=== PATIENT | male | born 1965 | race Caucasian/White ===

== ENCOUNTER → 2020-11-02 14:30 | Outpatient (CLI) | payer BC, SELFPAY ==
[2020-11-02 17:37] LABS: Prostate Specific Ag, Diagnost 2.38 ng/ml (0.0-4.0)
== END ==
PROVIDERS: Visit Provider Urology
DX: N40.0 Benign prostatic hyperplasia without lower urinary tract symptoms (principal)
CPT/HCPCS: 36415; 84153

== ENCOUNTER → 2021-03-30 14:09 | Outpatient (CLI) | payer OTHER, SELFPAY ==
--- NOTE | 2021-03-30 14:14 | MR_ITS ---
PROCEDURE: MR KNEE LT WO CON CLINICAL INDICATION: STRAIN OF LEFT KNEE Medial sided knee pain COMPARISON: No exams were available for comparison TECHNIQUE: Routine multiplanar multi echo sequences are performed without gadolinium enhancement. FINDINGS: Posterior cruciate ligament is intact. There is some mild sparsely of the fibers of the ACL with mild amount of edema within the ACL which may be due to sprain versus partial tear. A full-thickness tear is not felt to be present.. The collateral ligaments, patellar tendon, and quadriceps tendon appear intact. There is a longitudinal tear involving the posterior horn of the medial meniscus anteriorly. The lateral meniscus has an unremarkable appearance. There is mild lateral translation of the tibia at approximately 4 mm. Mild osteoarthritic changes are present. The patellar cartilage is preserved. There is mild lateral patellar subluxation. The patellofemoral ligaments do appear intact. There is a small knee joint effusion. There is a well-circumscribed lytic lesion of the distal femur medially at the metaphyseal epiphyseal junction. This measures 15 by 10 mm. The margins are well-circumscribed. This has a geographic appearance with some micro nodularity of the margin. Internally there are areas of heterogeneous decreased T2 signal there is a small amount of pretibial edema. IMPRESSION: 1. Longitudinal tear involves the posterior horn of the medial meniscus anteriorly. This tear extends to the medial free edge of the meniscus. 2. Suspect sprain/partial tear of the ACL. No evidence of full-thickness tear. 3. Mild osteoarthritic change with small knee joint effusion. 4. Well-circumscribed complex lytic lesion of the distal femur medially at the diaphyseal epiphyseal junction. This may represent an enchondroma. Imaging keys, 1 cannot exclude a low-grade chondral carcinoma. Consider orthopedic consultation and CT to better interrogate the margins of the lesion and to identify any possible calcified matrix. Follow-up to confirm stability is suggested.. Dictated by: Vernon Rodriguez MD 03/31/2021 11:10 Vernon Rodriguez MD in [place] 03/31/2021 11:10
== END ==
PROVIDERS: PCP Family Medicine; Visit Provider Preventive Medicine Occupational Medicine
DX: S86.912A Strain of unspecified muscle(s) and tendon(s) at lower leg level, left leg, initial encounter (principal)
CPT/HCPCS: 73721

== ENCOUNTER 2021-05-12 09:00 | Outpatient (RCR) | payer OTHER, SELFPAY | END 2021-05-12 09:05 | disposition home or self-care (01) | LOC: PT 09:00 | PROVIDERS: Visit Provider Orthopaedic Surgery | DX: M25.562 Pain in left knee (principal); S83.242A Other tear of medial meniscus, current injury, left knee, initial encounter | CPT/HCPCS: 97010; 97014; 97016; 97033; 97035; 97110; 97163; G0283 ==

== ENCOUNTER 2021-10-14 14:00 | Outpatient (RCR) | payer OTHER, SELFPAY | END 2021-10-14 14:05 | disposition home or self-care (01) | LOC: PT 14:00 | PROVIDERS: Visit Provider Orthopaedic Surgery | DX: M25.562 Pain in left knee (principal); S83.242A Other tear of medial meniscus, current injury, left knee, initial encounter | CPT/HCPCS: 97010; 97014; 97016; 97110; 97163; 97164; G0283 ==

== ENCOUNTER → 2021-11-05 17:02 | Outpatient (CLI) | payer OTHER, SELFPAY ==
--- NOTE | 2021-11-05 17:06 | MR_ITS ---
PROCEDURE INFORMATION: Exam: MR Left Lower Extremity Joint Without Contrast, Knee Exam date and time: 11/05/2021 5:06 PM Age: 56 years old Clinical indication: Pain; Knee; Left; Prior surgery; Surgery date: 1-6 months; Additional info: Left knee pain TECHNIQUE: Imaging protocol: MR of the Left lower extremity joint without contrast. Exam focused on the knee. COMPARISON: MR KNEE LT WO CON 03/30/2021 2:30 PM FINDINGS: Bones and cartilage: Unchanged 1.2 x 1.6 x 1.2 cm chondroid lesion in the medial femoral condyle, with small foci of intrinsic mineralization and a circumscribed margin, most likely an enchondroma. Bone island in the proximal tibia. No acute fracture. Mild tricompartmental osteophytosis. Thinning with a few small partial-thickness defects noted in the medial tibiofemoral compartment. Minimal surface fraying of the median patellar ridge and lateral patellar facet cartilage. Lateral tibiofemoral compartment cartilage is relatively well preserved. Joint spaces: Small joint effusion. Bursae: Small Luong's cyst measuring approximately 1.5 x 1.0 x 3.0 cm. Medial meniscus: Partial extrusion of the medial meniscus anterior horn, similar to prior. Interval truncation of the medial meniscus body and posterior horn, suggesting post-meniscectomy change for treatment of previously demonstrated tear. There is mild intrasubstance high signal within the posterior horn of the medial meniscus without extension to the articular surface. Lateral meniscus: Lateral meniscus is normal. Anterior cruciate ligament: Chronic partial injury of the anterior cruciate ligament, without evidence of an acute tear. Posterior cruciate ligament: Unremarkable. No tear. Medial capsule and supporting structures: Unremarkable. No tear. Lateral capsule and supporting structures: Unremarkable. No tear. Extensor mechanism of knee: Unremarkable. No tear. Muscles: Unremarkable. Soft tissues: Nonspecific anterior subcutaneous edema in the infrapatellar/pretibial region, without organized fluid collection. IMPRESSION: 1. Suspected post meniscectomy changes of the medial meniscus body and posterior horn. Intrasubstance high signal in posterior horn of the medial meniscus without discrete residual or recurrent tear. 2. Mild grade 2 chondromalacia in the medial tibiofemoral and patellofemoral compartments. Mild osteoarthrosis. 3. Chronic partial injury of the ACL. 4. Small joint effusion. Small Luong's cyst. 5. Nonspecific anterior subcutaneous edema. 6. 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
== END ==
PROVIDERS: PCP Family Medicine; Visit Provider Orthopaedic Surgery
DX: S83.242D Other tear of medial meniscus, current injury, left knee, subsequent encounter (principal)
CPT/HCPCS: 73721

== ENCOUNTER → 2021-12-14 15:19 | Outpatient (CLI) | payer OTHER, SELFPAY | PROVIDERS: Visit Provider Nurse Practitioner | DX: U07.1 COVID-19 (principal) | CPT/HCPCS: C9803; U0003; U0005 ==

== ENCOUNTER → 2022-02-01 12:10 | Outpatient (CLI) | payer OTHER, SELFPAY | PROVIDERS: PCP Family Medicine; Visit Provider Nurse Practitioner Family | DX: R00.2 Palpitations (principal); I10 Essential (primary) hypertension; E78.5 Hyperlipidemia, unspecified; R94.31 Abnormal electrocardiogram [ECG] [EKG] | CPT/HCPCS: 93270 ==

== ENCOUNTER → 2022-02-09 09:26 | Outpatient (CLI) | payer BC, SELFPAY ==
--- NOTE | 2022-02-09 09:28 | CA_ITS ---
APPROVED REPORT EXAM: Comprehensive 2D, Doppler, and color-flow Echocardiogram Poly Operator: DEBRA Gilman, RVS Ht: 6 ft 0 in Wt: 251lbs BSA: 2.35 BP: 140/80 mmHg Indications: MURMUR, Palpitattions. HTN, HLD, Hx-TIA, Abn EKG 2D Dimensions IVSd 1.16 cm LVEF (Visual) 84.90 % PWd 1.24 cm LA Volume 72.70 mL LVDd 4.96 cm LA Volume Index 30.90 mL/m2 (M/F) 16-34 LVDs 2.27 cm Aortic Root 2.73 cm Left Atrium 4.03 cm LVOT 1.80 cm (M/F) 1.5-2.5 M-Mode Dimensions RVDd 2.50 cm (0.9-2.6) LA Diam 4.57 cm (1.9-4.0) LVDd 5.43 cm (3.5-5.7) Ao Diam 3.20 cm (2.0-3.7) LVDs 2.92 cm (3.5-5.7) IVSd 1.06 cm (0.6-1.1) PWd 0.91 cm (0.6-1.1) EF (Teich) 77.10% EPSs 0.46 cm FS 46.20% EDV (Teich) 143.10 mL TAPSE 2.91 (<1.7) ESV (Teich) 32.80 mL LV Diastology E Decel Time 290.00 (160-240 msec) E/A Ratio 1.03 MED E' 7.40 (< 7 cm/sec) MED A' 9.50 cm/s E'/MED E' Ratio 23.08 (>14) LAT E' 9.70 (<10 cm/sec) LAT A' 7.70 cm/s E/LAT E' Ratio 17.61 (>14) Aortic Valve LVOT Max 154.00 (70-110 cm/s) LVOT VTI 36.18 cm AoV Peak Ari. 163.00 (50-130 cm/s) AO Peak GR. 10.60 mmHg AO Mean GR. 5.40 (<5 mmHg) AO VTI 35.83 (18-25 cm) CRISTOFER (VTI) 2.57 (2.5-4.5 cm2) Mitral Valve MV A Velocity 165.00 (40-130 cm/s) E/A Ratio 1.03 MV Decel. Time 290.00 (160-240 ms) MV Mean Gr. 1.40 (<2mmHg) MV PHT 67.00 ms Pulmonary Valve PV Peak Velocity 95.00 (50-150 cm/s) Tricuspid Valve TR P. Velocity 239.00 cm/s RAP Estimate 10.00 mmHg RVSP 32.80 mmHg Left Ventricle Left atrium is mildly enlarged, left ventricle is normal size, mild concentric left ventricular hypertrophy, visually estimated ejection fraction 55% with no regional wall motion abnormality, grade 1 diastolic dysfunction seen without tissue Doppler evidence of raise left atrial pressure. Right Ventricle Right atrium and right ventricle are normal size and contractility. Aortic Valve Aortic valve is minimally thickened and fibrosed, there is no aortic stenosis or aortic insufficiency. Mitral Valve Mitral valve grossly normal, there is trace mitral regurgitation. Tricuspid Valve Tricuspid grossly normal, there is trace tricuspid regurgitation, tricuspid regurgitation jet velocity is inadequate for calculation of the right ventricular systolic pressure. Pulmonic Valve Pulmonic valve is poorly visualized. Great Vessels Aortic root is normal size. Inferior vena cava is poorly visualized. Pericardium No significant pericardial effusion. Conclusion 1. Mildly enlarged left atrium, normal left ventricular size, mild concentric left ventricular hypertrophy, visually estimated ejection fraction 55% with no regional wall motion abnormality, grade 1 diastolic dysfunction seen without tissue Doppler evidence of raise left atrial pressure. 2. Trace mitral and tricuspid regurgitation. 3. No significant pericardial effusion. 4. Inferior vena cava is poorly visualized. Electronically signed by : Ulisses Scott MD 02/09/2022 19:55:54
== END ==
PROVIDERS: PCP Family Medicine; Visit Provider Nurse Practitioner Family
DX: R00.2 Palpitations (principal); I10 Essential (primary) hypertension; E78.5 Hyperlipidemia, unspecified; R94.31 Abnormal electrocardiogram [ECG] [EKG]
CPT/HCPCS: 93306

== ENCOUNTER → 2022-11-09 11:33 | Outpatient (CLI) | payer BC, SELFPAY ==
[2022-11-09 12:06] LABS: Basophils # 0.1 K/mm3 (0-0.2); Basophils % 1.8 % (0.1-2.0); Eosinophils # 0.2 K/mm3 (0.0-0.4); Eosinophils % 3.8 % (0.1-12.0); Hemoglobin 15.4 g/dL (14.1-18.0); Lymphocytes # 1.8 K/mm3 (0.7-4.5); Lymphocytes % 31.8 % (10-50); Mean Corpuscular HGB Conc 33.5 g/dL (31.8-35.4); Mean Corpuscular Hemoglobin 28.1 pg (27.0-31.2); Mean Corpuscular Volume 83.9 fl (80-94); Mean Platelet Volume 7.2 fl (7.4-10.4); Monocytes # 0.3 K/mm3 (0.1-1.0); Monocytes % 5.6 % (1.7-9.3); Neutrophils # 3.2 K/mm3 (1.8-7.8); Platelet Count 316 K/mm3 (142-424); Red Blood Count 5.48 M/mm3 (4.60-6.20); Red Cell Distribution Width 13.6 % (11.5-17.5); White Blood Count 5.7 K/mm3 (4.8-10.8)
[2022-11-09 12:59] LABS: Alanine Aminotransferase 26 U/L (12-78); Albumin Level 4.5 g/dl (3.5-5.0); Alkaline Phosphatase 54 U/L (38-126); Anion Gap 10.3 mEq/L (5-15); Aspartate Amino Transferase 32 U/L (17-59); Bilirubin,Direct 0.1 mg/dl (0.0-0.4); Bilirubin,Indirect 0.3 mg/dL (0.0-0.9); Bilirubin,Total 0.4 mg/dl (0.2-1.3); Bilirubin,Unconjugated 0.3 mg/dL (0.0-1.1); Blood Urea Nitrogen 19 mg/dl (9-20); Calcium 9.4 mg/dl (8.4-10.2); Carbon Dioxide 32 mmol/L (22.0-30.0); Chloride 104 mmol/L (98-107); Chol/HDL Ratio 6.6 (1-3.5); Cholesterol 166 mg/dl (140-200); Estimated Glomerular Filt Rate 69 ml/min (>60); GFR (African American) 83 ML/MIN (>60); Glucose 104 mg/dl (74-100); HDL Cholesterol 25 mg/dl (40-60); Magnesium 2.1 mg/dl (1.6-2.3); Potassium 4.3 mmoL/L (3.5-5.1); Sodium 142 mmol/L (136-145); Total Protein,Serum 7.1 g/dl (6.3-8.2); Triglycerides 206 mg/dl (30-150); VLDL Cholesterol 41 mg/dL (0-40)
[2022-11-09 13:10] LABS: Direct LDL Cholesterol 102.87 mg/dL (100-129)
[2022-11-09 13:17] LABS: Free T4 (Free Thyroxine) 0.58 ng/dl (0.78-2.19)
== END ==
PROVIDERS: PCP Nurse Practitioner Family; Visit Provider Physician Assistant
DX: R00.2 Palpitations (principal); I48.0 Paroxysmal atrial fibrillation; I10 Essential (primary) hypertension; E78.5 Hyperlipidemia, unspecified; R94.31 Abnormal electrocardiogram [ECG] [EKG]; Z79.899 Other long term (current) drug therapy
CPT/HCPCS: 36415; 80048; 80061; 80076; 83735; 84439; 84443; 85025

== ENCOUNTER → 2022-11-21 13:20 | Outpatient (CLI) | payer BC, SELFPAY ==
--- NOTE | 2022-11-21 13:27 | US_ITS ---
FINAL REPORT CLINICAL HISTORY: THYROID NODULE, pt stated abn labs FINDINGS: THYROID ULTRASOUND Thyroid gland is slightly enlarged. The right lobe measures 54 x 12 x 11 mm. The left lobe measures 49 x 11 x 10 mm. The parenchyma shows normal echogenicity. No dominant mass is seen. IMPRESSION: Slightly enlarged thyroid. No dominant mass identified. Reviewed, Interpreted and Dictated by Pillo Alcocer III, MD Transcribed by Steven Saldana Authenticated and [facility]
== END ==
LOC: RAD 13:21
PROVIDERS: PCP Nurse Practitioner Family; Visit Provider Nurse Practitioner Family
DX: E03.9 Hypothyroidism, unspecified (principal); E04.1 Nontoxic single thyroid nodule
CPT/HCPCS: 76536

== ENCOUNTER → 2023-11-13 16:08 | Outpatient (CLI) | payer BC, SELFPAY ==
[2023-11-13 16:16] LABS: Microscopic, Urine URINE MICROSCOPIC (MICROSCOPIC)
[2023-11-13 16:39] LABS: Appearance,Urine CLEAR (Clear); Bilirubin,Urine Negative (Negative); Blood, Urine Negative (Negative); Color,Urine YELLOW (Yellow); Glucose,Urine (UA) Negative (Negative); Ketones,Urine Negative (Negative); Leukocyte Esterase,Urine Negative (Negative); Nitrate,Urine Negative (Negative); Protein,Urine TRACE (Negative); Specific Gravity, Urine >= 1.030 (1.005-1.030); Urobilinogen,Urine 0.2 EU/dl (0.2)
[2023-11-13 16:45] LABS: Squamous Epithelial Cell,Urine Occasional #/hpf (0-5); WBC,Urine Occasional #/hpf (0-3)
[2023-11-13 16:55] LABS: Basophils % 0.4 % (0.1-2.0); Eosinophils # 0.2 K/mm3 (0.0-0.4); Eosinophils % 2.2 % (0.1-12.0); Hematocrit 43.3 % (42.0-52.0); Lymphocytes # 2.1 K/mm3 (0.7-4.5); Lymphocytes % 29.8 % (10-50); Mean Corpuscular HGB Conc 34.6 g/dL (31.8-35.4); Mean Corpuscular Hemoglobin 28.3 pg (27.0-31.2); Mean Platelet Volume 6.5 fl (7.4-10.4); Monocytes # 0.3 K/mm3 (0.1-1.0); Monocytes % 4.5 % (1.7-9.3); Neutrophils # 4.6 K/mm3 (1.8-7.8); Neutrophils % 63.2 % (37.0-80.0); Platelet Count 278 K/mm3 (142-424); Red Blood Count 5.28 M/mm3 (4.60-6.20); Red Cell Distribution Width 13.3 % (11.5-17.5); White Blood Count 7.2 K/mm3 (4.8-10.8)
[2023-11-13 17:17] LABS: Alanine Aminotransferase 20 U/L (12-78); Albumin Level 4.3 g/dl (3.5-5.0); Albumin/Globulin Ratio 1.4 (1.1-1.8); Alkaline Phosphatase 51 U/L (38-126); Anion Gap 9.4 mEq/L (5-15); Aspartate Amino Transferase 37 U/L (17-59); Bilirubin,Total 0.4 mg/dl (0.2-1.3); Blood Urea Nitrogen 18 mg/dl (9-20); Calcium 8.6 mg/dl (8.4-10.2); Carbon Dioxide 28 mmol/L (22.0-30.0); Chloride 106 mmol/L (98-107); Chol/HDL Ratio 6.3 (1-3.5); Cholesterol 133 mg/dl (140-200); Estimated Glomerular Filt Rate 77 ml/min (>60); GFR (African American) 93 ML/MIN (>60); Globulin 3.1 g/dL (1.3-3.2); Glucose 97 mg/dl (74-100); HDL Cholesterol 21 mg/dl (40-60); Potassium 4.4 mmoL/L (3.5-5.1); Sodium 139 mmol/L (136-145); Total Protein,Serum 7.4 g/dl (6.3-8.2); Triglycerides 187 mg/dl (30-150); VLDL Cholesterol 37 mg/dL (0-40)
[2023-11-13 17:28] LABS: Direct LDL Cholesterol 86.66 mg/dL (100-129)
[2023-11-13 17:33] LABS: Free T4 (Free Thyroxine) 1.62 ng/dl (0.78-2.19)
[2023-11-13 17:48] LABS: Prostate Specific Ag Screen 3.3 ng/ml (0.0-4.0)
[2023-11-15 08:17] LABS: Prolactin 6.5 ng/mL (3.6-25.2)
== END ==
LOC: LAB 16:09
PROVIDERS: PCP Nurse Practitioner Family; Visit Provider Nurse Practitioner Family
DX: R35.0 Frequency of micturition (principal); E03.9 Hypothyroidism, unspecified; I48.0 Paroxysmal atrial fibrillation; I10 Essential (primary) hypertension
CPT/HCPCS: 36415; 80053; 80061; 81001; 84146; 84439; 84443; 85025; G0103

== ENCOUNTER → 2023-11-17 13:07 | Outpatient (CLI) | payer BC, SELFPAY ==
--- NOTE | 2023-11-17 13:13 | US_ITS ---
FINAL REPORT CLINICAL HISTORY: HYPOTHYROIDISM COMPARISON: 11/21/2022 FINDINGS: THYROID ULTRASOUND: The right lobe of the thyroid measures 5 x 1.2 x 1.3 cm in size. The left lobe of the thyroid gland measures 4 x 1.3 x 1 cm in size. The isthmus of the thyroid gland measures 3.4 mm in thickness. No nodules or masses are noted in the thyroid gland. No changes noted since the prior ultrasound of 2021. IMPRESSION: Unremarkable thyroid ultrasound. No focal mass or nodule identified. Reviewed, Interpreted and Dictated by Can Whitehead MD Transcribed by Jessica Su Authenticated and [facility]
== END ==
LOC: RAD 13:07
PROVIDERS: PCP Nurse Practitioner Family; Visit Provider Nurse Practitioner Family
DX: E03.9 Hypothyroidism, unspecified (principal)
CPT/HCPCS: 76536

== ENCOUNTER 2023-12-18 14:36 | Outpatient (CLI) | payer BC, SELFPAY ==
--- NOTE | 2023-12-18 14:43 | CT_ITS ---
FINAL REPORT TECHNIQUE: Axial CT images of the chest were obtained without contrast. Low-dose protocol was utilized. This study was performed with techniques to keep radiation doses as low as reasonably achievable (ALARA). Individualized dose reduction techniques using automated exposure control or adjustment of mA and/or kV according to the patient's size were employed. CLINICAL HISTORY: Former smoker, quit 10 years ago. Patient did smoke half a pack of cigarettes a day for 20 years. He is exposed to second hand smoke. States he is not currently having problems breathing at this time. This is his first low dose lung screening exam. COMPARISON: None FINDINGS: CT CHEST WITHOUT, LOW DOSE SCREENING CT Di Vol: 2.90 mGy DLP: 111.51 mGy*cm There is no mediastinal mass or adenopathy. The heart size is normal. There are mild coronary artery calcifications. There is no pleural or pericardial effusion. The lung windows show a 3 mm noncalcified nodule in the right upper lobe best seen on image 32 of series 4. Limited images of the upper abdomen demonstrate no acute findings. IMPRESSION: LR Category 2: 12 month follow-up low-dose chest CT is recommended. Reviewed, Interpreted and Dictated by Can Whitehead MD Transcribed by Elin Edwards Authenticated and [facility]
== END 2023-12-18 23:59 ==
LOC: RAD 14:39
PROVIDERS: PCP Nurse Practitioner Family; Visit Provider Nurse Practitioner Family
DX: Z87.891 Personal history of nicotine dependence (principal)
CPT/HCPCS: 71271

== ENCOUNTER 2024-11-25 10:27 | Outpatient (CLI) | payer BC, SELFPAY ==
--- NOTE | 2024-11-25 10:30 | CT_ITS ---
FINAL REPORT CLINICAL HISTORY: TOBACCO USE current smoker 1/2ppd x46 years COMPARISON: 12/18/2023 FINDINGS: CTDI vol (mGy): 2.90 DLP: 110.[address] images of the chest were obtained using the low-dose protocol for screening. There is no evidence of mediastinal or hilar mass or adenopathy. No axillary mass or adenopathy is identified. On the lung window images, a stable 3 mm right upper lobe nodule is seen on image 31 of series 4. There is also a right lower lobe nodule measuring 3 mm on series 4, image 60 which is unchanged. Lungs are otherwise clear. Mild coronary artery calcifications are noted. Limited imaging of the upper abdomen is without acute abnormality. IMPRESSION: Stable right lung nodules. Lung RADS category 2. Recommend 12 month followup low-dose CT for further evaluation. Reviewed, Interpreted and Dictated by Maritza Portillo MD Transcribed by Melly Rojas Authenticated and [facility]
[2024-11-25 11:34] LABS: Microscopic, Urine URINE MICROSCOPIC (MICROSCOPIC)
[2024-11-25 11:51] LABS: Appearance,Urine CLEAR (Clear); Bilirubin,Urine Negative (Negative); Blood, Urine Negative (Negative); Color,Urine YELLOW (Yellow); Glucose,Urine (UA) Negative (Negative); Ketones,Urine Negative (Negative); Leukocyte Esterase,Urine Negative (Negative); Nitrate,Urine Negative (Negative); Protein,Urine Negative (Negative); Specific Gravity, Urine >= 1.030 (1.005-1.030); Urobilinogen,Urine 0.2 EU/dl (0.2)
[2024-11-25 12:00] LABS: Squamous Epithelial Cell,Urine Occasional #/hpf (0-5)
[2024-11-25 12:02] LABS: Basophils % 0.5 % (0.1-2.0); Eosinophils # 0.2 K/mm3 (0.0-0.4); Eosinophils % 2.6 % (0.1-12.0); Hematocrit 43.2 % (42.0-52.0); Hemoglobin 14.9 g/dL (14.1-18.0); Lymphocytes # 1.7 K/mm3 (0.7-4.5); Lymphocytes % 26.4 % (10-50); Mean Corpuscular HGB Conc 34.5 g/dL (31.8-35.4); Mean Corpuscular Hemoglobin 28.8 pg (27.0-31.2); Mean Corpuscular Volume 83.4 fl (80-94); Mean Platelet Volume 8.7 fl (7.4-10.4); Monocytes # 0.5 K/mm3 (0.1-1.0); Neutrophils # 4.2 K/mm3 (1.8-7.8); Neutrophils % 63.2 % (37.0-80.0); Platelet Count 238 K/mm3 (142-424); Red Blood Count 5.18 M/mm3 (4.60-6.20); Red Cell Distribution Width 12.8 % (11.5-17.5); White Blood Count 6.6 K/mm3 (4.8-10.8)
[2024-11-25 17:48] LABS: Alanine Aminotransferase 31 U/L (12-78); Albumin Level 4.4 g/dl (3.5-5.0); Albumin/Globulin Ratio 1.9 (1.1-1.8); Alkaline Phosphatase 40 U/L (38-126); Aspartate Amino Transferase 44 U/L (17-59); Bilirubin,Total 0.7 mg/dl (0.2-1.3); Blood Urea Nitrogen 25 mg/dl (9-20); Calcium 9.1 mg/dl (8.4-10.2); Carbon Dioxide 28 mmol/L (22.0-30.0); Chloride 105 mmol/L (98-107); Chol/HDL Ratio 7.2 (1-3.5); Cholesterol 159 mg/dl (140-200); Estimated Glomerular Filt Rate 76 ml/min (>60); GFR (African American) 93 ML/MIN (>60); Globulin 2.3 g/dL (1.3-3.2); Glucose 116 mg/dl (74-100); HDL Cholesterol 22 mg/dl (40-60); Sodium 139 mmol/L (136-145); Total Protein,Serum 6.7 g/dl (6.3-8.2); Triglycerides 165 mg/dl (30-150); VLDL Cholesterol 33 mg/dL (0-40)
[2024-11-25 17:58] LABS: Direct LDL Cholesterol 100.81 mg/dL (100-129)
[2024-11-25 18:19] LABS: Prostate Specific Ag Screen 3.8 ng/ml (0.0-4.0)
== END 2024-11-25 23:59 | disposition home or self-care (01) ==
LOC: RAD 10:28
PROVIDERS: PCP Nurse Practitioner Family; Visit Provider Nurse Practitioner Family
DX: I48.0 Paroxysmal atrial fibrillation (principal); F17.210 Nicotine dependence, cigarettes, uncomplicated; I10 Essential (primary) hypertension; E03.9 Hypothyroidism, unspecified; Z79.899 Other long term (current) drug therapy
CPT/HCPCS: 36415; 71271; 80050; 80053; 80061; 81001; 84443; 85025; G0103

== ENCOUNTER 2024-12-09 13:26 | Outpatient (CLI) | payer BC, SELFPAY ==
--- NOTE | 2024-12-09 14:46 | XR_ITS ---
FINAL REPORT CLINICAL HISTORY: MID BACK PAIN RT SIDE COMPARISON: None FINDINGS: Three views of the thoracic spine were obtained. There is no fracture present. There is no malalignment. There is moderate diffuse degenerative disc disease and mild spondylosis. IMPRESSION: Degenerative changes. Reviewed, Interpreted and Dictated by Govind Del Real MD Transcribed by Zahra Levine Authenticated and [facility]
[2024-12-09 15:13] LABS: Hemoglobin A1C 5.7 % (4.0-6.0)
--- NOTE | 2024-12-09 15:43 | XR_ITS ---
FINAL REPORT TECHNIQUE: 5 views CLINICAL HISTORY: LOW BACK PAIN FINDINGS: There is no fracture present. There is no malalignment. There is mild diffuse degenerative disc disease with moderate facet arthropathy. There is probable bony neuroforaminal narrowing throughout multiple levels. IMPRESSION: Moderate degenerative changes without fracture. Reviewed, Interpreted and Dictated by Govind Del Real MD Transcribed by Sayra Braswell Authenticated and [facility]
== END 2024-12-09 23:59 | disposition home or self-care (01) ==
LOC: LAB 13:27
PROVIDERS: PCP Nurse Practitioner Family; Visit Provider Nurse Practitioner Family
DX: M54.9 Dorsalgia, unspecified (principal); R73.09 Other abnormal glucose; M54.50 Low back pain, unspecified
CPT/HCPCS: 36415; 72072; 72110; 83036

== ENCOUNTER 2024-12-17 16:27 | Emergency (ER) | payer BC, SELFPAY ==
--- NOTE | 2024-12-17 16:33 | XR_ITS ---
PROCEDURE INFORMATION: Exam: XR Chest Exam date and time: 12/17/2024 4:32 PM Age: 59 years old Clinical indication: Cough and shortness of breath; Additional info: SOA TECHNIQUE: Imaging protocol: Radiologic exam of the chest. Views: 2 views. COMPARISON: CT LUNG SCREENING 11/25/2024 10:30 AM FINDINGS: Lungs: There is a large consolidation in the left lower lobe concerning for pneumonia. Pleural spaces: No large effusion or pneumothorax. Heart/Mediastinum: Stable cardiac and mediastinal contours. Bones/joints: No evidence of acute osseous abnormalities within the visualized portions of the thoracic spine and ribs. Osseous structures appear appropriate for patient age. IMPRESSION: There is a large consolidation in the left lower lobe concerning for pneumonia.
--- NOTE | 2024-12-17 16:57 | ED_ITS ---
Discharge Plan Disposition Patient Disposition: Home, Self-Care Condition: Good Prescriptions Prescriptions: New prednisone 10 mg tablet 10 mg PO DIRECTED 9 Days Qty: 21 0RF Rx Instructions: Take 4 tablets daily for 3 days, then take 2 tablets daily for 3 days, then take 1 tablet daily for 3 days, then stop. azithromycin [Zithromax] 250 mg tablet 250 mg PO UD DOSE PK Qty: 6 0RF Rx Instructions: Take two (2) tablets today, then one (1) tablet days #2 thru #5 benzonatate 100 mg capsule 100 mg PO TIDP PRN (Reason: Cough) Qty: 30 0RF amoxicillin-pot clavulanate 875-125 mg Tablet 1 tab PO Q12H Qty: 20 0RF No Action trazodone 50 mg tablet 50 mg PO DAILY 90 Days Qty: 90 3RF Xarelto 20 mg tablet 20 mg PO DAILY Qty: 90 3RF Rx Instructions: must administer with evening meal levothyroxine 200 mcg tablet 200 mcg PO DAILY sertraline 100 mg tablet 150 mg PO DAILY zinc gluconate 50 mg tablet 50 mg PO DAILY cyanocobalamin (vitamin B-12) [Vitamin B-12] 500 mcg tablet 500 mcg PO DAILY ascorbic acid (vitamin C) 500 mg capsule PO coenzyme Q10 [CoQ-10] 100 mg capsule 100 mg PO DAILY multivitamin [Multiple Vitamins] Tablet 1 tab PO DAILY lisinopril-hydrochlorothiazide 20-12.5 mg tablet See Rx Instructions .ROUTE .COMPLEX Qty: 90 0RF Dose Instruction: TAKE 1 TABLET BY MOUTH ONCE DAILY Rx Instructions: TAKE 1 TABLET BY MOUTH ONCE DAILY pravastatin 10 mg tablet See Rx Instructions .ROUTE .COMPLEX Qty: 90 0RF Dose Instruction: TAKE 1 TABLET BY MOUTH ONCE DAILY Rx Instructions: TAKE 1 TABLET BY MOUTH ONCE DAILY metoprolol succinate 50 mg tablet extended release 24 hr See Rx Instructions .ROUTE .COMPLEX Qty: 90 1RF Dose Instruction: TAKE 1 TABLET BY MOUTH ONCE DAILY Rx Instructions: TAKE 1 TABLET BY MOUTH ONCE DAILY famotidine 40 mg tablet 40 mg PO HS Qty: 30 6RF omeprazole 40 mg capsule,delayed release(DR/EC) 40 mg PO DAILY Qty: 30 6RF Referrals Follow up/Referrals: Carlos Wheeler MD [Primary Care Provider] - See instructions Activity Restrictions/Add. Instructions Additional Instructions/Restrictions: Drink plenty of fluids. Take tylenol or ibuprofen for pain or fever. Take the medications as directed. Follow up with your regular doctor. GO TO THE ER FOR ANY WORSENING SYMPTOMS Don't start the oral steroids (medrol dose pack) until tomorrow since you had the shot here Clinical Impressions Clinical Impression: Left lower lobe pneumonia Stand Alone Forms Stand Alone Forms: Work/School Release Instructions Patient Instructions: Pneumonia--Adult, Methylprednisolone, Amoxicillin and Clavulanic Acid, Azithromycin Print Language Print Language: Latvian Discharge ED Provider: Stefan Schaffer [facility] General Stated complaint: cough, SOA Time Seen by Provider: 12/17/24 16:57 History of Present Illness Provider Complaint: He states that for the past 7 days he has had worsening cough, mild shortness of breath, fever, fatigue, weakness and malaise. Related Data Home Medications ?Medication ?Instructions ?Recorded ?Confirmed levothyroxine 200 mcg tablet 200 mcg PO DAILY 12/03/24 12/09/24 sertraline 100 mg tablet 150 mg PO DAILY 12/03/24 12/09/24 ascorbic acid (vitamin C) 500 mg mg PO 12/09/24 12/09/24 capsule coenzyme Q10 100 mg capsule 100 mg PO DAILY 12/09/24 12/09/24 (CoQ-10) cyanocobalamin (vitamin B-12) 500 500 mcg PO DAILY 12/09/24 12/09/24 mcg tablet (Vitamin B-12) multivitamin (Multiple Vitamins 1 tab PO DAILY 12/09/24 12/09/24 tablet) zinc gluconate 50 mg tablet 50 mg PO DAILY 12/09/24 12/09/24 Previous Rx's ?Medication ?Instructions ?Recorded trazodone 50 mg tablet 50 mg PO DAILY 90 days #90 tabs 08/25/23 rivaroxaban 20 mg tablet (Xarelto) 20 mg PO DAILY #90 tabs 01/09/24 lisinopril 20 See Rx Instructions .Route 06/05/24 mg-hydrochlorothiazide 12.5 mg .COMPLEX #90 tabs tablet pravastatin 10 mg tablet See Rx Instructions .Route 06/11/24 .COMPLEX #90 tabs metoprolol succinate 50 mg See Rx Instructions .Route 09/12/24 tablet,extended release 24 hr .COMPLEX #90 tabs famotidine 40 mg tablet 40 mg PO HS #30 tabs 10/29/24 omeprazole 40 mg capsule,delayed 40 mg PO DAILY #30 caps 10/29/24 release amoxicillin 875 mg-potassium 1 tab PO Q12H #20 tabs 12/17/24 clavulanate 125 mg tablet azithromycin 250 mg tablet 250 mg PO UD DOSE PK #6 tabs 12/17/24 (Zithromax) benzonatate 100 mg capsule 100 mg PO TIDP PRN Cough #30 caps 12/17/24 prednisone 10 mg tablet 10 mg PO DIRECTED 9 days #21 12/17/24 tabs Allergies Allergy/AdvReac Type Severity Reaction Status Date / Time No Known Allergies Allergy Verified 12/09/24 14:05 [facility] Disclaimer: The information contained in this section may have been updated after the patient was seen, as this information can be updated by other users. Medical History Globus sensation Throat clearing VINH (obstructive sleep apnea) PAF (paroxysmal atrial fibrillation) HLD (hyperlipidemia) HTN (hypertension) Abnormal electrocardiography Palpitations Surgical History History of appendectomy Previous back surgery H/O left knee surgery Family History Other Alcoholism Cancer Diabetes Heart attack Social History Smoking Status: Current some day smoker alcohol intake: current alcohol intake frequency: holidays/special occasions only substance use type: former substance user and marijuana current occupational status: employed Travel in the last 8 weeks: None household members: spouse housing: house marital status: Have you lived/traveled outside [place] in past 30 days?: No Contact w/someone who lives/traveled outside US past 30 days?: No Exposure to someone with infectious disease in past 14 days?: No Do you have a fever (greater than 100.4 F or 38 C)?: No Have you tested positive for COVID-19: No Exposed to someone with COVID-19 in past 14 days?: No Do you have a sore throat?: No Do you have a cough?: Yes Do you have any weakness?: No Do you have any diarrhea?: No Are you experiencing any unusual bleeding?: No Do you have any muscle aches/pain?: No Do you have any abdominal pain?: No Are you experiencing loss of taste or smell?: No ROS Obtained: Yes All systems reviewed & no additional complaints except as documented Constitutional Constitutional: Reports as per HPI, Reports chills, Reports fever(s) and Reports poor appetite Eyes Eyes: Reports system reviewed and no additional complaints, except as documented ENT Ears, Nose, Mouth, and Throat: Reports as per HPI Cardiovascular Cardiovascular: Reports system reviewed and no additional complaints, except as documented and Denies chest pain Respiratory Respiratory: Denies shortness of breath, Reports chest congestion, Reports cough, Denies stridor and Denies wheezing Gastrointestinal Gastrointestingal: Reports system reviewed and no additional complaints, except as documented; Denies abdominal pain, diarrhea or vomiting Musculoskeletal Musculoskeletal: Reports system reviewed and no additional complaints, except as documented and Denies arthralgias Integumentary/Breasts Skin/Breast: Reports system reviewed and no additional complaints, except as documented and Denies rash Neurologic Neurologic: Denies paresthesias Allergic/Immunologic Allergic/Immunologic: Denies wheezing Physical Exam General General appearance: alert and in no apparent distress Head Head exam: atraumatic, normocephalic and normal inspection Eye Eye exam: Present normal appearance, PERRL and EOMI ENT ENT exam: Present normal exam, normal oropharynx, mucous membranes moist, TM's normal bilaterally and normal external ear exam Neck Neck exam: Present normal inspection, full ROM and trachea midline; Absent meningismus or lymphadenopathy Chest Chest inspection: Present normal inspection and symmetric chest wall rise; Absent tenderness Respiratory Respiratory exam: Present normal lung sounds bilaterally; Absent respiratory distress Cardiovascular Cardiovascular exam: Present regular rate and normal rhythm; Absent JVD Abdominal Exam Abdominal exam: Present soft and normal bowel sounds; Absent distention, tenderness or guarding Extremities Exam Extremities exam: Present normal inspection, full ROM and normal capillary refill; Absent calf tenderness Back Exam Back exam: Present normal inspection; Absent tenderness Neurological Exam Neurological exam: Present alert and oriented X3 Psychiatric Psychiatric exam: Present normal affect and normal mood Skin Skin exam: Present warm, dry, intact and normal color Lymphatic Lymphatic Findings: no adenopathy Medical Decision Making Medical Records Medical records reviewed: No I reviewed the patient's medical records. Screening: Per USPSTF and CDC recommendations, given the prevalence of disease in our region, it is our hospital?s policy to screen for HIV and viral Hepatitis for all patients aged 18 and over and those with ongoing risk factors. El Inquiry Pt receiving controlled substance: No Orders (Tests/Meds): ORDERS Category Date Time Status Chest XR 2 view (NOT portable) [XR chest 2V] Stat Exams 12/17/24 16:33 Taken Radiology Data #1: Image(s): Chest Image Reviewed: Yes I reviewed the patient's radiology image and Yes I have reviewed radiologist's interpretation Preliminary Findings: Abnormal Accession No. : [id number] Patient Name / ID : DAVID BETANCOURT / [id number] Exam Date : 12/17/2024 16:32:45 ( Final ) Study Comment : Sex / Age : M / 59Y Creator : JENNIE MERRITT MD Dictator : Bank Appraiser : Needle Punch Machine Operator : JENNIE MERRITT MD Approver2 : Report Date : 12/17/2024 16:58:39 My Comment : PROCEDURE INFORMATION: Exam: XR Chest Exam date and time: 12/17/2024 4:32 PM Age: 59 years old Clinical indication: Cough and shortness of breath; Additional info: SOA TECHNIQUE: Imaging protocol: Radiologic exam of the chest. Views: 2 views. COMPARISON: CT LUNG SCREENING 11/25/2024 10:30 AM FINDINGS: Lungs: There is a large consolidation in the left lower lobe concerning for pneumonia. Pleural spaces: No large effusion or pneumothorax. Heart/Mediastinum: Stable cardiac and mediastinal contours. Bones/joints: No evidence of acute osseous abnormalities within the visualized portions of the thoracic spine and ribs. Osseous structures appear appropriate for patient age. IMPRESSION: There is a large consolidation in the left lower lobe concerning for pneumonia. Medical Decision Narrative: he refused transfer to the ER
[2024-12-17 17:05] VITALS: BP 172/82; PULSE 64; RESP 22; TEMP 37.1; O2SAT 97; BMI 33.9
[2024-12-17] MEDS: DEXAMETHASONE 4MG/ML 1ML VIAL 8 MG IM (17:38)
[2024-12-17] MEDS: cefTRIAXone 1GM VIAL 1 GM IM (17:38)
[2024-12-17] MEDS: LIDOCAINE 1% 5ML PF VIAL IM (17:38)
[2024-12-17 18:03] VITALS: BP 172/82; PULSE 64; RESP 22; TEMP 37.1
[2024-12-17 18:05] LABS: Coronavirus 19, PCR Not Detected (NotDetected); Influenza A, PCR Not Detected (NotDetected); Influenza B, PCR Not Detected (NotDetected)
== END 2024-12-17 18:04 | disposition home or self-care (01) ==
PROVIDERS: Emergency Provider Nurse Practitioner Family; PCP Internal Medicine Nephrology
DX: J18.9 Pneumonia, unspecified organism (principal)
CPT/HCPCS: 71046; 87636; 99213; G0381; J0696; J1100

== ENCOUNTER 2025-01-22 13:43 | Day surgery (SDC) | payer BC, SELFPAY ==
[2025-01-21 11:48] VITALS: BMI 33.6
[2025-01-22 13:56] VITALS: BP 153/73; PULSE 62; RESP 18; TEMP 36.7; O2SAT 97
--- NOTE | 2025-01-22 13:59 | EXP.ANES.CKL ---
[facility] Disclaimer: The information contained in this section may have been updated after the patient was seen, as this information can be updated by other users. Medical History Globus sensation Throat clearing VINH (obstructive sleep apnea) PAF (paroxysmal atrial fibrillation) HLD (hyperlipidemia) HTN (hypertension) Abnormal electrocardiography Palpitations Surgical History History of appendectomy Previous back surgery H/O left knee surgery Family History Other Alcoholism Cancer Diabetes Heart attack Social History Smoking Status: Current some day smoker alcohol intake: current alcohol intake frequency: holidays/special occasions only substance use type: former substance user and marijuana current occupational status: employed Travel in the last 8 weeks: None household members: spouse housing: house marital status: Have you lived/traveled outside US in past 30 days?: No Contact w/someone who lives/traveled outside US past 30 days?: No Exposure to someone with infectious disease in past 14 days?: No Do you have a fever (greater than 100.4 F or 38 C)?: No Have you tested positive for COVID-19: No Exposed to someone with COVID-19 in past 14 days?: No Do you have a sore throat?: No Do you have a cough?: No Do you have any weakness?: No Do you have any diarrhea?: No Are you experiencing any unusual bleeding?: No Do you have any muscle aches/pain?: No Do you have any abdominal pain?: No Are you experiencing loss of taste or smell?: No [facility] Anesthesia Checklist Patient Identification Patient Identification: Arm Band and Verbal (Name & ) Structural Data Admitted From: Home Planned Operative Procedure/s: EGD Consent for Planned Operative Procedure(s) Verified: Yes Verified Documents: Surgical Consent NPO Status Verified Time NPO: 00:00 Additional verifications Patient : No Anesthesia Reactions: No Hx Blood Transfusions: No Blood Transfusion Reaction: No Cephalosporin Allergy: No Previous Colonoscopy: No Cardiovascular Assessment Heart Sounds: S1 & S2 Pulse Strength: Baseline Pulse Rhythm: Regular Peripheral Edema: No Airway Assessment Mallampati Score:: Class III C-Spine Mobility Assessed: Yes TMJ Mobility Assessed: Yes Dentition: Good Dentition Neurological Assessment Level of Consciousness: Awake, Alert and Appropriate Hx Seizures: No Numbness or tingling in extremities: No Anesthesia Plan Anesthesia Risk discussed: Yes Anesthesia Plan: Verified ASA Class: III Anesthesia Type: MAC
[2025-01-22] MEDS: LACTATED RINGERS 1000ML 1,000 ML 50 ML IV (14:19)
--- NOTE | 2025-01-22 14:36 | EXP.HP ---
History of Present Illness *Admission Date: 01/22/25 *Reason for visit:: Globus sensation/throat clearing and reflux *History of present illness: Mr. Knight is a 59-year-old gentleman with frequent clearance of the throat and globus sensation who is here for diagnostic EGD. ENT evaluation with laryngoscope showed laryngeal inflammation consistent with LPR/reflux. The examination is deemed medically necessary for EGD. The patient has been seen, interviewed and examined prior to the procedure by both myself and the anesthesia provider. [facility] Disclaimer: The information contained in this section may have been updated after the patient was seen, as this information can be updated by other users. Medical History Globus sensation Throat clearing VINH (obstructive sleep apnea) PAF (paroxysmal atrial fibrillation) HLD (hyperlipidemia) HTN (hypertension) Abnormal electrocardiography Palpitations Surgical History History of appendectomy Previous back surgery H/O left knee surgery Family History Other Alcoholism Cancer Diabetes Heart attack Social History (Updated 01/22/25 @ 14:13 by Negar Bermeo RN) Smoking Status: Former smoker alcohol intake: never substance use type: former substance user and marijuana current occupational status: employed Travel in the last 8 weeks: None household members: spouse housing: house marital status: caffeine: Yes Have you lived/traveled outside US in past 30 days?: No Contact w/someone who lives/traveled outside US past 30 days?: No Exposure to someone with infectious disease in past 14 days?: No Do you have a fever (greater than 100.4 F or 38 C)?: No Have you tested positive for COVID-19: No Exposed to someone with COVID-19 in past 14 days?: No Do you have a sore throat?: No Do you have a cough?: No Do you have any weakness?: No Are you experiencing any nausea/vomitting?: No Do you have any diarrhea?: No Are you experiencing any unusual bleeding?: No Do you have any muscle aches/pain?: No Do you have any abdominal pain?: No Are you experiencing loss of taste or smell?: No Other Medical History Have you received the Pneumonia Vaccine: No Review of Systems Review of Systems Review of systems (narrative): Negative *Cardiovascular Comments: Negative *Gastrointestinal Comments: Negative *Genitourinary Comments: Negative *Musculoskeletal Comments: Negative *Neurologic Comments: Negative Meds Home Medications and Allergies Home Medications ?Medication ?Instructions ?Recorded ?Confirmed ?Type trazodone 50 mg tablet 50 mg PO DAILY 90 days #90 tabs 08/25/23 01/22/25 Rx lisinopril 20 See Rx Instructions .Route 06/05/24 01/22/25 Rx mg-hydrochlorothiazide 12.5 mg .COMPLEX #90 tabs tablet pravastatin 10 mg tablet See Rx Instructions .Route 06/11/24 01/22/25 Rx .COMPLEX #90 tabs famotidine 40 mg tablet 40 mg PO HS #30 tabs 10/29/24 01/22/25 Rx omeprazole 40 mg capsule,delayed 40 mg PO DAILY #30 caps 10/29/24 01/22/25 Rx release levothyroxine 200 mcg tablet 200 mcg PO DAILY 12/03/24 01/22/25 History sertraline 100 mg tablet 150 mg PO DAILY 12/03/24 01/22/25 History ascorbic acid (vitamin C) 500 mg 500 mg PO DAILY 12/09/24 01/22/25 History capsule coenzyme Q10 100 mg capsule 100 mg PO DAILY 12/09/24 01/22/25 History (CoQ-10) cyanocobalamin (vitamin B-12) 500 500 mcg PO DAILY 12/09/24 01/22/25 History mcg tablet (Vitamin B-12) multivitamin (Multiple Vitamins 1 tab PO DAILY 12/09/24 01/22/25 History tablet) zinc gluconate 50 mg tablet 50 mg PO DAILY 12/09/24 01/22/25 History prednisone 10 mg tablet 10 mg PO DIRECTED 9 days #21 12/17/24 01/22/25 Rx tabs enoxaparin 120 mg/0.8 mL 120 mg (0.8 mL) SQ Q12H Lovenox 01/09/25 01/22/25 Rx subcutaneous syringe (Lovenox) bridge 4 days #6.4 mL metoprolol succinate 100 mg 100 mg PO DAILY #30 tabs 01/09/25 01/22/25 Rx tablet,extended release 24 hr rivaroxaban 20 mg tablet (Xarelto) 20 mg PO DAILY #90 tabs 01/09/25 01/22/25 Rx New Prescriptions to Start Prescriptions: Allergies Allergy/AdvReac Type Severity Reaction Status Date / Time No Known Allergies Allergy Verified 01/22/25 13:56 Exam Data for Last 24 hours Vital signs and Labs for Last 24 Hours: Temp Pulse Resp BP Pulse Ox O2 Del Method 98.0 F 62 18 153/73 H 97 Room Air 01/22/25 13:56 01/22/25 13:56 01/22/25 13:56 01/22/25 13:56 01/22/25 13:56 01/22/25 13:56 I & O for Last 24 hours: Intake & Output 01/19/25 01/20/25 01/21/25 01/22/25 23:59 23:59 23:59 23:59 Weight 248 lb *Routine HEENT Exam Head: Present normocephalic Eye: Present EOMI and PERRL ENT: Present mucous membranes moist *Routine Neck Exam Neck: Present supple *Routine Respiratory Exam Respiratory: Present CTA bilaterally *Routine Cardiovascular Exam Cardiovascular: Present RRR *Routine Abdominal Exam Abdominal: Present soft and normoactive bowel sounds; Absent tenderness *Routine Rectal Exam Rectal:: deferred *Routine Genitalia Exam Genitalia:: deferred *Routine Extremities Exam Extremities: Absent cyanosis, clubbing or edema *Routine Skin Exam Skin: Present warm; Absent rash *Routine Neurological Exam Neurological: Present alert and oriented X3 Assessment and Plan *Assessment and plan (1) Globus sensation: Status: Acute Category: Medical Code(s): R09.A2 - Foreign body sensation, throat (2) Throat clearing: Status: Acute Category: Medical Code(s): R09.89 - Other specified symptoms and signs involving the circulatory and respiratory systems (3) Bloating: Status: Acute Category: Medical Code(s): R14.0 - Abdominal distension (gaseous) Plan A/P: 1. Globus sensation with throat clearing and bloating is the preprocedural diagnosis. The patient will be anesthetized/sedated using MAC sedation. The patient has been seen and examined. Cardiac and lung assessment prior to the examination is stable. Proceed with planned diagnostic EGD
[2025-01-22 14:44] VITALS: O2SAT 98
--- NOTE | 2025-01-22 14:44 | HMH.PROCNOTE ---
[facility] Procedure Note Date: 01/22/25 Time: 14:50 Procedure Note:: Upper Endoscopy Procedure Report: Esophagogastroduodenoscopy with cold biopsies and TTS balloon dilation Endoscopost: Brad Myers II, MD Referring Physician: DEBORA Worrell Date of Procedure: January 22, 2025 Equipment: Olympus GIF 190 standard upper endoscope Sedation: MAC sedation Indications: Mr. Knight is a 59-year-old gentleman with frequent clearance of the throat and globus sensation for well over 6 months. He reports no heartburn or reflux. He does have some bloating but no belching. He did see ENT and had laryngoscopy showing mild inflammation of the larynx consistent with LPR/reflux. He was placed on omeprazole and famotidine without improvement of symptoms. He does have a lot of flatulence/gassiness and bloating. He reports no dysphagia and has no family history of esophageal or gastric cancer. He does feel that this may be related to allergies. Procedure: Prior to the procedure, a history and physical exam was performed, and patient's medications and allergies were reviewed. The risks, benefits and alternatives of the sedation and procedure were discussed with the patient. All questions were answered and informed consent was obtained. The patient was brought to the procedure room. Patient identification and proposed procedure were verified by the physician and the nurse. The patient was placed in a left lateral decubitus position and the scope was passed under direct vision. Throughout the procedure, the patient's blood pressure, pulse, and oxygen saturations were monitored continuously. The upper GI endoscopy was accomplished without difficulty. The patient tolerated the procedure well. Findings: The scope was passed directly into the upper esophagus and advanced to the third portion of the duodenum. The post bulbar duodenum and duodenal bulb were normal with normal mucosa and conniventes. The scope was withdrawn through a normal duodenal bulb and pylorus into the stomach. There was moderate bile reflux with mild linear reactive gastropathy of the antrum. The body and fundus of the stomach were normal. Upon retroflexion there was no hiatal hernia. Biopsies were taken from the antrum. The scope was then withdrawn into the esophagus. There was no evidence of reflux esophagitis or Gómez's. There were no rings, webs, strictures or inlet patch. There were tertiary contractions and evidence of moderate esophageal dysmotility. The entire esophagus was dilated to 60 Israeli/20 mm with a TTS hydrostatic balloon. There was some resistance at the cricopharyngeus/cricopharyngeal spasm. The remainder of the esophageal mucosa was normal. Impression: 1. Cricopharyngeal spasm status post dilation to 20 mm 2. Nonerosive GERD with moderate esophageal dysmotility 3. Bile reflux with mild linear reactive gastropathy Plan: I will follow-up the biopsies. Most of his symptoms of bloating and the bile reflux with cricopharyngeal spasm are related to and driven by lower intestinal gas pressure gradients/high gas pressure buildup resulting in backflow of bile and peptic fluid from the duodenum into the stomach (duodenal reflux). This gas production (carbon dioxide, hydrogen, methane, etc.) from the lower intestinal tract is the byproduct of colonic bacterial fermentation. This colonic fermentation occurs when there is more carbohydrate (dietary starches, sugars and high residue plant fiber) substrate that does not get digested (in the middle or small intestine) or occurs when there is colonic fecal buildup and colonic bacterial overgrowth. This indeed leads to bloating and the gas pressure buildup with gas pressure gradients that do drive backflow. I would recommend a fiber bowel regimen. We will discuss additional treatment options. Globus sensation is a functional esophageal disorder characterized by a sensation of a lump, retained food bolus or mucus, or tightness in the throat even though swallowing can be performed normally, so it is not a true cause of swallowing difficulties, but it can become quite irritating. Occasionally persons can feel or report some very mild chest pressure or rarely chest pain. The lump in the throat sensation that characterizes globus pharyngis is often caused by inflammation of one or more parts of the throat (larynx/hypopharynx-in the lower portion of the throat) due to spasm of the cricopharyngeus (upper esophageal sphincter muscle). This inflammation occurs from increased gas pressure gradients driving gastroesophageal reflux and associated esophageal spasm.
[2025-01-22 14:58] VITALS: BP 150/80; PULSE 72; RESP 18; TEMP 36.9; O2SAT 96
[2025-01-22 15:08] VITALS: BP 143/74; PULSE 65; RESP 18; O2SAT 95
[2025-01-22 15:18] VITALS: BP 149/80; PULSE 68; RESP 18; O2SAT 95
[2025-01-22 15:39] VITALS: BP 153/79; PULSE 65; RESP 18; O2SAT 95
== END 2025-01-22 15:39 | disposition home or self-care (01) ==
PROVIDERS: PCP Nurse Practitioner Family; Visit Provider Internal Medicine Gastroenterology
PROC: 0DJ08ZZ Inspection of Upper Intestinal Tract, Via Natural or Artificial Opening Endoscopic (ICD-10-PCS; CPT 43239; principal; 2025-01-22 15:00)
DX: K31.9 Disease of stomach and duodenum, unspecified (principal); K22.4 Dyskinesia of esophagus; J39.2 Other diseases of pharynx; K21.9 Gastro-esophageal reflux disease without esophagitis; R09.A2 Foreign body sensation, throat; R09.89 Other specified symptoms and signs involving the circulatory and respiratory systems; R14.0 Abdominal distension (gaseous)
CPT/HCPCS: 43239; 43249; C1726; J7120

== ENCOUNTER 2025-05-14 09:36 | Outpatient (CLI) | payer BC, SELFPAY ==
--- OUTSIDE RECORDS SUMMARY | 2025-03-01 17:30 | XMS_ITS ---
Author Organization [facility] Address [address] [place] [address] Care Team Providers Care Tram Inspector Name Role Phone Arlene Bermeo Primary Care Provider ARLENE BERMEO Unavailable Unavaila ble Migration, Provider Unavailable Unavailable [facility]AS[facility]ISIT [facility] Conversion Encounter Medications Medication SIG (Take, Route, Frequency, Duration) Notes Start Date End Date Status Levothyroxine Sodium 200 MCG 1 tab(s) orally once a day for 30 days Active traZODone HCl 50 MG 1 tab orally once a day at bedtime for 90 days 09/09/2024 Active Pravastatin Sodium 10 MG 1 tab(s) orally once a day for 90 days 09/09/2024 Active Metoprolol Succinate ER 50 MG 1 tab(s) orally once a day for 90 days Active Omeprazole 40 MG 1 cap(s) orally once a day for 90 days 09/09/2024 Active Sertraline HCl 150 MG 1 CAP(S) ORALLY ONCE A DAY for 30 DAYS *Please review and pick correct strength-formulatio n from [facility] options. If intended option is not shown, discontinue and re-order from Quick Search* Active Xarelto 20 MG 1 tab(s) orally once a day (in the evening) Active Lisinopril-hydroCHLOR Othiazide 20-12.5 MG 1 tab(s) orally once a day for 90 days 09/05/2024 Active Encounters Encounter Location Date Provider Diagnosis [facility] [address] [place] [address] 03/01/2025 Provider Migration Plan Of Treatment Medication Medication Name Sig Start Date Stop Date Notes Levothyroxine Sodium 200 MCG 1 tab(s) orally once a day for 30 days Sertraline HCl 150 MG 1 CAP(S) ORALLY ONCE A DAY for 30 DAYS *Please review and pick correct strength-formulation from [facility] options. If intended option is not shown, discontinue and re-order from Quick Search* Progress Notes * Jay KNIGHTDOB:1965 (5 9 yo M)Acc No.[id number]:03/01/2025 Patient: Jya REIS Provider: Vivek Merino :1965 A ge:59 Y S ex:Male Date:03/01/2025 Address:[address] [place] [address] [id number] Pcp:Arlene Bermeo Subjective: * Chief Complaints: * 1 . [facility] Conversion Encounter. * Medical History: * Medications: [...] * Treatment: * * Electronic signature of Prov idejalil Migration on 05/14/2025 at 09:40 AM EDT Sign off status: Pending * Provider: Vivek Merino Date: 03/01/2025 Generated for Tonia car/Brian/Tai on: 05/14/2025 09:40 AM EDT
--- OUTSIDE RECORDS SUMMARY | 2025-05-14 09:41 | XMS_ITS | Encounter Summary ---
Author Organization [facility] Address [address] [place] [address] Care Team Providers Care Schedule Clerk Name Role Phone MoreiraShante keenejeff VILLA Primary Care Provider [phone] Reason for Visit * Reason Comments Medication Refill Encounter Details Date Type Department Care Team (Late st Contact Info) Description 06/07/2023 Refill [facility] Endocrinology [address] [place] [phone] Dominique Brunner MD [address] [place] [address] Acquired hypothyroidism Social History Tobacco Use Types Packs/Day Years Used Date Smoking Tobacco: Former Smokeless Tobacco: Never Alcohol Use Standard Drinks/Week Comments Never 0 (1 standard drink = 0.6 oz pur e alcohol) Sex and Gender Information Value Date Recorded Sex Assigned at Not on file Legal Sex Male 2:51 PM [employer] Gender Identity Not on file Sexual Orientation Not on file documented as of this encounter Plan of Treatment Not on file documented as of this encounter Visit Diagnoses Diagnosis Acquired hypothyroidism Unspecified hypothyroidism documented in this encounter Care Teams Schedule Clerk Relationship Specialty Start Date End Date Jewels Moreira APRN [address] [place] [id number] PCP - General Nurse Practitioner 01/02/23 documented as of this encounter
--- OUTSIDE RECORDS SUMMARY | 2025-05-14 09:41 | XMS_ITS | Patient Health Record ---
Author Organization [facility] D [facility]HA Address [address] [place] [address] Care Team Providers Care Extractor Operator Solvent Process Name Role Phone Arlene Bermeo Primary Care Provider ARLENE BERMEO Unavailable Unavaila ble Migration, Provider Unavailable Unavailable Allergies No Known Allergies Results Component Value Reference Range Notes TSH W/REFLEX TO FT4 (45612) Reviewed date:03/05/2025 12:44:56 PM Interpretation: Performing Lab:[facility] [id number], [id number] Harris Bains Notes/Report: NON-FASTING TSH W/REFLEX TO FT4 3.50 0.40-4.50 mIU/L URINALYSIS, COMPLETE (6076) Reviewed date:03/05/2025 12:44:35 PM Interpretation: Performing Lab:[facility] [id number], [id number] Harris Bains Notes/Report: NON-FASTING COLOR YELLOW YELLOW APPEARANCE CLEAR CLEAR SPECIFIC GRAVITY 1.024 1.001-1.035 PH < OR = 5.0 5.0-8.0 GLUCOSE NEGATIVE NEGATIVE BILIRUBIN NEGATIVE NEGATIVE KETONES NEGATIVE NEGATIVE OCCULT BLOOD NEGATIVE NEGATIVE PROTEIN NEGATIVE NEGATIVE NITRITE NEGATIVE NEGATIVE LEUKOCYTE ESTERASE NEGATIVE NEGATIVE WBC NONE SEEN < OR = 5 /HPF RBC NONE SEEN < OR = 2 /HPF SQUAMOUS EPITHELIAL CELLS NONE SEEN < OR = 5 /HPF BACTERIA NONE SEEN NONE SEEN /HPF HYALINE CAST NONE SEEN NONE SEEN /LPF NOTE This urine was analyzed for the presence of WBC, RBC, bacteria, casts, and other formed elements. Only those elements seen were reported. CT Scan : Chest, Lung Cancer Screening Reviewed date:11/28/2024 03:53:35 PM Interpretation: Performing Lab: Notes/Report: M-Thyroid Stimulating Hormon e Reviewed date:11/28/2024 05:16:13 PM Interpretation: Performing Lab: Notes/Report: TSH 41.70 0.465-4.68 uIU/mL M-Prostate Specific Ag Scree n Reviewed date:11/28/2024 05:16:12 PM Interpretation: Performing Lab: Notes/Report: PSASC 3.8 0.0-4.0 ng/ml M-Lipid Panel Reviewed date:11/28/2024 05:16:12 PM Interpretation: Performing Lab: Notes/Report: Patient Fasting? Y TRIG 165 30-150 mg/dl CHOL 159 140-200 mg/dl DLDL 100.81 100-129 mg/dL VLDL 33 0-40 mg/dL HDL 22 40-60 mg/dl CHLHDL 7.2 1-3.5 M-Hemoglobin A1C Reviewed date:12/13/2024 12:15:32 PM Interpretation: Performing Lab: Notes/Report: HGBA1C 5.7 4.0-6.0 % < 6% Non-Diabetic Level < 7% Controlled Diabetic Level > 8% Poorly Controlled Diabetic Level M-Comprehensive Metabolic Pa thu Reviewed date:11/28/2024 05:16:12 PM Interpretation: Performing Lab: Notes/Report: NA 139 136-145 mmol/L K 4.0 3.5-5.1 mmoL/L CL 105 98-107 mmol/L CO2 28 22.0-30.0 mmol/L GAP 10.0 5-15 mEq/L BUN 25 9-20 mg/dl CREATT 1.00 0.66-1.25 mg/dl GFRAA 93 >60 ML/MIN EGFR 76 >60 ml/min GLU 116 74-100 mg/dl CA 9.1 8.4-10.2 mg/dl BILIT 0.7 0.2-1.3 mg/dl AST 44 17-59 U/L ALT 31 12-78 U/L TP 6.7 6.3-8.2 g/dl ALB 4.4 3.5-5.0 g/dl GLOB 2.3 1.3-3.2 g/dL AGRATIO 1.9 1.1-1.8 ALP 40 38-126 U/L M-Urinalysis and Microscopic Reviewed date:11/28/2024 05:16:12 PM Interpretation: Performing Lab: Notes/Report: UCOL YELLOW Yellow UAPP CLEAR Clear UPH 6.0 5.0-8.5 USG >= 1.030 1.005-1.030 UPRO Negative Negative UGLU Negative Negative UKET Negative Negative UBLD Negative Negative UNIT Negative Negative UBIL Negative Negative UURO 0.2 0.2 EU/dl ULEU Negative Negative UMICU URINE MICROSCOPIC MICROSCOPIC URBC None 0-3 #/hpf UWBC 3-5 0-3 #/hpf USQEPI Occasional 0-5 #/hpf UBACT None NONE /lpf M-Complete Blood Count Auto Diff Reviewed date:11/28/2024 05:16:12 PM Interpretation: Performing Lab: Notes/Report: WBC 6.6 4.8-10.8 K/mm3 RBC 5.18 4.60-6.20 M/mm3 HGB 14.9 14.1-18.0 g/dL HCT 43.2 42.0-52.0 % MCV 83.4 80-94 fl MCH 28.8 27.0-31.2 pg MCHC 34.5 31.8-35.4 g/dL RDW 12.8 11.5-17.5 % PLT 238 142-424 K/mm3 MPV 8.7 7.4-10.4 fl NE% 63.2 37.0-80.0 % LY% 26.4 10-50 % MO% 7.0 1.7-9.3 % EO% 2.6 0.1-12.0 % BA% 0.5 0.1-2.0 % NE# 4.2 1.8-7.8 K/mm3 LY# 1.7 0.7-4.5 K/mm3 MO# 0.5 0.1-1.0 K/mm3 EO# 0.2 0.0-0.4 K/mm3 BA# 0.0 0-0.2 K/mm3 X ray : Spines, Thoracic Spi ne Reviewed date:12/13/2024 12:15:32 PM Interpretation: Performing Lab: Notes/Report: Urinalysis Reviewed date:03/03/2025 05:30:47 PM Interpretation: Performing Lab: Notes/Report: Color/Clarity anthony Leuk neg Nitrite neg Urobili 0.2 Protein neg pH 5.5 Blood trace-intact Sp. Gr. >=1.030 Ketone neg Bili neg Glucose neg X ray : Spines, Lumbosacral Reviewed date:12/11/2024 09:41:38 PM Interpretation: Performing Lab: Notes/Report: Reason For Referral No Information Medications Medication SIG (Take, Route, Frequency, Duration) Notes Start Date End Date Status Pravastatin Sodium 10 MG 1 tab(s) orally once a day for 90 days Active Sertraline HCl 150 MG 1 CAP(S) ORALLY ON CE A DAY for 30 DAYS Active Metoprolol Succinate ER 50 MG 1 tab(s) orally once a day for 90 days Active Levothyroxine Sodium 200 MCG 1 tab(s) or ally once a day for 30 days Active traZODone HCl 50 MG 1 tab orally once a day at bedtime for 90 days Active Valsartan-hydroCHLOROthiazid e 160-25 MG 1 tablet Orally Once a day Active Xarelto 20 MG 1 tab(s) orally once a day (in the evening) Active Omeprazole 40 MG 1 cap(s) orally once a day for 90 days 09/09/2024 Active Immunizations Vaccine Route Administration Date Status Comme nts FLUZONE 6MO - OLDER IM Intramuscular 11/13/2023 Administer ed Flublok IM Intramuscular 11/05/2024 Administered Social History Tobacco Use: Social History Observation Description Date Details (start date - stop date) Former Smoker NA - 01/31/2025 Tobacco Control (Standard) Question Answer Notes Tobacco use: Former smoker When did you stop smoking? 01/31/2025 How long has it been since you last smoked? 1-3 months Problems Problem Type SNOMED Code ICD Code Onset Dates Problem Status W/U Status Risk Notes Problem 62593409 Essential hypertension (I10) Active confirmed Problem 54387739 Hypothyroidism, unspecified type (E03.9) Active confirmed Problem 41364480 VINH on CPAP (G47.33) Active confirmed Problem 949474371 PAF (paroxysmal atrial fibrillation) (I48.0) Active confirmed Problem 977572420 Mixed dyslipidemia (E78.2) Active confirmed Problem 520864591 Seasonal allergi c rhinitis, unspecified trigger (J30.2) Active confirmed Vital Signs Heart Rate 60 /min 03/03/2025 Temperature 98.2 degrees Fahrenheit 03/03/2025 Blood pressure diastolic 76 mm Hg 03/03/2025 Height 70 in 03/03/2025 Blood pressure systolic 130 mm Hg 03/03/2025 Weight 249.4 lbs 03/03/2025 BMI 35.78 kg/m2 03/03/2025 Encounters Encounter Location Date Provider Diagnosis [facility] [address] [place] [address] 03/01/2025 Provider Migration [facility] [address] [place] [address] 11/05/2024 Arlene Elvie Essential hypertension I10 ; Hypothyroidism, unspecified type E03.9 ; PAF (paroxysmal atrial fibrillation) I48.0 ; VINH on CPAP G47.33 ; Mid back pain on right side M54.9 ; Personal history of tobacco use Z87.891 ; Immunization(s) administered Z23 and Screening PSA (prostate specific antigen) Z12.5 [facility] [address] [facility] [address] [place] [address] 03/03/2025 Arlene Elvie Essential hypertension I10 ; Hypothyroidism, unspecified type E03.9 ; Nocturia R35.1 ; Seasonal allergic rhinitis, unspecified trigger J30.2 and Mid back pain on right side M54.9 [facility] [address] [facility] [address] [place] [address] 09/04/2024 Arlene Elvie [facility] [address] [place] [address] 09/05/2024 Arlene Elvie [facility] [address] [address] 09/09/2024 Arlene Elvie [facility] [address] [place] [address] 09/11/2024 Arlene Elvie [facility] [address] [place] [address] 11/28/2024 Arlene Elvie [facility] [address] [facility] [address] [place] [address] 12/09/2024 Arlene Bermeo Lumbar back pain M54.50 Assessments Encounter Date Diagnosis (ICD Code) Assessment Notes Treatment Notes Treatment Clinical Notes Section Notes 12/09/2024 Lumbar back pain (ICD-10 - M54.50) 03/03/2025 Essential hypertension (ICD-10 - I10) well controlled 03/03/2025 Hypothyroidism, unspecified type (ICD-10 - E03.9) repeat labs as noted 11/05/2024 Essential hypertension (ICD-10 - I10) well controlled 11/05/2024 Hypothyroidism, unspecified type (ICD-10 - E03.9) repeat labs as noted 03/03/2025 Nocturia (ICD-10 - R35.1) may be secondary to higher dose of HCTZ. PSA normal in October and prior TEGAN by urology negative but has been some time ago. UA today with trace blood, will send to lab for microscopic exam. 11/05/2024 PAF (paroxysmal atrial fibrillation) (ICD-10 - I48.0) Continue AC and beta letitia, cardiology FU 03/03/2025 Seasonal allergic rhinitis, unspecified trigger (ICD-10 - J30.2) dexamethasone injection today, also encouraged to start flonase routinely and continue zyrtec 11/05/2024 VINH on CPAP (ICD-10 - G47.33) continue FU with Dr Ruiz, CPAP 11/05/2024 Mid back pain on right side (ICD-10 - M54.9) suspect muscular, imaging/UA as noted, encouraged massage 11/05/2024 Personal history of tobacco use (ICD-10 - Z87.891) encouraged cessation efforts, screening CT chest 03/03/2025 Mid back pain on right side (ICD-10 - M54.9) suspect muscular, imaging and UA in October indicated degenerative changes, neg UA at that time. Declines PT, pain management. Discussed massage, use of OTC topical analgesics, chiropracter 11/05/2024 Immunization(s) administered (ICD-10 - Z23) 11/05/2024 Screening PSA (prostate specific antigen) (ICD-10 - Z12.5) 11/05/2024 Other Plan Of Treatment Pending Test Test Name Order Date M-Complete Blood Count Auto Diff 024 M-Urinalysis and Microscopic 11/05/2024 M-Comprehensive Metabolic Panel 11/05/20 24 M-Hemoglobin A1C 11/28/2024 M-Lipid Panel 11/05/2024 M-Prostate Specific Ag Screen 11/05/2024 M-Thyroid Stimulating Hormone 11/05/2024 Insurance Providers Payer Name Payer Address Payer Phone Subscriber Number Group Number Insured Name Patient Relationship to Insured Coverage Start Date Coverage End Date [facility] [address] [place] [address] [id number] Jay Knight Self - patient is the insured Medications Administered Medication Instructions Date of Administration Dosage Notes Dexamethasone 4mg Injection 03/03/2025 4 mg Medical (General) History Medical History History ICD Code HTN Hyperlipidemia Depression Sleep Apnea - on CPAP Atrial fibrillation, followed by [facility] car diology Tobacco use Surgical History Surgery Date(Month/Year) low back surgery 2005 lt torn meniscus 2019 lt knee partial replacment 2022 Appendectomy 2019 scope on bowels 2021 Hospitalization History Reason Date(Month/Year) Appendectomy 2019
--- OUTSIDE RECORDS SUMMARY | 2025-05-14 09:41 | XMS_ITS | Clinical Summary ---
Author Organization [facility] Address [address] [place] [address] Care Team Providers Care Long Chain Beamer Name Role Phone Jewels Moreira APRN Primary Care Provider Allergies No known active allergies Medications rivaroxaban (XARELTO) 20 mg tablet Take 1 tablet (20 mg total) by mouth in the morning. 2 Active cetirizine (ZyrTEC) 10 MG tablet Cetirizine HCl 10 MG Oral Tablet QTY: 0 tablet Days: 0 Refills: 0 Written: 12/27/22 Patient Instructions: 3 Active lisinopril-hydr oCHLOROthiazide (PRINZIDE,ZESTO RETIC) 20-12.5 mg per tablet Take 1 tablet by mouth in the morning. 3 Active metoprolol succinate (TOPROL-XL) 50 MG 24 hr tablet Take 1 tablet (50 mg total) by mouth in the morning. 3 Active pravastatin (PRAVACHOL) 10 MG tablet Take 1 tablet (10 mg total) by mouth in the morning. 3 Active sertraline (ZOLOFT) 100 MG tablet Take 1 tablet (100 mg total) by mouth in the morning. 3 Active Active Problems Problem Noted Date Diagnosed Date Acquired hypothyroidism 01/02/2023 Arthralgia of knee 04/08/2021 Acute appendicitis 06/10/2020 Acute appendicitis with loca lized peritonitis, without perforation, abscess, or gangrene 06/10/2020 Obesity (BMI 30.0-34.9) 06/10/2020 Dyslipidemia 06/10/2020 Social History Tobacco Use Types Packs/Day Years Used Date Smoking Tobacco: Former Smokeless Tobacco: Never Alcohol Use Standard Drinks/Week Comments Never 0 (1 standard drink = 0.6 oz pur e alcohol) Interpersonal Safety Answer Date Record ed Family or friends hurt you Not on file 12/16 Family or friends insult you Not on file Family or friends threaten you Not on file 0 12/16/2023 Family or friends scream or curse at you Not on file 12/16/2023 Housing Stability Answer Date Recorded Living situation today Not on file Living situation problems Not on file 2023 Food Insecurity Answer Date Recorded Food run out past 12 months Not on file 11/28 Food did not last past 12 months Not on file 12/16/2023 Employment Answer Date Recorded Help finding and keeping a job Not on file 0 12/16/2023 Family and Community Support Answer Nadeem e Recorded Help with Day to Day Activities Not on file 12/16/2023 Feeling Lonely or Isolated Not on file 12/16 Educational Attainment Answer Date Dieudonne rded Speak language other than Irish at home Not on file 12/16/2023 Want help with school or training Not on file 12/16/2023 Depression Answer Date Recorded PHQ-2 Risk Not on file 12/16/2023 Disabilities Answer Date Recorded Difficulty concentrating Not on file 024 Difficulty doing errands alone Not on file 0 12/16/2023 Substance Use Answer Date Recorded Used prescription meds for non-medical reasons N ot on file 12/16/2023 Used illegal drugs past 12 months Not on file 12/16/2023 Sex and Gender Information Value Date Recorded Sex Assigned at Not on file 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 Gender Identity Not on file Sexual Orientation Not on file Last Filed Vital Signs Vital Sign Reading Time Taken Comments Blood Pressure 120/66 05/08/2023 1:08 PM EDT Pulse 76 05/08/2023 1:08 PM EDT Temperature - - Respiratory Rate - - Oxygen Saturation 96% 05/08/2023 1:08 PM EDT Inhaled Oxygen Concentration - - Weight 114.3 kg (252 lb) 05/08/2023 1:08 PM EDT Height 182.9 cm (6') 05/08/2023 1:08 PM EDT Body Mass Index 34.18 05/08/2023 1:08 PM EDT Plan of Treatment Health Maintenance Due Date Last Done Comments CT Colonography 1965 Colonoscopy 1965 Colorectal Cancer Screening 1965 FOBT/FIT 1965 Fit-DNA (Cologuard) 1965 Sigmoidoscopy 1965 Depression Screening (12+) 1977 HIV Screening 1980 Hepatitis C Screening 1983 DTAP/TDAP/TD VACCINES (1 - Tdap) 1984 Lipid Panel 2000 Pneumococcal 50+ years (1 of 1 - PCV) 2015 Shingles Vaccine (Zoster) (1 of 2) 2015 Tobacco Cessation Counseling and Screening (12+) 05/08/2024 05/08/2023 COVID-19 VACCINE ( season) 2024 08/27/2021, 02/25/2021, 02/02/2021 Influenza Vaccine (Season Ended) 2025 Insurance BLUE CROSS/BLUE SHIELD Care Teams Long Chain Beamer Relationship Specialty Start Date End Date Jewels Moreira, DAISY [address] [place] [id number] PCP - General Nurse Practitioner 01/02/23
--- OUTSIDE RECORDS SUMMARY | 2025-05-14 09:41 | XMS_ITS | Referral Summary ---
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 [place] [id number] BLUE CROSS/BLUE SHIELD Care Teams Glass Cleaner Relationship Specialty Start Date End Date Jewels Moreira, RN [facility] [address] [address] PCP - General Nurse Practitioner 01/02/23
--- OUTSIDE RECORDS SUMMARY | 2025-05-14 09:41 | XMS_ITS | Clinical Summary ---
Author Organization [facility] Address [address] [place] [address] Care Team Providers Care Dye House Hand Name Role Phone Unavailable Primary Care Provider Unavailabl e Social History Tobacco Use Types Packs/Day Years Used Date Smoking Tobacco: Never Assessed Sex and Gender Information Value Date Recorded Sex Assigned at Not on file Legal Sex Male 6:41 PM EDT Gender Identity Not on file Sexual Orientation Not on file Plan of Treatment Not on file
[2025-05-14 09:55] LABS: Basophils % 0.7 % (0.1-2.0); Eosinophils # 0.1 Kmm3 (0.0-0.4); Eosinophils % 2.2 % (0.1-12.0); Hematocrit 45.4 % (42.0-52.0); Hemoglobin 14.8 g/dL (14.1-18.0); Immature Granulocytes # 0.01 10^3uL; Immature Granulocytes % 0.2 %; Lymphocytes # 1.7 K/mm3 (0.7-4.5); Lymphocytes % 28.2 % (10-50); Mean Corpuscular HGB Conc 32.6 g/dL (31.8-35.4); Mean Corpuscular Hemoglobin 26.7 pg (27.0-31.2); Mean Corpuscular Volume 81.8 fl (80-94); Mean Platelet Volume 8.6 fl (7.4-10.4); Monocytes # 0.4 K/mm3 (0.1-1.0); Monocytes % 6.5 % (1.7-9.3); Neutrophils # 3.7 K/mm3 (1.8-7.8); Neutrophils % 62.2 % (37.0-80.0); Nucleated Red Blood Cells # 0 10^3/uL; Nucleated Red Blood Cells % 0 %; Platelet Count 251 K/mm3 (142-424); Red Blood Count 5.55 M/mm3 (4.60-6.20); Red Cell Distribution Width 13.3 % (11.5-17.5); Red Cell Distribution Width-SD 39.4 fL
[2025-05-14 10:19] LABS: Albumin Level 4.2 g/dl (3.5-5.0)
[2025-05-14 10:20] LABS: Chloride 106 mmol/L (98-107); Potassium 4.2 mmoL/L (3.5-5.1); Sodium 141 mmol/L (136-145)
[2025-05-14 10:22] LABS: Alanine Aminotransferase 25 U/L (12-78); Anion Gap 7.2 mEq/L (5-15); Aspartate Amino Transferase 34 U/L (17-59); Bilirubin,Unconjugated 0.5 mg/dL (0.0-1.1); Blood Urea Nitrogen 20 mg/dl (9-20); Carbon Dioxide 32 mmol/L (22.0-30.0); Estimated Glomerular Filt Rate 86 ml/min (>60); GFR (African American) 105 ML/MIN (>60)
[2025-05-14 10:23] LABS: Alkaline Phosphatase 44 U/L (38-126); Bilirubin,Direct 0.1 mg/dl (0.0-0.4); Bilirubin,Indirect 0.5 mg/dL (0.0-0.9); Bilirubin,Total 0.6 mg/dl (0.2-1.3); Calcium 8.9 mg/dl (8.4-10.2); Chol/HDL Ratio 6.2 (1-3.5); Cholesterol 149 mg/dl (140-200); Glucose 143 mg/dl (74-100); HDL Cholesterol 24 mg/dl (40-60); Total Protein,Serum 7.1 g/dl (6.3-8.2); Triglycerides 188 mg/dl (30-150); VLDL Cholesterol 38 mg/dL (0-40)
[2025-05-14 10:34] LABS: Direct LDL Cholesterol 80.75 mg/dL (100-129)
[2025-05-14 10:40] LABS: Free T4 (Free Thyroxine) 1.43 ng/dl (0.78-2.19)
[2025-05-14 10:53] LABS: Thyroid Stimulating Hormone 1.14 uIU/mL (0.465-4.68)
== END 2025-05-14 23:59 | disposition home or self-care (01) ==
LOC: LAB 09:37
PROVIDERS: PCP Nurse Practitioner Family; Visit Provider Internal Medicine
DX: E78.5 Hyperlipidemia, unspecified (principal); I10 Essential (primary) hypertension
CPT/HCPCS: 36415; 80048; 80061; 80076; 84439; 84443; 85025

== ENCOUNTER 2025-09-13 19:24 | Emergency (ER) | payer BC, SELFPAY ==
--- NOTE | 2025-09-13 20:05 | HMH.EDGENADL ---
Discharge Plan Disposition Patient Disposition: Home, Self-Care Condition: Good Prescriptions Prescriptions: No Action trazodone 50 mg tablet 50 mg PO DAILY 90 Days Qty: 90 3RF valsartan-hydrochlorothiazide 160-25 mg tablet 1 tab PO DAILY Qty: 30 5RF Xarelto 20 mg tablet 20 mg PO DAILY Qty: 90 3RF Rx Instructions: must administer with evening meal levothyroxine 200 mcg tablet 200 mcg PO DAILY sertraline 100 mg tablet 150 mg PO DAILY zinc gluconate 50 mg tablet 50 mg PO DAILY cyanocobalamin (vitamin B-12) [Vitamin B-12] 500 mcg tablet 500 mcg PO DAILY ascorbic acid (vitamin C) 500 mg capsule 500 mg PO DAILY coenzyme Q10 [CoQ-10] 100 mg capsule 100 mg PO DAILY multivitamin [Multiple Vitamins] Tablet 1 tab PO DAILY cyclobenzaprine 5 mg tablet 5 mg PO TID PRN (Reason: muscle spasm) Qty: 20 0RF pravastatin 10 mg tablet See Rx Instructions .ROUTE .COMPLEX Qty: 90 0RF Dose Instruction: TAKE 1 TABLET BY MOUTH ONCE DAILY Rx Instructions: TAKE 1 TABLET BY MOUTH ONCE DAILY metoprolol succinate 100 mg tablet extended release 24 hr 100 mg PO DAILY Qty: 90 3RF buspirone 5 mg tablet 5 mg PO BID Qty: 60 12RF Rx Instructions: Please take 1 tablet p.o. nightly x 5 to 7 days and then 1 tablet p.o. twice daily thereafter Referrals Follow up/Referrals: Arlene Bermeo APRN [Primary Care Provider, Medical] - See instructions Activity Restrictions/Add. Instructions Additional Instructions/Restrictions: Your workup today shows no emergent causes of your pain. It is possible that you have a muscle strain. You can take Tylenol, ibuprofen, muscle relaxers and lidocaine patches to help with your symptoms. I do encourage you to follow with your primary care physician if your symptoms do not improve. There is no rash today, however this could be evidence of an early shingles infection. If you develop a rash in that area, I encourage you to seek care either by your primary care physician or emergency department for treatment. If you develop any new or worsening symptoms, or if you become concerned for your health for any reason, return to the emergency department for evaluation. Clinical Impressions Clinical Impression: LLQ abdominal pain Instructions Patient Instructions: DI for Acute Abdominal Pain Print Language Print Language: Nigerian Discharge ED Provider: Ernst De La O General Adult HPI <CONRADO Newman - Last Filed: 09/13/25 22:24> General Chief complaint: Abdominal Pain Stated complaint: left sided abdominal pain Time Seen by Provider: 09/13/25 20:00 History of Present Illness HPI narrative: Patient presents with left-sided abdominal pain that started 2 days ago. He reports that the pain has become significantly more intense today. Denies any UTI symptoms. Denies any fever. Denies any nausea vomiting or diarrhea. Denies any history of diverticulitis or ureteral stones. Reports pain is worse with movement. MD complaint: Left mid abdominal pain Onset (ago): day(s) Location: abdomen Radiation: non-radiation Severity: moderate Quality: other (tender) Consistency: intermittent Relieving factors: rest Exacerbating factors: movement Associated symptoms: denies other symptoms Treatments prior to arrival: none Related Data Home Medications ?Medication ?Instructions ?Recorded ?Confirmed levothyroxine 200 mcg tablet 200 mcg PO DAILY 12/03/24 09/13/25 sertraline 100 mg tablet 150 mg PO DAILY 12/03/24 09/13/25 ascorbic acid (vitamin C) 500 mg 500 mg PO DAILY 12/09/24 09/13/25 capsule coenzyme Q10 100 mg capsule 100 mg PO DAILY 12/09/24 09/13/25 (CoQ-10) cyanocobalamin (vitamin B-12) 500 500 mcg PO DAILY 12/09/24 09/13/25 mcg tablet (Vitamin B-12) multivitamin (Multiple Vitamins 1 tab PO DAILY 12/09/24 09/13/25 tablet) zinc gluconate 50 mg tablet 50 mg PO DAILY 12/09/24 09/13/25 Previous Rx's ?Medication ?Instructions ?Recorded trazodone 50 mg tablet 50 mg PO DAILY 90 days #90 tabs 08/25/23 pravastatin 10 mg tablet See Rx Instructions .Route 06/11/24 .COMPLEX #90 tabs rivaroxaban 20 mg tablet (Xarelto) 20 mg PO DAILY #90 tabs 01/09/25 buspirone 5 mg tablet 5 mg PO BID #60 tabs 01/22/25 valsartan 160 1 tab PO DAILY #30 tabs 02/06/25 mg-hydrochlorothiazide 25 mg tablet metoprolol succinate 100 mg 100 mg PO DAILY #90 tabs 08/14/25 tablet,extended release 24 hr cyclobenzaprine 5 mg tablet 5 mg PO TID PRN muscle spasm #20 09/13/25 tabs Allergies Allergy/AdvReac Type Severity Reaction Status Date / Time No Known Allergies Allergy Verified 09/13/25 16:23 PFSH <CONRADO Newman - Last Filed: 09/13/25 22:24> PFS Disclaimer: The information contained in this section may have been updated after the patient was seen, as this information can be updated by other users. Medical History Globus sensation Throat clearing VINH (obstructive sleep apnea) PAF (paroxysmal atrial fibrillation) HLD (hyperlipidemia) HTN (hypertension) Abnormal electrocardiography Palpitations Surgical History History of appendectomy Previous back surgery H/O left knee surgery Family History Other Alcoholism Cancer Diabetes Heart attack Social History Smoking Status: Never smoker alcohol intake: never substance use type: former substance user and marijuana current occupational status: employed Travel in the last 8 weeks?: None household members: spouse housing: house marital status: caffeine: Yes Have you lived/traveled outside [place] in past 30 days?: No Contact w/someone who lives/traveled outside US past 30 days?: No Exposure to someone with infectious disease in past 14 days?: No Do you have a fever (greater than 100.4 F or 38 C)?: No Have you tested positive for COVID-19?: No Exposed to someone with COVID-19 in past 14 days?: No Do you have a sore throat?: No Do you have a cough?: No Do you have any weakness?: No Do you have any diarrhea?: No Are you experiencing any unusual bleeding?: No Do you have any muscle aches/pain?: No Do you have any abdominal pain?: No Are you experiencing loss of taste or smell?: No Other Medical History Have you received the Pneumonia Vaccine: No <CONRADO Newman - Last Filed: 09/13/25 22:24> ROS Obtained: Yes Systems reviewed as appropriate & no additional complaints except as documented Physical Exam <CONRADO Newman - Last Filed: 09/13/25 22:24> General General appearance: alert and in no apparent distress Head Head exam: atraumatic and normocephalic Eye Eye exam: Present normal appearance and EOMI Chest Chest inspection: Present symmetric chest wall rise Respiratory Respiratory exam: Present normal lung sounds bilaterally; Absent wheezes or stridor Cardiovascular Cardiovascular exam: Present regular rate and normal rhythm; Absent systolic murmur Abdominal Exam Abdominal exam: Present soft and tenderness (left lateral mid abdominal tenderness ); Absent distention Extremities Exam Extremities exam: Present full ROM Neurological Exam Neurological exam: Present alert and oriented X3 Psychiatric Psychiatric exam: Present normal affect and normal mood Skin Skin exam: Present warm, dry and intact Medical Decision Making <CONRADO Newman - Last Filed: 09/13/25 22:24> Medical Records Screening: Per USPSTF and CDC recommendations, given the prevalence of disease in our region, it is our hospital?s policy to screen for HIV and viral Hepatitis for all patients aged 18 and over and those with ongoing risk factors. El Inquiry Pt receiving controlled substance: No Vital Signs: 09/13/25 20:07 09/13/25 23:21 Temperature 98.1 F 98 F Temperature Source Oral Oral Pulse Rate 66 Pulse Rate [Left] 61 Respiratory Rate 20 18 Blood Pressure 134/71 Blood Pressure [Left Arm] 134/66 Blood Pressure Mean [Left Arm] 88 Blood Pressure Source Automatic Cuff Blood Pressure Source [Left Arm] Automatic Cuff Blood Pressure Position Sitting Blood Pressure Position [Left Arm] Sitting 02 Sat by Pulse Oximetry 98 Oxygen Delivery Method Room Air Room Air Lab Data Lab Results 09/13/25 20:20: WBC 8.9, RBC 4.86, Hgb 13.9 L, Hct 40.3 L, MCV 82.9, MCH 28.6, MCHC 34.5, RDW 12.7, Plt Count 208, MPV 9.1, Neut % (Auto) 64.9, Lymph % (Auto) 25.4, Hayes % (Auto) 7.3, Eos % (Auto) 1.9, Baso % (Auto) 0.4, Neut # (Auto) 5.8, Lymph # (Auto) 2.3, Hayes # (Auto) 0.7, Eos # (Auto) 0.2, Baso # (Auto) 0.0, Sodium 139, Potassium 3.7, Chloride 102, Carbon Dioxide 28, Anion Gap 12.7, BUN 23 H, Creatinine 0.90, Estimated Creat Clear 140, Estimated GFR 86, Est GFR ( Amer) 104, Glucose 114 H, Calcium 8.4, Total Bilirubin 0.4, AST 29, ALT 25, Alkaline Phosphatase 51, Total Protein 7.3, Albumin 4.1, Globulin 3.2, Albumin/Globulin Ratio 1.3, Lipase 102 09/13/25 22:36: Urine Color Yellow, Urine Appearance Clear, Urine pH 5.5, Ur Specific Rosser 1.015, Urine Protein Negative, Urine Glucose (UA) Negative, Urine Ketones Negative, Urine Blood Negative, Urine Nitrate Negative, Urine Bilirubin Negative, Urine Urobilinogen 0.2, Ur Leukocyte Esterase Negative, Urine RBC None, Urine WBC None, Ur Squamous Epith Cells Occasional, Urine Bacteria None 09/13/25 20:20 09/13/25 20:20 Orders (Tests/Meds): ED MEDICATIONS Discontinued Medications Generic Name Dose Route Start Last Admin Trade Name Freq PRN Reason Stop Dose Admin Sodium Chloride 1,000 mls @ 999 mls/hr 09/13/25 20:10 09/13/25 22:34 Sod Chlor 0.9% 1000ml Bag IV 09/13/25 21:10 Infused .Q1H1M ONE Infusion Iopamidol 75 ml 09/13/25 21:14 09/13/25 21:15 Iopamidol-370 (76%);100ml Bottle IV 09/13/25 21:15 75 ml ONCE ONE Administration Morphine Sulfate 4 mg 09/13/25 20:10 09/13/25 20:26 Morphine 4mg/Ml Syringe IV 09/13/25 20:11 4 mg ONCE ONE Administration Sodium Chloride 10 ml 09/13/25 20:10 Sodium Chloride 0.9% 10ml Flush Syringe IV 10/13/25 20:09 NEEDED PRN Maintain IV Site Sodium Chloride 10 ml 09/13/25 21:14 09/13/25 21:15 Sodium Chloride 0.9% 10ml Syr (Rad Only) IV 10/13/25 21:13 10 ml NEEDED PRN Administration Maintain IV Site ORDERS Category Date Time Status CT abdomen pelvis w con Stat Cat Scan 09/13/25 20:11 Completed CBC w/Auto Diff [Complete Blood Count Auto Diff] Stat Lab 09/13/25 20:20 Completed CMP [Comprehensive Metabolic Panel] Stat Lab 09/13/25 20:20 Completed Lipase Stat Lab 09/13/25 20:20 Completed Urinalysis and Microscopic Stat Lab 09/13/25 22:36 Completed Medical Decision Narrative: In summary patient is a 60-year-old male who presents the emergency department for evaluation of left lateral abdominal pain. Patient is hemodynamically stable upon arrival, afebrile. Point tenderness to the left lateral mid abdomen. Differential diagnosis includes diverticulitis, ureteral stone, musculoskeletal pain. Initial workup will be conducted with hematologic labs, CT abdomen and pelvis, urinalysis. Initial inventions include pain medication. Signed out to Dr. Leonard pending CT and urinalysis. <Ernst De La O MD - Last Filed: 09/15/25 03:18> Vital Signs: 09/13/25 20:07 09/13/25 23:21 Temperature 98.1 F 98 F Temperature Source Oral Oral Pulse Rate 66 Pulse Rate [Left] 61 Respiratory Rate 20 18 Blood Pressure 134/71 Blood Pressure [Left Arm] 134/66 Blood Pressure Mean [Left Arm] 88 Blood Pressure Source Automatic Cuff Blood Pressure Source [Left Arm] Automatic Cuff Blood Pressure Position Sitting Blood Pressure Position [Left Arm] Sitting 02 Sat by Pulse Oximetry 98 Oxygen Delivery Method Room Air Room Air Lab Data Lab Results 09/13/25 20:20: WBC 8.9, RBC 4.86, Hgb 13.9 L, Hct 40.3 L, MCV 82.9, MCH 28.6, MCHC 34.5, RDW 12.7, Plt Count 208, MPV 9.1, Neut % (Auto) 64.9, Lymph % (Auto) 25.4, Hayes % (Auto) 7.3, Eos % (Auto) 1.9, Baso % (Auto) 0.4, Neut # (Auto) 5.8, Lymph # (Auto) 2.3, Hayes # (Auto) 0.7, Eos # (Auto) 0.2, Baso # (Auto) 0.0, Sodium 139, Potassium 3.7, Chloride 102, Carbon Dioxide 28, Anion Gap 12.7, BUN 23 H, Creatinine 0.90, Estimated Creat Clear 140, Estimated GFR 86, Est GFR ( Amer) 104, Glucose 114 H, Calcium 8.4, Total Bilirubin 0.4, AST 29, ALT 25, Alkaline Phosphatase 51, Total Protein 7.3, Albumin 4.1, Globulin 3.2, Albumin/Globulin Ratio 1.3, Lipase 102 09/13/25 22:36: Urine Color Yellow, Urine Appearance Clear, Urine pH 5.5, Ur Specific Rosser 1.015, Urine Protein Negative, Urine Glucose (UA) Negative, Urine Ketones Negative, Urine Blood Negative, Urine Nitrate Negative, Urine Bilirubin Negative, Urine Urobilinogen 0.2, Ur Leukocyte Esterase Negative, Urine RBC None, Urine WBC None, Ur Squamous Epith Cells Occasional, Urine Bacteria None Orders (Tests/Meds): ED MEDICATIONS Discontinued Medications Generic Name Dose Route Start Last Admin Trade Name Freq PRN Reason Stop Dose Admin Sodium Chloride 1,000 mls @ 999 mls/hr 09/13/25 20:10 09/13/25 22:34 Sod Chlor 0.9% 1000ml Bag IV 09/13/25 21:10 Infused .Q1H1M ONE Infusion Iopamidol 75 ml 09/13/25 21:14 09/13/25 21:15 Iopamidol-370 (76%);100ml Bottle IV 09/13/25 21:15 75 ml ONCE ONE Administration Morphine Sulfate 4 mg 09/13/25 20:10 09/13/25 20:26 Morphine 4mg/Ml Syringe IV 09/13/25 20:11 4 mg ONCE ONE Administration Sodium Chloride 10 ml 09/13/25 20:10 Sodium Chloride 0.9% 10ml Flush Syringe IV 10/13/25 20:09 NEEDED PRN Maintain IV Site Sodium Chloride 10 ml 09/13/25 21:14 09/13/25 21:15 Sodium Chloride 0.9% 10ml Syr (Rad Only) IV 10/13/25 21:13 10 ml NEEDED PRN Administration Maintain IV Site ORDERS Category Date Time Status CT abdomen pelvis w con Stat Cat Scan 09/13/25 20:11 Completed CBC w/Auto Diff [Complete Blood Count Auto Diff] Stat Lab 09/13/25 20:20 Completed CMP [Comprehensive Metabolic Panel] Stat Lab 09/13/25 20:20 Completed Lipase Stat Lab 09/13/25 20:20 Completed Urinalysis and Microscopic Stat Lab 09/13/25 22:36 Completed Medical Decision Narrative: In summary patient is a 60-year-old male who presents the emergency department for evaluation of left lateral abdominal pain. Patient is hemodynamically stable upon arrival, afebrile. Point tenderness to the left lateral mid abdomen. Differential diagnosis includes diverticulitis, ureteral stone, musculoskeletal pain. Initial workup will be conducted with hematologic labs, CT abdomen and pelvis, urinalysis. Initial inventions include pain medication. Signed out to Dr. Leonard pending CT and urinalysis. Ernst De La O MD: I was consulted by the ARTURO, and we discussed the complexity of the problems being addressed. I approve the treatment and management plan for this patient's care in the emergency department, thus performing a substantive portion of the medical decision making. Patient's workup thus far is been unremarkable nonactionable. His urinalysis shows no evidence of infection or blood. CT abdomen/pelvis was interpreted by me personally. No acute findings in the abdomen and pelvis. Which is nonspecific bowel gas pattern. There is noted by radiology to be a mild left basilar opacity could be atelectasis versus consolidation, however patient is not having pain in this area and his pain is mostly lower abdominal and he is not having any respiratory symptoms. I do not feel that this represents a pneumonia. On reassessment, patient is resting comfortably. He still has tenderness over this area. I do feel that his pain is likely musculoskeletal in nature and I encouraged him to continue lidocaine patches as well as Tylenol and muscle relaxers. Advise close follow-up with his primary care physician. Return precautions were given. All questions were answered. He demonstrated understanding and was in agreement this plan. He was then discharged from the emergency department in stable condition. Critical Care <CONRADO Newman - Last Filed: 09/13/25 22:24> Critical Care Time Critical Care Time: No
[2025-09-13 20:07] VITALS: BP 134/66; PULSE 61; RESP 20; TEMP 36.7; O2SAT 98; BMI 33.9
--- NOTE | 2025-09-13 20:11 | CT_ITS ---
PROCEDURE INFORMATION: Exam: CT Abdomen And Pelvis With Contrast Exam date and time: 09/13/2025 9:17 PM Age: 60 years old Clinical indication: Abdominal pain; Additional info: Left lateral abd pain TECHNIQUE: Imaging protocol: Computed tomography of the abdomen and pelvis with contrast. Radiation optimization: All CT scans at this facility use at least one of these dose optimization techniques: automated exposure control; mA and/or kV adjustment per patient size (includes targeted exams where dose is matched to clinical indication); or iterative reconstruction. Contrast material: ISOVUE; Contrast volume: 75 ml; Contrast route: IV; COMPARISON: CT LUNG SCREENING 11/25/2024 10:30 AM FINDINGS: Lungs: Probable atelectatic changes. Several areas of probable scarring in the lung parenchyma. Mild left basilar opacity atelectasis versus consolidation. Liver: Hepatic steatosis Gallbladder and biliary ducts: No calcified stones. No ductal dilation. Pancreas: No ductal dilation. No peripancreatic inflammatory changes. Spleen: Calcified granulomas spleen Adrenal glands: No mass. Kidneys and ureters: 1.0 cm low-attenuation lesion in the right kidney. Stomach and bowel: Nonobstructive bowel gas pattern. Appendix: Appendectomy Intraperitoneal space: No evidence of pneumoperitoneum. Vasculature: No abdominal aortic aneurysm. Vascular calcifications Lymph nodes: No lymphadenopathy by size criteria. Urinary bladder: The urinary bladder is not distended and not well evaluated. Reproductive: The prostate is present. Bones/joints: No suspicious osseous lesion. No acute fracture. Soft tissues: Smallfat containing umbilical hernia. Small bilateral fat containing inguinal hernia. IMPRESSION: 1. Mild left basilar opacity atelectasis versus consolidation. Recommend close clinical and imaging follow-up. 2. Nonobstructive bowel gas pattern. COMMENTS: Consistent with the [place] [employer]'s Incidental Findings Committee white paper (J Am Kim Radiol 2018): Any incidental renal lesion less than 1 cm or classified as too small to characterize, or any incidental cystic renal lesion characterized as simple-appearing, is likely benign. No follow-up imaging is recommended for these lesions per consensus recommendations based on imaging criteria.
--- OUTSIDE RECORDS SUMMARY | 2025-09-13 20:15 | XMS_ITS | Clinical Summary ---
Author Organization [employer] ([place], [place], [place], [place]) Address [address] [place] [address] Care Team Providers Care Lan Administrator Name Role Phone Jewels Moreira APRN Primary [...] drink = 0.6 oz pur e alcohol) Food Insecurity Answer Date Recorded Food run [...] Date Dieudonne rded Speak language other than Paraguayan at home Not on file 12/16/2023 Want help with school or training Not on file 12/16/2023 Substance Use Answer Date Recorded Used prescription meds for non-medical reasons N ot on file 12/16/2023 Used illegal drugs past 12 months Not on file 12/16/2023 Sex and Gender Information Value Date Recorded Sex Assigned at Not on file Legal Sex Male 2:51 PM [employer] Gender Identity Not on file Sexual Orientation [...] and Screening (12+) 05/08/2024 05/08/2023 COVID-19 VACCINE (2024- season) 2025 08/27/2021, 02/25/2021, 02/02/2021 Influenza Vaccine (#1) 2025 Insurance [address] [facility] [address] [place] [id number] BLUE CROSS/BLUE SHIELD Care Teams Lan Administrator Relationship Specialty Start Date End Date Jewels Moreira APRN [address] [place] [id number] PCP - General Nurse Practitioner 01/02/23
--- OUTSIDE RECORDS SUMMARY | 2025-09-13 20:15 | XMS_ITS | Clinical Summary ---
Author Organization [facility] Address [address] [place] [address] Phone Care Team Providers Care Property Damage Claims Adjustor Name Role Phone Elvie VILLA Arlene Keith Unavailable Annette vailable Elisha Moreira Primary Care Provider [phone] Jarad PUGH, Ap Yeager Unavailable [phone] Reason for Visit and Chief Complaint The Chief Complaint is: Left knee pain Problems Includes: Problems addressed during this encounter and other active Problems All Visits Onset Date Resolved Date Provider Condition S tatus Joint Pain Left Knee 04/08/2021 Ap Montoya Active Last Documented On 1 1:59PM ; [facility] Plan of Treatment Instructions to patient Lose weight Last Documented On 3 3:31PM ; [facility] Assessments Includes: Assessments from this encounter Findings 57 year old male presents today for first post operative appointment status post left partial knee arthroplasty performed on 01/23/2023. He is doing well during the post operative period. He has been working with home health physical therapy and progressing well. He denies any fever or chills. I reviewed the xrays performed today in the office. The implants are in good alignment with no signs of loosening. The incision is well healed with no signs of infection or drainage. The patient can leave the wound uncovered and can begin to wash the wound with light soap and water. I would like for the patient to hold off on submerging the leg into any pools, hot tubs, etc and avoid using creams, ointments, lotions for the next 2 weeks. He will continue to go to therapy. I explained for him to continue to ice and elevate his leg to help with post operative swelling He can gradually begin to increase his activities as tolerated. We will see him back in 6 weeks for reassessment. All questions have been answered today. - Last Documented On 02/08/2023 7:27AM ; [facility] Instructions Includes: Instructions from this encounter Instructions to patient Lose weight Last Documented On 3:31PM ; [facility] Medical Equipment - Implanted Devices Includes: Current Devices No Medical Equipment Recorded Medications Includes: Medications discussed during this encounter and other current Medications Current Medications (continue as prescribed) Coenzyme Q-10 100 MG Oral Capsule 12/27/2022 Provide r: Diagnosis: Last Documented On 3 1:48PM By Brenda Gama ; [facility] Fish Oil + D3 9096-6378 MG-UNIT Oral Capsule Provider: Diagnosis: Last Documented On 3 1:48PM By Brenda Gama ; [facility] Kimpzstasxx-Osdieckir-IXO 375-300-250 MG Oral Tabl et 12/27/2022 Provider: Diagnosis: Last Documented On 3 1:49PM By Brenda Gama ; [facility] Levothyroxine Sodium 50 MCG Oral Capsule 12/27/2022 Provider: Diagnosis: Last Documented On 3 1:49PM By Brenda Gama ; [facility] Lisinopril 20 MG Oral Tablet 12/27/2022 Provider: Diagnosis: Last Documented On 3 1:50PM By Brenda Gama ; [facility] Sertraline HCl 100 MG Oral Tablet 12/27/2022 Provide r: Diagnosis: Last Documented On 3 1:50PM By Brenda Gama ; [facility] Zinc 50 MG Oral Tablet 12/27/2022 Provider: Diagnosis: Last Documented On 3 1:51PM By Brenda Gama ; [facility] B-Complex Oral Tablet 12/27/2022 Provider: Diagnosis: Last Documented On 3 1:48PM By Brenda Gama ; [facility] Cetirizine HCl 10 MG Oral Tablet 12/27/2022 Provider : Diagnosis: Last Documented On 3 1:47PM By Brenda Gama ; [facility] Fosamax Plus D 70-5600 MG-UNIT Oral Tablet 12/27/2022 Provider: Diagnosis: Last Documented On 3 1:46PM By Brenda Gama ; [facility] Xarelto 20 MG Oral Tablet 09/11/2022 Provider: Diagnosis: Last Documented On 2 1:01PM By Kareen Pablo ; [facility] Pravastatin Sodium 10 MG Oral Tablet 08/31/2022 Prov ider: RUBA MOREIRA Diagnosis: Last Documented On 2 1:01PM By Kareen Pablo ; [facility] Metoprolol Succinate ER 50 M G Oral Tablet Extended Release 24 Hour 08/16/2022 Provider: Diagnosis: Last Documented On 2 1:01PM By Kareen Pablo ; [facility] Past Medications on file Meloxicam 15 MG Oral Tablet 01/20/2023 - 02/03/2023 Pr ovider: Paul Love MD Diagnosis: once a day Last Documented On 3 2:24PM By Paul Love ; [facility] Vitamin D3 50 MCG (1999) Oral Tablet 01/20/2023 - 03/21/2023 Provider: Paul Rossi MD Diagnosis: Take 1 tablet by mouth daily Last Documented On 3 2:24PM By Paul Love ; [facility] Ondansetron HCl 4 MG Oral Tablet 01/20/2023 - 01/27/2023 Provider: Paul Rossi MD Diagnosis: 1 po q 6h prn nausea Last Documented On 3 2:24PM By Paul Love ; [facility] Colace 100 MG Oral Capsule 01/20/2023 - 04/20/2023 Pro vider: Paul Love MD Diagnosis: Take 1-2 capsules daily as needed Last Documented On 3 2:24PM By Paul Love ; [facility] oxyCODONE HCl 5 MG Oral Tablet 01/20/2023 - 01/30/2023 Provider: Paul Rossi MD Diagnosis: Take 1 tablet by mouth every 4-6 hrs for moderate pain Last Documented On 3 2:24PM By Paul Love ; [facility] traMADol HCl 50 MG Oral Tablet 01/20/2023 - 01/28/2023 Provider: Paul Rossi MD Diagnosis: 2 tablets every 6 hours for break through pain Last Documented On 3 2:24PM By Paul Love ; [facility] Acetaminophen 500 MG Oral Tablet 01/20/2023 - 02/03/2023 Provider: Paul Rossi MD Diagnosis: Take 2 tablets by mouth every 8 hours Last Documented On 3 2:24PM By Paul Love ; [facility] Cefadroxil 500 MG Oral Capsule 01/20/2023 - 01/23/2023 Provider: Paul Rossi MD Diagnosis: Take 1 tablet by mouth every 12 hours for 3 days Last Documented On 3 2:24PM By Paul Love ; [facility] Xarelto 10 MG Oral Tablet 01/20/2023 - 01/27/2023 Prov ider: Paul Love MD Diagnosis: Once a day for 7 days post-o p. After 7 days resume regular dosage. Last Documented On 3 2:23PM By Paul Love ; [facility] Lisinopril 20 MG Oral Tablet 09/12/2022 - 10/12/2022 P rovider: ALMA GAMBINO MD Diagnosis: Last Documented On 2 1:00PM By Kareen Pablo ; [facility] Sertraline HCl 100 MG Oral Tablet 09/12/2022 - 022 Provider: ALMA GAMBINO MD Diagnosis: Last Documented On 2 1:00PM By Kareen Pablo ; [facility] Levothyroxine Sodium 200 MCG Oral Tablet 09/12/2022 - 10/12/2022 Provider: ALMA GAMBINO MD Diagnosis: Last Documented On 2 1:00PM By Kareen Pablo ; [facility] HYDROcodone-Acetaminophen 5- 325 MG Oral Tablet 07/05/2021 - 07/20/2021 Provider: Ap Abraham MD Diagnosis: 1 po q 4h prn pain Last Documented On 1 9:33AM By Ap Abraham ; [facility] Medications Administered Includes: Administered Medications from this encounter No Administered Medications Recorded Vital Signs Includes: Vital Signs from this encounter Vital Name 02/07/2023 03:50P Height (in) 72 Weight (lb) 250 Body Mass Index 33.9 Body Surface Area 2.3 Note: bb Last Documented: On 02/07/2023 3:51PM ; [facility] Results Includes: Results discussed during this encounter No Results Recorded For Specified Dates History of Present Illness Includes: History of Present Illness from this encounter NICHOLAS Knight is a 57 year old male. - Symptoms catching, giving way better with rest worse standing for long periods of time. - Allergy list reviewed - Problem list reviewed - Medication list reviewed - Previous history of new onset pain 03/10/2022 Work Injury bumped knee - Patient pain level from 1-10: 6 - History of Home Exercise - History of Injections gel Medications used for this condition: 57 year old male presents today for first post operative appointment status post left partial knee arthroplasty performed on 01/23/2023. He is doing well during the post operative period. He has been working with home health physical therapy and progressing well. He denies any fever or chills. The incision is healing well with no signs of infection. Social History Description Last Updated Alcohol use 01/23/2024 Last Documented On 3 3:30PM ; [facility] Tobacco non-user 02/08/2023 Last Documented On 3 7:27AM ; [facility] No recent change in diet 02/08/2023 Last Documented On 3 7:27AM ; [facility] Not a current smoker. 02/08/2023 Last Documented On 3 7:27AM ; [facility] Not using drugs 09/20/2022 Last Documented On 3 3:30PM ; [facility] Caffeine use 05/20/2021 Last Documented On 3 3:30PM ; [facility] Not exercising regularly 05/20/2021 Last Documented On 3 3:30PM ; [facility] Smoking Status Unknown Procedures and Surgical History Includes: Procedures from this encounter Procedures Code Diagnosis Performing Provider Service L ocation Service Date use of tobacco assessment performed 1000F Last Documented On 3 3:31PM ; [facility] Surgical History Last Updated History of appendectomy 06/28/2022 Last Documented On 3 3:30PM ; [facility] History of back surgery 06/28/2022 Last Documented On 3 3:30PM ; [facility] Medical History Includes: Medical History addressed during this encounter Description Last Updated Past Surgical History: appendectomy 08/28 Last Documented On 3 3:30PM ; [facility] Recent immunization for flu 08/27/2022 1 Last Documented On 3 3:30PM ; [facility] No recent immunization for pneumococcal pneumonia 09/20/2022 Last Documented On 3 3:30PM ; [facility] History of History of Heart Attack / Str mary 09/12/2022 Last Documented On 3 3:30PM ; [facility] History of Hypertension 06/28/2022 Last Documented On 3 3:30PM ; [facility] History of Irregular Heartbeat 2 Last Documented On 3 3:30PM ; [facility] History of Sleep Apnea 06/28/2022 Last Documented On 3 3:30PM ; [facility] History of Thyroid Disease 06/28/2022 Last Documented On 3 3:30PM ; [facility] Use of CPAP 06/28/2022 Last Documented On 3 3:30PM ; [facility] History of depression 05/20/2021 Last Documented On 3 3:30PM ; [facility] Family History Includes: Family History addressed during this encounter Description Last Updated Family history of systemic hypertension father 09/20/2022 Last Documented On 3 3:30PM ; [facility] Review of Systems Includes: Review of Systems from this encounter Systemic: Not feeling tired, no recent weight loss, and no recent weight gain. Head: No headache and no sinus pain. Eyes: No vision problems, no Cataracts, no Glasses/Contacts, and no Glaucoma. Otolaryngeal: No hearing loss and no tinnitus. Cardiovascular: No chest pain or discomfort, no palpitations, no Hypertension, and no High Cholesterol. Pulmonary: No daytime asthma symptoms and no chronic cough. No wheezing. Gastrointestinal: No heartburn and no abdominal pain. No Indigestion, no Acid Reflux, no Peptic Ulcer, no GI Stomach Bleed, and no Ulcers. Endocrine: No hot flashes, no muscle weakness, no Diabetes, no Hypothyroid, and no Hyperthyroid. Hematologic: No easy bleeding, no tendency for easy bruising, and no Anemia. Musculoskeletal: No Arthritis and no lower back pain. No soft tissue swelling and no localized joint pain. Neurological: No dizziness, no convulsions, and no numbness. Psychological: No anxiety, no emotional lability, no depression, and no insomnia. Not crying for no reason. Skin: No dry skin. No Ulcers, no Scars, and no rash. Allergic and Immunologic: No complaint of seasonal allergic reaction. Mental Status Includes: Mental Status from this encounter Description No anxiety Functional Status Includes: Functional Status from this encounter No Functional Status Recorded Physical Exam Includes: Physical Exam from this encounter Allergies Includes: Active Allergies No Known Allergies Encounters Encounter Provider Location Date Check-In Time Check- Out Time Diagnosis Post Op Paul Love MD [facility] 3 3:29PM 4:15PM Insurance Includes: Active Insurance Policies Plan Name Member ID Group # Subscriber Relationship Effect shiv Dates 1 - [employer] [id number] Jay Back Self 03/10/2021 - Unknown 2 - [employer] [id number] Jay Back Self 021 - Unknown 3 - [employer] [id number] Jay Back Self 2021 - Unknown 4 - [employer] [id number] Jay Back Self 11/23/2022 - Unknown Clinical Notes Includes: Clinical Notes from this encounter * Progress note Date Encounter Last Documented by 02/07/2023 Post Op Last documented on 02/08/2023; 7:27 AM, Paul Love MD; [facility] Active Problems & Conditions - Joint Pain in the Left Knee Chief Complaint The Chief Complaint is: Left knee pain. Referred Here Referred by. History of Present Illness Jay Knight is a 57 year old male. - Symptoms catching, giving way better with rest worse standing for long periods of time. - Allergy list reviewed - Problem list reviewed - Medication list reviewed - Previous history of new onset pain 03/10/2022 Work Injury bumped knee - Patient pain level from 1-10: 6 - History of Home Exercise - History of Injections gel Medications used for this condition: 57 year old male presents today for first post operative appointment status post left partial knee arthroplasty performed on 01/23/2023. He is doing well during the post operative period. He has been working with home health physical therapy and progressing well. He denies any fever or chills. The incision is healing well with no signs of infection. Current Medication - B-Complex Oral Tablet take as directed 0 days, 0 refills - Cetirizine HCl 10 MG Oral Tablet take as directed 0 days, 0 refills - Coenzyme Q-10 100 MG Oral Capsule take as directed 0 days, 0 refills - Colace 100 MG Oral Capsule Take 1-2 capsules daily as needed, 30 days, 2 refills - [facility] So[facility] 375-300-250 MG Oral Tablet take as directed 0 days, 0 refills - Fish Oil + D3 8721-9530 MG-UNIT Oral Capsule take as directed 0 days, 0 refills - Fosamax Plus D 70-5600 MG-UNIT Oral Tablet take as directed 0 days, 0 refills - Levothyroxine Sodium 50 MCG Oral Capsule take as directed 0 days, 0 refills - Lisinopril 20 MG Oral Tablet take as directed 0 days, 0 refills - Metoprolol Succinate ER 50 MG Oral Tablet Extended Release 24 Hour use as directed 30 days, 0 refills - Pravastatin Sodium 10 MG Oral Tablet use as directed 30 days, 0 refills - Sertraline HCl 100 MG Oral Tablet take as directed 0 days, 0 refills - Vitamin D3 50 MCG (1999 [place]) Oral Tablet Take 1 tablet by mouth daily, 60 days, 0 refills - Xarelto 20 MG Oral Tablet use as directed 30 days, 0 refills - Zinc 50 MG Oral Tablet take as directed 0 days, 0 refills Past Medical/Surgical History Reported: Use of CPAP. Immunization History: Recent immunization for flu 08/27/2022. No recent immunization for pneumococcal pneumonia. Diagnoses: Irregular Heartbeat Sleep Apnea Thyroid Disease Hypertension History of Heart Attack / Stroke. Depression Surgical: - Appendectomy - Past Surgical History: appendectomy - Back surgery Social History Not a current smoker. Current diet: No recent change in diet. Caffeine use: Caffeine use. Tobacco use: Tobacco non-user. Alcohol: Alcohol use. Drug Use: Not using drugs. Habits: Not exercising regularly. Allergies - No Known Allergies Family History Systemic hypertension father Review Of Systems Systemic: Not feeling tired, no recent weight loss, and no recent weight gain. Head: No headache and no sinus pain. Eyes: No vision problems, no Cataracts, no Glasses/Contacts, and no Glaucoma. Otolaryngeal: No hearing loss and no tinnitus. Cardiovascular: No chest pain or discomfort, no palpitations, no Hypertension, and no High Cholesterol. Pulmonary: No daytime asthma symptoms and no chronic cough. No wheezing. Gastrointestinal: No heartburn and no abdominal pain. No Indigestion, no Acid Reflux, no Peptic Ulcer, no GI Stomach Bleed, and no Ulcers. Endocrine: No hot flashes, no muscle weakness, no Diabetes, no Hypothyroid, and no Hyperthyroid. Hematologic: No easy bleeding, no tendency for easy bruising, and no Anemia. Musculoskeletal: No Arthritis and no lower back pain. No soft tissue swelling and no localized joint pain. Neurological: No dizziness, no convulsions, and no numbness. Psychological: No anxiety, no emotional lability, no depression, and no insomnia. Not crying for no reason. Skin: No dry skin. No Ulcers, no Scars, and no rash. Allergic and Immunologic: No complaint of seasonal allergic reaction. Physical Findings - Vitals taken 02/07/2023 03:50 pm bb Height 72 in Weight 250 lbs Body Mass Index 33.9 kg/m2 Body Surface Area 2.3 m2 Standard Measurements: - Patient was overweight. Left lower extremity: Incisions well-healed there is no signs of erythema and induration or infection range of motion is from 0-90- Ligamentously stable throughout range of motion Patient has 5 out of 5 motor strength in tib ant and gastroc sensory is intact to SPN TPN and tibial nerves a 2+ dorsalis pedis pulse No signs of DVT Tests XR knee (Left): X-rays performed today 3 views of the knee: Implants appear in overall good alignment and position no signs of loosening and no signs of osteolysis no other bony or osseous abnormality Assessment 57 year old male presents today for first post operative appointment status post left partial knee arthroplasty performed on 01/23/2023. He is doing well during the post operative period. He has been working with home health physical therapy and progressing well. He denies any fever or chills. I reviewed the xrays performed today in the office. The implants are in good alignment with no signs of loosening. The incision is well healed with no signs of infection or drainage. The patient can leave the wound uncovered and can begin to wash the wound with light soap and water. I would like for the patient to hold off on submerging the leg into any pools, hot tubs, etc and avoid using creams, ointments, lotions for the next 2 weeks. He will continue to go to therapy. I explained for him to continue to ice and elevate his leg to help with post operative swelling He can gradually begin to increase his activities as tolerated. We will see him back in 6 weeks for reassessment. All questions have been answered today. Counseling/Education - Lose weight Notes This dictation was done with voice recognition software and may contain errors and omissions. transcribed by Desmond Luciano Practice Management Use of tobacco assessment performed. Care Team - ALMA GAMBINO MD - BREAD WRAPPER OPERATOR Health Reminders - Assess BMI satisfied 02/07/2023. - Assess Tobacco Use satisfied 02/08/2023. - Follow Up Plan BMI Management satisfied 02/07/2023.
--- OUTSIDE RECORDS SUMMARY | 2025-09-13 20:15 | XMS_ITS | Clinical Summary ---
Author Organization [facility] Address [address] [place] [address] Care Team Providers Care Import Export Manager Name Role Phone Odin Vergara MD Primary Care Provider + Allergies No known active allergies Medications lisinopril (PRINIVIL,ZESTRIL ) 20 MG tablet Take 20 mg by mouth Daily. Active sertraline (ZOLOFT) 100 MG tablet Take 150 mg by mouth Daily. Active levothyroxine (SYNTHROID, LEVOTHROID) 200 MCG tablet Take 200 mcg by mouth Daily. Active oxyCODONE-acetami nophen (PERCOCET) 5-325 MG per tabletIndications :Acute appendicitis, unspecified acute appendicitis type Take 2 tablets by mouth Every 4 (Four) Hours As Needed for Severe Pain . 17 tablet 0 Active docusate sodium (COLACE) 100 MG capsule Take 1 capsule by mouth 2 (Two) Times a Day. 20 capsule 0 Active amoxicillin-clavu lanate (Augmentin) 500-125 MG per tablet Take 1 tablet by mouth 3 (Three) Times a Day. 15 tablet 0 Active metroNIDAZOLE (Flagyl) 500 MG tablet Take 1 tablet by mouth 3 (Three) Times a Day. 15 tablet 0 Active pravastatin (PRAVACHOL) 10 MG tablet TAKE 1 TABLET BY MOUTH ONCE DAILY 30 tablet 1 2 Active Active Problems Problem Noted Date Diagnosed Date Acute appendicitis with loca lized peritonitis, without perforation, abscess, or gangrene 06/10/2020 Obesity (BMI 30.0-34.9) 06/10/2020 Dyslipidemia 06/10/2020 Acute appendicitis 06/10/2020 Social History Tobacco Use Types Packs/Day Years Used Date Smoking Tobacco: Never Smokeless Tobacco: Never Abuse Screen Answer Date Recorded Unsafe at Home or Work/School Not on file Feels Threatened by Someone? Not on file 10/2023 Does Anyone Keep You from Co ntacting Others or Doint Things Outside the Home? Not on file 09/07/2023 Physical Sign of Abuse Present Not on file 1 Housing Stability Answer Date Recorded Current Living Arrangements Not on file 08/27 Potentially Unsafe Housing Conditions Not on jaya e 09/07/2023 Family and Community Support Answer Nadeem e Recorded Help with Day-to-Day Activities Not on file 09/07/2023 Lonely or Isolated Not on file 09/07/2023 Employment Answer Date Recorded Do you want help finding or keeping work or a man b? Not on file 09/07/2023 Disabilities Answer Date Recorded Concentrating, Remembering, or Making Decisions Difficulty Not on file 09/07/2023 Doing Errands Independently Difficulty Not on fi le 09/07/2023 Education Answer Date Recorded Help with school or training? Not on file Preferred Language Not on file 09/07/2023 Sex and Gender Information Value Date Recorded Sex Assigned at Not on file Legal Sex Male 12:20 PM EDT Gender Identity Not on file Sexual Orientation Not on file Last Filed Vital Signs Vital Sign Reading Time Taken Comments Blood Pressure 150/76 2020 7:33 AM EDT Pulse 87 2020 7:33 AM EDT Temperature 37.1 C (98.7 F) 2020 7:33 AM EDT Respiratory Rate 16 2020 7:33 AM EDT Oxygen Saturation 96% 2020 7:33 AM EDT Inhaled Oxygen Concentration - - Weight 119 kg (263 lb 6.4 oz) 06/10/2020 7:58 PM EDT Height 182.9 cm (6' 0.01 ) 06/10/2020 7:58 PM ED T Body Mass Index 35.72 06/10/2020 7:58 PM EDT Plan of Treatment Health Maintenance Due Date Last Done Comments TDAP/TD VACCINES (1 - Tdap) 1984 COLOGUARD 2010 COLON CANCER SCREENING 5 YEAR SIGMOIDOSCOPY 2010 COLONOSCOPY 2010 COL[address]ECTAL CANCER SCREENING 2010 CT COLONOGRAPHY 2010 FECAL OCCULT BLOOD TEST 2010 FIT Testing (1 year) 2010 Pneumococcal Vaccine 50+ (1 of 1 - PCV) 2015 ZOSTER VACCINE (1 of 2) 2015 ANNUAL PHYSICAL 02/25/2022 HEPATITIS C SCREENING 02/25/2022 INFLUENZA VACCINE 06/27/2025 Medical Devices Implanted Type Area Power Washer Device Identifier Shelf Expiration Date Model / Serial / Lot Reload Stplr [place] Flex Gst Stnd 60 Wht - [id number] Implanted:Qty : 1 on 06/10/2020 by Kumar Savage MD at [facility] Implant N/A: Abdomen [employer] 11/26/2022 [id number] / / [id number] Reload [place] Flex Gst Reg 3.6mm Alfred - [id number] Implanted:Qty : 1 on 06/10/2020 by Kumar Savage MD at [facility] Implant N/A: Abdomen [employer] 02/24/2023 [id number] / / [id number] Insurance 2009 [facility] [id number] [facility] PPO Member Subscriber Plan / Payer (Ef fective 2014-Present) Name:Jay Knight Jr. Relation to Subscriber:Self Name:Jay Knight Jr. Payer ID:[id number] (NAIC) Type:Not on file Address: [facility] [id number] [place] [id number] Advance Directives * CPR (Attempt to Resuscitate) (Latest Code Status on File) Date Activated Date Inactivated Comments 06/10/2020 7:46 PM 2020 1:16 PM Question Answer Comments Code Status (Patient has no pulse and is not breathing): CPR (Attempt to Resuscitate) Medical Interventions (Patie nt has pulse or is breathing): Full Level Of Support Discussed With: Patient Care Teams Import Export Manager Relationship Specialty Start Date End Date Odin Vergara MD PCP - General Family Medicine 06/10/20
--- OUTSIDE RECORDS SUMMARY | 2025-09-13 20:15 | XMS_ITS | Clinical Summary ---
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 Role Phone Elvie DAISY Arlene Keith Unavailable Annette vailable Elisha Moreira Primary Care Provider [phone] Jarad PUGH, Ap Yeager Unavailable [phone] Reason for Visit and Chief Complaint The Chief Complaint is: Left knee pain Problems Includes: Problems addressed during this encounter and other active Problems All Visits Onset Date Resolved Date Provider Condition S tatus Joint Pain Left Knee 04/08/2021 pA Montoya Active Last Documented On 1 1:59PM ; [facility] Plan of Treatment Instructions to patient Lose weight Last Documented On 4 12:54PM ; [facility] Assessments Includes: Assessments from this encounter Findings - Overweight - Last Documented On 01/23/2024 1:48PM ; [facility] 58 year old male presents 1-year status post left partial knee arthroplasty performed on 01/23/2023. He is doing well and is pleased with the outcome of his surgery. He has returned to work and his daily activities without much issue. I have no restrictions for him. He will follow up with us at his 5-year post-op, sooner if needed. Reinforced dental antibiotic prophylaxis. All questions have been answered. - Last Documented On 01/23/2024 1:48PM ; [facility], [facility] Instructions Includes: Instructions from this encounter Instructions to patient Lose weight Last Documented On 4 12:54PM ; [facility] Medical Equipment - Implanted Devices Includes: Current Devices No Medical Equipment Recorded Medications Includes: Medications discussed during this encounter and other current Medications Current Medications (continue as prescribed) Coenzyme Q-10 100 MG Oral Capsule 12/27/2022 Provide r: Diagnosis: Last Documented On 3 1:48PM By Brenda Gama ; [facility], [facility] Fish Oil + D3 0376-8416 MG-UNIT Oral Capsule Provider: Diagnosis: Last Documented On 3 1:48PM By Brenda Gama ; [facility], [facility] Mtqqndrnukw-Oyzdcgnyo-DAT 375-300-250 MG Oral Tabl et 12/27/2022 Provider: Diagnosis: Last Documented On 3 1:49PM By Brenda Gama ; [facility], [facility] Levothyroxine Sodium 50 MCG Oral Capsule 12/27/2022 Provider: Diagnosis: Last Documented On 3 1:49PM By Brenda Gama ; [facility], [facility] Lisinopril 20 MG Oral Tablet 12/27/2022 Provider: Diagnosis: Last Documented On 3 1:50PM By Brenda Gama ; [facility], [facility] Sertraline HCl 100 MG Oral Tablet 12/27/2022 Provide r: Diagnosis: Last Documented On 3 1:50PM By Brenda Gama ; [facility], [facility] Zinc 50 MG Oral Tablet 12/27/2022 Provider: Diagnosis: Last Documented On 3 1:51PM By Brenda Gama ; [facility], [facility] B-Complex Oral Tablet 12/27/2022 Provider: Diagnosis: Last Documented On 3 1:48PM By Brenda Gama ; [facility], [facility] Cetirizine HCl 10 MG Oral Tablet 12/27/2022 Provider : Diagnosis: Last Documented On 3 1:47PM By Brenda Gama ; [facility], [facility] Fosamax Plus D 70-5600 MG-UNIT Oral Tablet 12/27/2022 Provider: Diagnosis: Last Documented On 3 1:46PM By Brenda Gama ; [facility], [facility] Xarelto 20 MG Oral Tablet 09/11/2022 Provider: Diagnosis: Last Documented On 2 1:01PM By Kareen Pablo ; [facility], [facility] Pravastatin Sodium 10 MG Oral Tablet 08/31/2022 Prov ider: RUBAEKLLIE MOREIRA Diagnosis: Last Documented On 2 1:01PM By Kareen Pablo ; [facility], [facility] Metoprolol Succinate ER 50 M G Oral Tablet Extended Release 24 Hour 08/16/2022 Provider: Diagnosis: Last Documented On 2 1:01PM By Kareen Pablo ; [facility], [facility] Past Medications on file Meloxicam 15 MG Oral Tablet 01/20/2023 - 02/03/2023 Pr ovider: Paul Love MD Diagnosis: once a day Last Documented On 3 2:24PM By Paul Love ; [facility], [facility] Vitamin D3 50 MCG (1999 UT) Oral Tablet 01/20/2023 - 03/21/2023 Provider: Paul Rossi MD Diagnosis: Take 1 tablet by mouth daily Last Documented On 3 2:24PM By Paul Love ; [facility], [facility] Ondansetron HCl 4 MG Oral Tablet 01/20/2023 - 01/27/2023 Provider: Paul Rossi MD Diagnosis: 1 po q 6h prn nausea Last Documented On 3 2:24PM By Paul Love ; [facility], [facility] Colace 100 MG Oral Capsule 01/20/2023 - 04/20/2023 Pro vider: Paul Love MD Diagnosis: Take 1-2 capsules daily as needed Last Documented On 3 2:24PM By Paul Love ; [facility], [facility] oxyCODONE HCl 5 MG Oral Tablet 01/20/2023 - 01/30/2023 Provider: Paul Rossi MD Diagnosis: Take 1 tablet by mouth every 4-6 hrs for moderate pain Last Documented On 3 2:24PM By Paul Love ; [facility], [facility] traMADol HCl 50 MG Oral Tablet 01/20/2023 - 01/28/2023 Provider: Paul Rossi MD Diagnosis: 2 tablets every 6 hours for break through pain Last Documented On 3 2:24PM By Paul Love ; [facility], [facility] Acetaminophen 500 MG Oral Tablet 01/20/2023 - 02/03/2023 Provider: Paul Rossi MD Diagnosis: Take 2 tablets by mouth every 8 hours Last Documented On 3 2:24PM By Paul Love ; [facility], [facility] Cefadroxil 500 MG Oral Capsule 01/20/2023 - 01/23/2023 Provider: Paul Rossi MD Diagnosis: Take 1 tablet by mouth every 12 hours for 3 days Last Documented On 3 2:24PM By Paul Love ; [facility], [facility] Xarelto 10 MG Oral Tablet 01/20/2023 - 01/27/2023 Prov ider: Paul Love MD Diagnosis: Once a day for 7 days post-o p. After 7 days resume regular dosage. Last Documented On 3 2:23PM By Paul Love ; [facility], [facility] Lisinopril 20 MG Oral Tablet 09/12/2022 - 10/12/2022 Vivek sahnider: ALMA GAMBINO MD Diagnosis: Last Documented On 2 1:00PM By Kareen Pablo ; [facility], [facility] Sertraline HCl 100 MG Oral Tablet 09/12/2022 - 022 Provider: ALMA GAMBINO MD Diagnosis: Last Documented On 2 1:00PM By Kareen Pablo ; [facility], [facility] Levothyroxine Sodium 200 MCG Oral Tablet 09/12/2022 - 10/12/2022 Provider: ALMA GAMBINO MD Diagnosis: Last Documented On 2 1:00PM By Kareen Pablo ; [facility], [facility] HYDROcodone-Acetaminophen 5- 325 MG Oral Tablet 07/05/2021 - 07/20/2021 Provider: Ap Abraham MD Diagnosis: 1 po q 4h prn pain Last Documented On 1 9:33AM By Ap Abraham ; [facility], [facility] Medications Administered Includes: Administered Medications from this encounter No Administered Medications Recorded Vital Signs Includes: Vital Signs from this encounter Vital Name 01/23/2024 01:10P Height (in) 72 Weight (lb) 245 Body Mass Index 33.2 Body Surface Area 2.3 Note: ct Last Documented: On 01/23/2024 1:11PM ; [facility], [facility] Results Includes: Results discussed during this encounter No Results Recorded For Specified Dates History of Present Illness Includes: History of Present Illness from this encounter NICHOLAS Knight is a 58 year old male. - Symptoms catching, giving way better with rest worse standing for long periods of time . - Allergy list reviewed - Problem list reviewed - Medication list reviewed - Previous history of new onset pain 03/10/2022 Work Injury bumped knee - Patient pain level from 1-10: was 0 0 - History of Home Exercise - History of Injections gel Medications used for this condition: 58 year old male presents today for 1-year follow-up status post left partial knee arthroplasty performed on 01/23/2023. He is doing well and feels better than he did prior to surgery. He denies any fever or chills. Social History Description Last Updated Alcohol use 01/23/2024 Last Documented On 4 1:48PM ; [facility], [facility] Tobacco non-user 03/21/2023 Last Documented On 4 12:54PM ; [facility], [facility] No recent change in diet 02/08/2023 Last Documented On 4 12:54PM ; [facility], [facility] Not a current smoker. 02/08/2023 Last Documented On 4 12:54PM ; [facility], [facility] Not using drugs 09/20/2022 Last Documented On 4 12:54PM ; [facility], [facility] Not a smoker 06/28/2022 Last Documented On 4 12:54PM ; [facility], [facility] Non-smoker 05/20/2021 Last Documented On 4 12:54PM ; [facility], [facility] Caffeine use 05/20/2021 Last Documented On 4 12:54PM ; [facility], [facility] No recent change in diet 05/20/2021 Last Documented On 4 12:54PM ; [facility], [facility] Not a current smoker. 05/20/2021 Last Documented On 4 12:54PM ; [facility], [facility] Not exercising regularly 05/20/2021 Last Documented On 4 12:54PM ; [facility], [facility] Smoking Status Unknown Procedures and Surgical History Includes: Procedures from this encounter Procedures Code Diagnosis Performing Provider Service L ocation Service Date use of tobacco assessment performed 1000F Last Documented On 4 12:54PM ; [facility], [facility] review of medications documented 1160F Last Documented On 4 1:11PM ; [facility] Surgical History Last Updated History of appendectomy 06/28/2022 Last Documented On 4 12:54PM ; [facility], [facility] History of back surgery 06/28/2022 Last Documented On 4 12:54PM ; [facility] Medical History Includes: Medical History addressed during this encounter Description Last Updated Past Surgical History: appendectomy 08/28 Last Documented On 4 12:54PM ; [facility] Recent immunization for flu 08/27/2022 1 Last Documented On 4 12:54PM ; [facility] No recent immunization for pneumococcal pneumonia 09/20/2022 Last Documented On 4 12:54PM ; [facility] History of History of Heart Attack / Str mary 09/12/2022 Last Documented On 4 12:54PM ; [facility], [facility] History of Hypertension 06/28/2022 Last Documented On 4 12:54PM ; [facility] History of Irregular Heartbeat 2 Last Documented On 4 12:54PM ; [facility] History of Sleep Apnea 06/28/2022 Last Documented On 4 12:54PM ; [facility], [facility] History of Thyroid Disease 06/28/2022 Last Documented On 4 12:54PM ; [facility], [facility] Use of CPAP 06/28/2022 Last Documented On 4 12:54PM ; [facility] History of depression 05/20/2021 Last Documented On 4 12:54PM ; [facility] Sleep Apnea 05/20/2021 Last Documented On 4 12:54PM ; [facility] Family History Includes: Family History addressed during this encounter Description Last Updated Family history of systemic hypertension father 09/20/2022 Last Documented On 4 12:54PM ; [facility] No significant family history 05/20/2021 Last Documented On 4 12:54PM ; [facility] Review of Systems Includes: Review [...] Encounters Encounter Provider Location Date Check-In Time Check-Out Time Diagnosis WC FOLLOW UP/EST Paul Love MD [facility] 01/23/20 24 12:48PM 1:48PM Overweight Insurance Includes: Active Insurance Policies Plan Name Member ID Group # Subscriber Relationship Effect shiv Dates 1 - [employer] [id number] Jay Back Self 03/10/2021 - Unknown 2 - [employer] [id number] Jay Back Self 021 - Unknown 3 - [employer] [id number] Jay Back Self 2021 - Unknown 4 - [employer] [id number] Jay Back Self 11/23/2022 - Unknown Clinical Notes Includes: Clinical Notes from this encounter * Progress note Date Encounter Last Documented by 01/23/2024 WC FOLLOW UP/EST Last documented on 01/23/2024; 1:48 PM, Paul Love MD; [facility], [facility] Active Problems & Conditions - Joint Pain in the Left Knee Chief Complaint The Chief Complaint is: Left knee pain. Referred Here Referred by self. History of Present Illness Jay Knight is a 58 year old male. - Symptoms catching, giving way better with rest worse standing for long periods of time . - Allergy list reviewed - Problem list reviewed - Medication list reviewed - Previous history of new onset pain 03/10/2022 Work Injury bumped knee - Patient pain level from 1-10: was 0 0 - History of Home Exercise - History of Injections gel Medications used for this condition: 58 year old male presents today for 1-year follow-up status post left partial knee arthroplasty performed on 01/23/2023. He is doing well and feels better than he did prior to surgery. He denies any fever or chills. Current Medication - B-Complex Oral Tablet take as directed 0 days, 0 refills - Cetirizine HCl 10 MG Oral Tablet take as directed 0 days, 0 refills - Coenzyme Q-10 100 MG Oral Capsule take as directed 0 days, 0 refills - [facility] Otssadmmbfq-Ymgquuvry-ZTU 375-300-250 MG Oral Tablet take as directed 0 days, 0 refills - Fish Oil + D3 0266-3151 MG-UNIT Oral Capsule take as directed 0 [...] as directed 0 days, 0 refills - Xarelto 20 MG Oral Tablet use as directed 30 days, 0 refills - Zinc 50 MG Oral Tablet take as directed 0 days, 0 refills Past Medical/Surgical History Reported: Use of CPAP. Immunization History: Recent immunization for flu 08/27/2022. No recent immunization for pneumococcal pneumonia. Diagnoses: Irregular Heartbeat. Sleep Apnea. Sleep Apnea Thyroid Disease Hypertension History of Heart Attack / Stroke. Depression Surgical: - Appendectomy - Past Surgical History: appendectomy - Back surgery Social History Not a current smoker. Not a current smoker. Current diet: No recent change in diet. No recent change in diet. Caffeine use: Caffeine use. Tobacco use: Tobacco non-user. Not a smoker. Non-smoker. Alcohol: Alcohol use. Drug Use: Not using drugs. Habits: Not exercising regularly. Allergies - No Known Allergies Family History No significant family history Systemic hypertension father Review Of Systems Systemic: [...] allergic reaction. Physical Findings - Vitals taken 01/23/2024 01:[address] Height 72 in Weight 245 lbs Body Mass Index 33.2 kg/m2 Body Surface Area 2.3 m2 Standard Measurements: - Patient was overweight. Left lower extremity: Incisions well-healed there is no signs of erythema and induration or infection range of motion is from 0-120- Ligamentously stable throughout range of motion Patient has 5 out of 5 motor strength in tib ant and gastroc sensory is intact to SPN TPN and tibial nerves a 2+ dorsalis pedis pulse No signs of DVT Tests X-rays performed today 3 views of the left knee: Implants appear in overall good alignment and position no signs of loosening and no signs of osteolysis no other bony or osseous abnormality Assessment - Overweight 58 year old male presents 1-year status post left partial knee arthroplasty performed on 01/23/2023. He is doing well and is pleased with the outcome of his surgery. He has returned to work and his daily activities without much issue. I have no restrictions for him. He will follow up with us at his 5-year post-op, sooner if needed. Reinforced dental antibiotic prophylaxis. All questions have been answered. Counseling/Education - Lose weight Notes This dictation was done with voice recognition software and may contain errors and omissions. Transcribed by Agustin Zaldivar Practice Management Use of tobacco assessment performed Review of medications documented. Care Team - Arlene Bermeo APRN Health Reminders - Assess BMI satisfied 01/23/2024. - Assess Tobacco Use satisfied 01/23/2024. - Follow Up Plan BMI Management satisfied 01/23/2024.
--- OUTSIDE RECORDS SUMMARY | 2025-09-13 20:15 | XMS_ITS ---
Care Plan - [facility] Created on: September 13, 2025 Jay Knight : 1965 Sex: Male Author Organization [facility] Address [address] [place] [address] Phone Care Team Providers Care Otolaryngology Physician Name Role Phone Arlene Bermeo APRN Unavailable Annette vailable Elisha Moreira Primary Care Provider [phone] Ap Abraham MD Unavailable [phone]
--- OUTSIDE RECORDS SUMMARY | 2025-09-13 20:15 | XMS_ITS ---
Author Organization [facility] , [facility] Address [address] [place] [address] Phone Care Team Providers Care Entry Level Buyer Name Role Phone Maday Bermeo APRNah Inna Unavailable Annette vailable Elisha Moreira Primary Care Provider [phone] Ap Abraham MD Unavailable [phone] Reason for Referral Date Encounter Description Provider Reason for Referral 09/19/22 NEW PATIENT Andrea Kelsey MD Referral T o Physician 02/24/22 WC FOLLOW UP/EST Ap Abraham MD Referra l To Physician - See pcp for BP 01/18/22 WC Orthovisc Benjamin Gill PA-C Referral To Physician - See pcp for BP 01/11/22 Lazarusc Benjamin Gill PA-C Referral To Physician - See pcp for BP 01/04/22 WC Lazarusc Benjamin Gill PA-C Referral To Physician - See pcp for BP 12/28/21 Orthodonitac Benjamin Gill PA-C Referral To Physician - See pcp for BP 09/30/21 WC POST OP Ap Abraham MD Referral To Physician - see pcp for bp 08/19/21 WC POST OP Ap Abraham MD Referral To Physician - see pcp for bp 05/20/21 WC FOLLOW UP/EST Ap Abraham MD Referra l To Physician - see pcp for bp 04/08/21 WC NEW PATIENT Ap Abraham MD Referral To Physician - see pcp for bp Problems Includes: Active, inactive, and resolved Problems All Visits Onset Date Resolved Date Provider Condition S tatus Joint Pain Left Knee 04/08/2021 Ap Montoya Active Last Documented On 05/13/202 1 1:59PM ; [facility] Plan of Treatment Pending Tests Order Diagnosis Results Due Ordering P rovider Radiology - MRI MRI L Knee 10/14/21 Ap Abraham MD Last Documented On 1 2:12PM ; [facility] Radiology - MRI MRI L Knee Unilateral prima ry osteoarthritis, left knee 11/09/22 Juliana Lam PA-C Last Documented On 2 11:24AM ; [facility] Instructions to patient Lose weight Last Documented On 4 12:54PM ; [facility] Lose weight Last Documented On 3 3:20PM ; [facility] Lose weight Last Documented On 3 3:31PM ; [facility] Lose weight Last Documented On 3 3:34PM ; [facility] Intervention and counseling on cessation of tobacco use Last Documented On 2 9:45AM ; [facility] Lose weight Last Documented On 2 9:45AM ; [facility] Lose weight Last Documented On 2 12:56PM ; [facility] No intervention and counseli ng on cessation of tobacco use Last Documented On 2 3:22PM ; [facility] Lose weight Last Documented On 2 3:12PM ; [facility] Lose weight Last Documented On 2 9:59AM ; [facility] Lose weight Last Documented On 2 2:23PM ; [facility] Lose weight Last Documented On 2 2:18PM ; [facility] Lose weight Last Documented On 2 2:10PM ; [facility] Lose weight Last Documented On 2 2:27PM ; [facility] Lose weight Last Documented On 2 2:18PM ; [facility] Lose weight Last Documented On 2 2:48PM ; [facility] Lose weight Last Documented On 1 1:36PM ; [facility] Lose weight Last Documented On 1 1:38PM ; [facility] Lose weight Last Documented On 1 1:21PM ; [facility] Lose weight Last Documented On 1 2:48PM ; [facility] Lose weight Last Documented On 1 2:00PM ; [facility] Assessments Includes: Assessments for all patient encounters Findings Encounter Date Overweight WC FOLLOW UP/EST with Paul Love MD 01/23/2024 Last Documented On 4 1:48PM ; [facility] Instructions Includes: Instructions for all patient encounters Instructions to patient Lose weight Last Documented On 4 12:54PM ; [facility] Lose weight Last Documented On 3 3:20PM ; [facility] Lose weight Last Documented On 3 3:31PM ; [facility] Lose weight Last Documented On 3 3:34PM ; [facility] Intervention and counseling on cessation of tobacco use Last Documented On 2 9:45AM ; [facility] Lose weight Last Documented On 2 9:45AM ; [facility] Lose weight Last Documented On 2 12:56PM ; [facility] No intervention and counseli ng on cessation of tobacco use Last Documented On 2 3:22PM ; [facility] Lose weight Last Documented On 2 3:12PM ; [facility] Lose weight Last Documented On 2 9:59AM ; [facility] Lose weight Last Documented On 2 2:23PM ; [facility] Lose weight Last Documented On 2 2:18PM ; [facility] Lose weight Last Documented On 2 2:10PM ; [facility] Lose weight Last Documented On 2 2:27PM ; [facility] Lose weight Last Documented On 2 2:18PM ; [facility] Lose weight Last Documented On 2 2:48PM ; [facility] Lose weight Last Documented On 1 1:36PM ; [facility] Lose weight Last Documented On 1 1:38PM ; [facility] Lose weight Last Documented On 1 1:21PM ; [facility] Lose weight Last Documented On 1 2:48PM ; [facility] Lose weight Last Documented On 1 2:00PM ; [facility], [facility] Medical Equipment - Implanted Devices Includes: Current and historical Devices No Medical Equipment Recorded Medications Includes: Current and historical Medications Current Medications (continue as prescribed) Coenzyme Q-10 100 MG Oral Capsule 12/27/2022 Provide r: Diagnosis: Last Documented On 3 1:48PM By Brenda Gama ; [facility], [facility] Fish Oil + D3 3784-9771 MG-UNIT Oral Capsule 3 Provider: Diagnosis: Last Documented On 3 1:48PM By Brenda Gama ; [facility], [facility] Yhyhzyvzuju-Tszosdvlc-VDZ 375-300-250 MG Oral Tabl et 12/27/2022 Provider: Diagnosis: Last Documented On 3 1:49PM By Brenda Gama ; [facility], [facility] Levothyroxine Sodium 50 MCG Oral Capsule 12/27/2022 Provider: Diagnosis: Last Documented On 3 1:49PM By Brenda Gama ; [facility], [facility] Lisinopril 20 MG Oral Tablet 12/27/2022 Provider: Diagnosis: Last Documented On 3 1:50PM By Brenda Gama ; [facility], [facility] Sertraline HCl 100 MG Oral Tablet 12/27/2022 Provide r: Diagnosis: Last Documented On 3 1:50PM By Brenda Gama ; [facility], [facility] Zinc 50 MG Oral Tablet 12/27/2022 Provider: Diagnosis: Last Documented On 3 1:51PM By Brenda Gama ; [facility], [facility] B-Complex Oral Tablet 12/27/2022 Provider: Diagnosis: Last Documented On 3 1:48PM By Brenda Gama ; [facility], [facility] Cetirizine HCl 10 MG Oral Tablet 12/27/2022 Provider : Diagnosis: Last Documented On 3 1:47PM By Brenda Gama ; [facility], [facility] Fosamax Plus D 70-5600 MG-UNIT Oral Tablet 12/27/2022 Provider: Diagnosis: Last Documented On 3 1:46PM By Brenda Gama ; [facility], [facility] Xarelto 20 MG Oral Tablet 09/11/2022 Provider: Diagnosis: Last Documented On 2 1:01PM By Kareen Pablo ; [facility], [facility] Pravastatin Sodium 10 MG Oral Tablet 08/31/2022 Prov ider: RUBA MOREIRA Diagnosis: Last Documented On 2 1:01PM By Kareen Pablo ; [facility], [facility] Metoprolol Succinate ER 50 M G Oral Tablet Extended Release 24 Hour 08/16/2022 Provider: Diagnosis: Last Documented On 2 1:01PM By Kareen Pablo ; [facility], [facility] Past Medications on file Meloxicam 15 MG Oral Tablet 01/20/2023 - 02/03/2023 Pr ovider: Paul Love MD Diagnosis: once a day Last Documented On 3 2:24PM By Paul Love ; [facility], [facility] Vitamin D3 50 MCG (1999 [place]) Oral Tablet 01/20/2023 - 03/21/2023 Provider: Paul Rossi MD Diagnosis: Take 1 tablet by mouth daily Last Documented On 3 2:24PM By Paul Love ; [facility], [facility] Ondansetron HCl 4 MG Oral Tablet 01/20/2023 - 01/27/2023 Provider: Paul Rossi MD Diagnosis: 1 po q 6h prn nausea Last Documented On 3 2:24PM By Paul Love ; [facility], [facility] Colace 100 MG Oral Capsule 01/20/2023 - 04/20/2023 Pro vider: Paul Love MD Diagnosis: Take 1-2 capsules daily as needed Last Documented On 3 2:24PM By Paul Love ; [facility] oxyCODONE HCl 5 MG Oral Tablet 01/20/2023 - 01/30/2023 Provider: Paul Rossi MD Diagnosis: Take 1 tablet by mouth every 4-6 hrs for moderate pain Last Documented On 3 2:24PM By Paul Love ; [facility] traMADol HCl 50 MG Oral Tablet 01/20/2023 - 01/28/2023 Provider: Paul Rossi MD Diagnosis: 2 tablets every 6 hours for break through pain Last Documented On 3 2:24PM By Paul Love ; [facility] Acetaminophen 500 MG Oral Tablet 01/20/2023 - 02/03/2023 Provider: Paul Rossi MD Diagnosis: Take 2 tablets by mouth every 8 hours Last Documented On 3 2:24PM By Paul Love ; [facility] Cefadroxil 500 MG Oral Capsule 01/20/2023 - 01/23/2023 Provider: Paul Rossi MD Diagnosis: Take 1 tablet by mouth every 12 hours for 3 days Last Documented On 3 2:24PM By Paul Love ; [facility] Xarelto 10 MG Oral Tablet 01/20/2023 - 01/27/2023 Prov ider: Paul Love MD Diagnosis: Once a day for 7 days post-o p. After 7 days resume regular dosage. Last Documented On 3 2:23PM By Paul Love ; [facility] Lisinopril 20 MG Oral Tablet 09/12/2022 - 10/12/2022 P rovider: ALMA GAMBINO MD Diagnosis: Last Documented On 2 1:00PM By Kareen Pablo ; [facility] Sertraline HCl 100 MG Oral Tablet 09/12/2022 - 022 Provider: ALMA GAMBINO MD Diagnosis: Last Documented On 2 1:00PM By Kareen Pablo ; [facility], [facility] Levothyroxine Sodium 200 MCG Oral Tablet 09/12/2022 - 10/12/2022 Provider: ALMA GAMBINO MD Diagnosis: Last Documented On 2 1:00PM By Kareen Pablo ; [facility], [facility] HYDROcodone-Acetaminophen 5- 325 MG Oral Tablet 07/05/2021 - 07/20/2021 Provider: Ap Abraham MD Diagnosis: 1 po q 4h prn pain Last Documented On 1 9:33AM By Ap Abraham ; [facility], [facility] Aspirin Childrens 81 MG Oral Tablet Chewable 1 - 04/07/2022 Provider: Diagnosis: Last Documented On 2 10:13AM By Leigh Archibald ; [facility], [facility] Sertraline HCl 100 MG Oral Tablet 03/24/2021 - 022 Provider: ALMA GAMBINO MD Diagnosis: Last Documented On 2 1:00PM By Kareen Pablo ; [facility], [facility] Levothyroxine Sodium 200 MCG Oral Tablet 03/19/2021 - 09/12/2022 Provider: ALMA GAMBINO MD Diagnosis: Last Documented On 2 1:00PM By Kareen Pablo ; [facility], [facility] Pravastatin Sodium 10 MG Ora l Tablet 03/19/2021 - 04/07/2022 Provider: ALMA GAMBINO MD Diagnosis: Last Documented On 2 10:13AM By Leigh Archibald ; [facility], [facility] Lisinopril 20 MG Oral Tablet 03/11/2021 - 09/12/2022 Vivek arndt: ALMA GAMBINO MD Diagnosis: Last Documented On 2 1:00PM By Kareen Pablo ; [facility], [facility] Medications Administered Includes: Administered Medications in patient's chart No Administered Medications Recorded Results Includes: Results from 09/13/2024 through 09/13/2025 No Results Recorded For Specified Dates History of Present Illness History of Present Illness not supported for this document type No History of Present Illness Recorded Social History Description Last Updated Alcohol use 01/23/2024 Last Documented On 4 1:48PM ; [facility] Tobacco non-user 03/21/2023 Last Documented On 3 3:43PM ; [facility] No recent change in diet 02/08/2023 Last Documented On 3 7:27AM ; [facility] Not a current smoker. 02/08/2023 Last Documented On 3 7:27AM ; [facility] Not using drugs 09/20/2022 Last Documented On 2 9:39AM ; [facility] Tobacco use 09/19/2022 Last Documented On 2 9:39AM ; [facility] Not a smoker 06/28/2022 Last Documented On 2 3:58PM ; [facility] Non-smoker 05/20/2021 Last Documented On 1 3:57PM ; [facility] Caffeine use 05/20/2021 Last Documented On 1 3:57PM ; [facility] No recent change in diet 05/20/2021 Last Documented On 1 3:57PM ; [facility] Not a current smoker. 05/20/2021 Last Documented On 1 3:57PM ; [facility] Not exercising regularly 05/20/2021 Last Documented On 1 3:57PM ; [facility] Smoking Status Unknown Procedures and Surgical History Surgical History Last Updated History of appendectomy 06/28/2022 Last Documented On 2 3:58PM ; [facility] History of back surgery 06/28/2022 Last Documented On 2 3:58PM ; [facility] Medical History Includes: Medical History in patient's chart Description Last Updated Past Surgical History: appendectomy 08/28 Last Documented On 2 9:39AM ; [facility] Recent immunization for flu 08/27/2022 1 Last Documented On 2 9:39AM ; [facility] No recent immunization for pneumococcal pneumonia 09/20/2022 Last Documented On 2 9:39AM ; [facility] History of History of Heart Attack / Str mary 09/12/2022 Last Documented On 2 8:15AM ; [facility] History of Hypertension 06/28/2022 Last Documented On 2 3:58PM ; [facility] History of Irregular Heartbeat 2 Last Documented On 2 3:58PM ; [facility] History of Sleep Apnea 06/28/2022 Last Documented On 2 3:58PM ; [facility], [facility] History of Thyroid Disease 06/28/2022 Last Documented On 2 3:58PM ; [facility], [facility] Use of CPAP 06/28/2022 Last Documented On 2 3:58PM ; [facility] History of depression 05/20/2021 Last Documented On 1 3:57PM ; [facility] Sleep Apnea 05/20/2021 Last Documented On 1 3:57PM ; [facility], [facility] Family History Includes: Family History in patient's chart Description Last Updated Family history of systemic hypertension father 09/20/2022 Last Documented On 2 9:39AM ; [facility], [facility] No significant family history 05/20/2021 Last Documented On 1 3:57PM ; [facility] Review of Systems Review of Systems not supported for this document type No Review of Systems Recorded Mental Status Description No anxiety Functional Status No Functional Status Recorded Physical Exam Physical Exam not supported for this document type No Physical Exam Recorded Immunizations Includes: Immunizations in patient's chart Vaccine Dose # Date Site Reaction(s) Status Source Influenza 1 08/27/2022 Complete (Reported) Patient Last Documented On 2 4:47PM ; [facility] PCV (Pneumovax 23) 1 09/20/2022 Complete (Refused - Patient objection) [facility] Last Documented On 2 4:47PM ; [facility] Td 1 09/20/2022 Complete (Refused - Patient objection) [facility] Last Documented On 2 4:47PM ; [facility] Allergies Includes: Active, inactive, and resolved Allergies No Known Allergies Insurance Includes: Active Insurance Policies Plan Name Member ID Group # Subscriber Relationship Effect shiv Dates 1 - [employer] [id number] Jay Back Self 03/10/2021 - Unknown 2 - [employer] [id number] Jay Back Self 021 - Unknown 3 - [employer] [id number] Jay Back Self 2021 - Unknown 4 - [employer] [id number] Jay Back Self 11/23/2022 - Unknown Clinical Notes Includes: Signed Clinical Notes starting from 11/10/2022 No Clinical Notes Recorded
--- OUTSIDE RECORDS SUMMARY | 2025-09-13 20:16 | XMS_ITS | Clinical Summary ---
Author Organization [email or web address] Address [address] [place] [address] Phone Care Team Providers Care Military Science Teacher Name Role Phone Elvie VILLA Arlene Inna Unavailable Annette vailable Elisha Moreira Primary Care Provider [phone] Jarad PUGH, Ap Yeager Unavailable [phone] Reason for Visit and Chief Complaint [facility] Suit[facility] Problems Includes: Problems addressed during this encounter and other active Problems All Visits Onset Date Resolved Date Provider Condition S tatus Joint Pain Left Knee 04/08/2021 Ap Montoya Active Last Documented On 1 1:59PM ; [facility] Plan of Treatment No Plan of Treatment Recorded Assessments Includes: Assessments from this encounter No Assessments Recorded Medical Equipment - Implanted Devices Includes: Current Devices No Medical Equipment Recorded Medications Includes: Medications discussed during this encounter and other current Medications Current Medications (continue as prescribed) Coenzyme Q-10 100 MG Oral Capsule 12/27/2022 Provide r: Diagnosis: Last Documented On 3 1:48PM By Brenda Gama ; [facility], [facility] Fish Oil + D3 6343-0653 MG-UNIT Oral Capsule 3 Provider: Diagnosis: Last Documented On 3 1:48PM By Brenda Gama ; [facility], [facility] Rflnaofytwz-Fampykiso-NRV 375-300-250 MG Oral Tabl et 12/27/2022 Provider: Diagnosis: Last Documented On 3 1:49PM By Brenda Gama ; [facility], [facility] Levothyroxine Sodium 50 MCG Oral Capsule 12/27/2022 Provider: Diagnosis: Last Documented On 3 1:49PM By Brenda Gama ; [facility] Lisinopril 20 MG Oral Tablet 12/27/2022 Provider: Diagnosis: Last Documented On 3 1:50PM By Brenda Gama ; [facility] Sertraline HCl 100 MG Oral Tablet 12/27/2022 Provide r: Diagnosis: Last Documented On 3 1:50PM By Brenda Gama ; [facility] Zinc 50 MG Oral Tablet 12/27/2022 Provider: Diagnosis: Last Documented On 3 1:51PM By Brenda Gama ; [facility] B-Complex Oral Tablet 12/27/2022 Provider: Diagnosis: Last Documented On 3 1:48PM By Brenda Gama ; [facility] Cetirizine HCl 10 MG Oral Tablet 12/27/2022 Provider : Diagnosis: Last Documented On 3 1:47PM By Brenda Gama ; [facility], [facility] Fosamax Plus D 70-5600 MG-UNIT Oral Tablet 12/27/2022 Provider: Diagnosis: Last Documented On 3 1:46PM By Brenda Gama ; [facility] Xarelto 20 MG Oral Tablet 09/11/2022 Provider: Diagnosis: Last Documented On 2 1:01PM By Kareen Pablo ; [facility] Pravastatin Sodium 10 MG Oral Tablet 08/31/2022 Prov ider: RUBA MOREIRA Diagnosis: Last Documented On 2 1:01PM By Kareen Pablo ; [facility] Metoprolol Succinate ER 50 M G Oral Tablet Extended Release 24 Hour 08/16/2022 Provider: Diagnosis: Last Documented On 2 1:01PM By Kareen Pablo ; [facility] Medications Administered Includes: Administered Medications from this encounter No Administered Medications Recorded Results Includes: Results discussed during this encounter No Results Recorded For Specified Dates History of Present Illness Includes: History of Present Illness from this encounter No History of Present Illness Recorded Social History No Social History Recorded - Smoking Status Unknown Medical History Includes: Medical History addressed during this encounter No Medical History Recorded Family History Includes: Family History addressed during this encounter No Family History Recorded Review of Systems Includes: Review of Systems from this encounter No Review of Systems Recorded Mental Status Includes: Mental Status from this encounter No Mental Status Recorded Functional Status Includes: Functional Status from this encounter No Functional Status Recorded Physical Exam Includes: Physical Exam from this encounter No Physical Exam Recorded Allergies Includes: Active Allergies No Known Allergies Encounters Encounter Provider Location Date Check-In Time Check-Out Time Diagnosis [facility] Outpatient Surgery Suites Paul Love MD Surgery 3 8:45AM 11:59PM Insurance Includes: Active Insurance Policies Plan Name Member ID Group # Subscriber Relationship Effect shiv Dates 1 - [employer] [id number] Jay Back Self 03/10/2021 - Unknown 2 - [employer] [id number] Jay Back Self 021 - Unknown 3 - [employer] [id number] Jay Back Self 2021 - Unknown 4 - [employer] [id number] Jay Back Self 11/23/2022 - Unknown Clinical Notes Includes: Clinical Notes from this encounter No Clinical Notes Recorded
--- OUTSIDE RECORDS SUMMARY | 2025-09-13 20:16 | XMS_ITS | Referral Summary ---
Author Organization [facility] ([place], [place], [place], [place]) Address [address] [place] [address] Care Team Providers Care Consignee Name Role Phone Jewels Moreira DAISY Primary Care Provider Allergies No known active [...] Date Dieudonne rded Speak language other than Bolivian at home Not on file 12/16/2023 Want help with school or training Not on file 12/16/2023 Substance Use Answer Date Recorded Used prescription meds for non-medical reasons N ot on file 12/16/2023 Used illegal drugs past 12 months Not on file 12/16/2023 Sex and Gender Information Value Date Recorded Sex Assigned at Not on file 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
--- OUTSIDE RECORDS SUMMARY | 2025-09-13 20:16 | XMS_ITS | Clinical Summary ---
Author Organization [facility] Address [address] [place] [address] Care Team Providers Care Resort Host Name Role Phone Unavailable Primary Care Provider [...]
--- OUTSIDE RECORDS SUMMARY | 2025-09-13 20:16 | XMS_ITS | Encounter Summary ---
Author Organization [employer] ([place], [place], [place], [place]) Address [address] [place] [address] Care Team Providers Care Manager Meat Name Role Phone HarishFayeJewelstim VILLA Primary Care Provider [phone] Reason for Visit * Reason Comments Medication Refill Encounter Details Date Type Department Care Team (Late st Contact Info) Description 06/07/2023 Refill [facility] Endocrinology [address] [place] [address] [address] Dominique Brunner MD [address] [place] [address] Acquired hypothyroidism Social History Tobacco Use Types Packs/Day Years Used Date Smoking Tobacco: Former Smokeless Tobacco: Never Alcohol Use Standard Drinks/Week Comments Never 0 (1 standard drink = 0.6 oz pur e alcohol) Sex and Gender Information Value Date Recorded Sex Assigned at Not on file Legal Sex Male 2:51 PM [employer] Gender Identity Not on file Sexual Orientation Not on file documented as of this encounter Plan of Treatment Not on file documented as of this encounter Visit Diagnoses Diagnosis Acquired hypothyroidism Unspecified hypothyroidism documented in this encounter Care Teams Manager Meat Relationship Specialty Start Date End Date Jewels Moreira APRN [address] [place] [id number] PCP - General Nurse Practitioner 01/02/23 documented as of this encounter
--- OUTSIDE RECORDS SUMMARY | 2025-09-13 20:16 | XMS_ITS | Clinical Summary ---
Author Organization [facility] , [facility] Address [address] [place] [address] Phone Care Team Providers Care Pediatrics Physician Name Role Phone Elvie VILLA Arlene Inna Unavailable Annette vaElisha Lanier Primary Care Provider [phone] Jarad PUGH, Ap Yeager Unavailable [phone] Reason for Visit and Chief Complaint [Patient Encounter] Problems Includes: Problems addressed during this encounter and other active Problems All Visits Onset Date Resolved Date Provider Condition S tatus Joint Pain Left Knee 04/08/2021 Ap Montoya Active Last Documented On 1 1:59PM ; [facility] Plan of Treatment Pending Tests Order Diagnosis Results Due Ordering P rovider Therapy - Physical Therapy Knee 12/09/22 Paul Love MD Last Documented On 3 1:53PM ; [facility] Therapy - Physical Therapy Knee 12/09/22 Paul Love MD Last Documented On 3 1:53PM ; [facility] DME/Casting - Post Operative Knee 3 Paul Love MD Last Documented On 3 1:54PM ; [facility] Assessments Includes: Assessments from this encounter No Assessments Recorded Medical Equipment - Implanted Devices Includes: Current Devices No Medical Equipment Recorded Medications Includes: Medications discussed during this encounter and other current Medications Current Medications (continue as prescribed) Coenzyme Q-10 100 MG Oral Capsule 12/27/2022 Provide r: Diagnosis: Last Documented On 3 1:48PM By Brenda Gama ; [facility] Fish Oil + D3 5229-3032 MG-UNIT Oral Capsule 3 Provider: Diagnosis: Last Documented On 3 1:48PM By Brenda Gama ; [facility] Jjpkepxisuk-Xpdzhixco-TOM 375-300-250 MG Oral Tabl et 12/27/2022 Provider: Diagnosis: Last Documented On 3 1:49PM By Brenda Gama ; [facility] Levothyroxine Sodium 50 MCG Oral Capsule 12/27/2022 Provider: Diagnosis: Last Documented On 3 1:49PM By Brenda Gama ; [facility] Lisinopril 20 MG Oral Tablet 12/27/2022 Provider: Diagnosis: Last Documented On 3 1:50PM By Brenda Gama ; [facility] Sertraline HCl 100 MG Oral Tablet 12/27/2022 Provide r: Diagnosis: Last Documented On 3 1:50PM By Brenda Gama ; [facility] Zinc 50 MG Oral Tablet 12/27/2022 Provider: Diagnosis: Last Documented On 3 1:51PM By Brenda Gama ; [facility] B-Complex Oral Tablet 12/27/2022 Provider: Diagnosis: Last Documented On 3 1:48PM By Brenda Gama ; [facility] Cetirizine HCl 10 MG Oral Tablet 12/27/2022 Provider : Diagnosis: Last Documented On 3 1:47PM By Brenda Gama ; [facility] Fosamax Plus D 70-5600 MG-UNIT Oral Tablet 12/27/2022 Provider: Diagnosis: Last Documented On 3 1:46PM By Brenda Gama ; [facility] Xarelto 20 MG Oral Tablet 09/11/2022 Provider: Diagnosis: Last Documented On 2 1:01PM By Kareen Pablo ; [facility] Pravastatin Sodium 10 MG Oral Tablet 08/31/2022 Prov ider: RUBA FERNANDEZ Diagnosis: Last Documented On 2 1:01PM By Kareen [facility] Metoprolol Succinate ER 50 M G Oral Tablet Extended Release 24 Hour 08/16/2022 Provider: Diagnosis: Last Documented On 2 1:01PM By Kareen [facility] Medications Administered Includes: Administered Medications from [...] Location Date Check-In Time Check-Out Time Diagnosis [Patient Encounter] Paul Love MD 01/23/2023 10:55AM 11:59PM Insurance Includes: Active Insurance Policies Plan Name Member ID Group # Subscriber Relationship Effect shiv Dates 1 - [employer] [id number] Jay Back Self 03/10/2021 - Unknown 2 - [employer] [id number] Jay Back Self 021 - Unknown 3 - [employer] [id number] Jay Back Self 2021 - Unknown 4 - [employer] [id number] Jay Back Self 11/23/2022 - Unknown Clinical Notes Includes: Clinical Notes from this encounter No Clinical Notes Recorded
--- OUTSIDE RECORDS SUMMARY | 2025-09-13 20:16 | XMS_ITS | Clinical Summary ---
Author Organization [facility] , [facility] Address [address] [place] [address] Phone Care Team Providers Care Outreach Worker Name Role Phone Elvie VILLA Arlene Keith Unavailable Annette vailable Elisha Moreira Primary Care Provider [phone] Jarad PUGH, Ap Yeager Unavailable [phone] Reason for Visit and Chief Complaint The Chief Complaint is: Left knee pain Problems Includes: Problems addressed during this encounter and other active Problems All Visits Onset Date Resolved Date Provider Condition S tatus Joint Pain Left Knee 04/08/2021 Ap Montoya Active Last Documented On 1:59PM ; [facility] Plan of Treatment He will continue physical therapy with focus on strengthening and range of motion. We discussed the necessity of antibiotic prophylaxis prior to all future dental cleanings and dental procedures for lifetime. I explained that they need to call the office with a scheduled their next dental appointment, at which time we will send in the first antibiotic prescription, which will be taken orally, 1 hour prior to the dental cleaning or procedure. Patient acknowledged this with full understanding. He will return to work on 04/24/23, and was provided a letter reflective of such. Next follow up appointment will be at the one year post-operative point in time and he will call if he has any questions or concerns in the mean time. - Last Documented On 03/21/2023 3:43PM ; [facility] Pending Tests Order Diagnosis Results Due Ordering P rovider Radiology - MRI MRI L Knee Unilateral prima ry osteoarthritis, left knee 11/09/22 Juliana Lam PA-C Last Documented On 2 11:24AM ; [facility] Instructions to patient Lose weight Last Documented On 3 3:20PM ; [facility], [facility] Assessments Includes: Assessments from this encounter Findings 57-year-old male presents 8 weeks status post a left partial knee arthroplasty on 01/23/23. He continues to do well during the post-operative period of time. Incision site is well healed and without signs of infection. He denies fever and chills. He has been participating in physical therapy with good progress and has been compliant with daily, home based therapy exercises. - Last Documented On 03/21/2023 3:43PM ; [facility], [facility] Instructions Includes: Instructions from this encounter Instructions to patient Lose weight Last Documented On 3 3:20PM ; [facility] Medical Equipment - Implanted Devices Includes: Current Devices No Medical Equipment Recorded Medications Includes: Medications discussed during this encounter and other current Medications Current Medications (continue as prescribed) Coenzyme Q-10 100 MG Oral Capsule 12/27/2022 Provide r: Diagnosis: Last Documented On 3 1:48PM By Brenda Gama ; [facility], [facility] Fish Oil + D3 7613-3447 MG-UNIT Oral Capsule 3 Provider: Diagnosis: Last Documented On 3 1:48PM By Brenda Gama ; [facility], [facility] Ydwwfiuyvro-Kwfqorlap-QVE 375-300-250 MG Oral Tabl et 12/27/2022 Provider: Diagnosis: Last Documented On 3 1:49PM By Brenda Gama ; [facility], [facility] Levothyroxine Sodium 50 MCG Oral Capsule 12/27/2022 Provider: Diagnosis: Last Documented On 3 1:49PM By Brenda Gama ; [facility], [facility] Lisinopril 20 MG Oral Tablet 12/27/2022 Provider: Diagnosis: Last Documented On 3 1:50PM By Brenda Gama ; [facility], [facility] Sertraline HCl 100 MG Oral Tablet 12/27/2022 Provide r: Diagnosis: Last Documented On 3 1:50PM By Brenda Gama ; [facility] Zinc 50 MG Oral Tablet 12/27/2022 Provider: Diagnosis: Last Documented On 3 1:51PM By Brenda Gama ; [facility] B-Complex Oral Tablet 12/27/2022 Provider: Diagnosis: Last Documented On 3 1:48PM By Brenda Gama ; [facility], [facility] Cetirizine HCl 10 MG Oral Tablet 12/27/2022 Provider : Diagnosis: Last Documented On 3 1:47PM By Brenda Gama ; [facility], [facility] Fosamax Plus D 70-5600 MG-UNIT Oral Tablet 12/27/2022 Provider: Diagnosis: Last Documented On 3 1:46PM By Brenda Gama ; [facility], [facility] Xarelto 20 MG Oral Tablet 09/11/2022 Provider: Diagnosis: Last Documented On 2 1:01PM By Kareen Pablo ; [facility], [facility] Pravastatin Sodium 10 MG Oral Tablet 08/31/2022 Prov ider: RUBA MOREIRA Diagnosis: Last Documented On 2 1:01PM By Kareen Pablo ; [facility], [facility] Metoprolol Succinate ER 50 M G Oral Tablet Extended Release 24 Hour 08/16/2022 Provider: Diagnosis: Last Documented On 2 1:01PM By Kareen Pablo ; [facility], [facility] Past Medications on file Meloxicam 15 MG Oral Tablet 01/20/2023 - 02/03/2023 Pr ovider: Paul Love MD Diagnosis: once a day Last Documented On 3 2:24PM By Paul Love ; [facility], [facility] Vitamin D3 50 MCG (1999 [place]) Oral Tablet 01/20/2023 - 03/21/2023 Provider: Paul Rossi MD Diagnosis: Take 1 tablet by mouth daily Last Documented On 3 2:24PM By Paul Love ; [facility], [facility] Ondansetron HCl 4 MG Oral Tablet 01/20/2023 - 01/27/2023 Provider: Paul Rossi MD Diagnosis: 1 po q 6h prn nausea Last Documented On 3 2:24PM By Paul Love ; [facility] Colace 100 MG Oral Capsule 01/20/2023 - 04/20/2023 Pro vider: Paul Love MD Diagnosis: Take 1-2 capsules daily as needed Last Documented On 3 2:24PM By Paul Love ; [facility] oxyCODONE HCl 5 MG Oral Tablet 01/20/2023 - 01/30/2023 Provider: Paul Rossi MD Diagnosis: Take 1 tablet by mouth every 4-6 hrs for moderate pain Last Documented On 3 2:24PM By Paul Love ; [facility] traMADol HCl 50 MG Oral Tablet 01/20/2023 - 01/28/2023 Provider: Paul Rossi MD Diagnosis: 2 tablets every 6 hours for break through pain Last Documented On 3 2:24PM By Paul Love ; [facility] Acetaminophen 500 MG Oral Tablet 01/20/2023 - 02/03/2023 Provider: Paul Rossi MD Diagnosis: Take 2 tablets by mouth every 8 hours Last Documented On 3 2:24PM By Paul Love ; [facility] Cefadroxil 500 MG Oral Capsule 01/20/2023 - 01/23/2023 Provider: Paul Rossi MD Diagnosis: Take 1 tablet by mouth every 12 hours for 3 days Last Documented On 3 2:24PM By Paul Love ; [facility] Xarelto 10 MG Oral Tablet 01/20/2023 - 01/27/2023 Prov ider: Paul Love MD Diagnosis: Once a day for 7 days post-o p. After 7 days resume regular dosage. Last Documented On 3 2:23PM By Paul Love ; [facility] Lisinopril 20 MG Oral Tablet 09/12/2022 - 10/12/2022 P rovider: ALMA GAMBINO MD Diagnosis: Last Documented On 2 1:00PM By Kareen Pablo ; [facility] Sertraline HCl 100 MG Oral Tablet 09/12/2022 - 022 Provider: ALMA GAMBINO MD Diagnosis: Last Documented On 2 1:00PM By Kareen Pablo ; [facility] Levothyroxine Sodium 200 MCG Oral Tablet 09/12/2022 [...] Vital Signs from this encounter Vital Name 03/21/2023 03:32P Height (in) 72 Weight (lb) 250 Body Mass Index 33.9 Body Surface Area 2.3 Note: ck Last Documented: On 03/21/2023 3:32PM ; [facility] Results Includes: Results discussed during this encounter No Results Recorded For Specified Dates History of Present Illness Includes: History of Present Illness from this encounter NICHOLAS Knight is a 57 year old male. - Allergy list reviewed - Problem list reviewed - Medication list reviewed 57-year-old male presents for second postoperative follow-up appointment status post a left partial knee arthroplasty on 01/23/23. He continues to do well during the post-operative period of time. Incision site is well healed and without signs of infection. He denies fever and chills. He has been participating in physical therapy with good progress and has been compliant with daily, home based therapy exercises. Social History Description Last Updated Alcohol use 01/23/2024 Last Documented On 3 3:20PM ; [facility] Tobacco non-user 03/21/2023 Last Documented On 3 3:43PM ; [facility] No recent change in diet 02/08/2023 Last Documented On 3 3:20PM ; [facility] Not a current smoker. 02/08/2023 Last Documented On 3 3:20PM ; [facility] Not using drugs 09/20/2022 Last Documented On 3 3:20PM ; [facility] Not a smoker 06/28/2022 Last Documented On 3 3:20PM ; [facility] Non-smoker 05/20/2021 Last Documented On 3 3:20PM ; [facility], [facility] Caffeine use 05/20/2021 Last Documented On 3 3:20PM ; [facility], [facility] No recent change in diet 05/20/2021 Last Documented On 3 3:20PM ; [facility] Not a current smoker. 05/20/2021 Last Documented On 3 3:20PM ; [facility] Not exercising regularly 05/20/2021 Last Documented On 3 3:20PM ; [facility] Smoking Status Unknown Procedures and Surgical History Includes: Procedures from this encounter Procedures Code Diagnosis Performing Provider Service L ocation Service Date use of tobacco assessment performed 1000F Last Documented On 3 3:20PM ; [facility] Surgical History Last Updated History of appendectomy 06/28/2022 Last Documented On 3 3:20PM ; [facility] History of back surgery 06/28/2022 Last Documented On 3 3:20PM ; [facility], [facility] Medical History Includes: Medical History addressed during this encounter Description Last Updated Past Surgical History: appendectomy 08/28 Last Documented On 3 3:20PM ; [facility] Recent immunization for flu 08/27/2022 1 Last Documented On 3 3:20PM ; [facility] No recent immunization for pneumococcal pneumonia 09/20/2022 Last Documented On 3 3:20PM ; [facility] History of History of Heart Attack / Str mary 09/12/2022 Last Documented On 3 3:20PM ; [facility] History of Hypertension 06/28/2022 Last Documented On 3 3:20PM ; [facility], [facility] History of Irregular Heartbeat 2 Last Documented On 3 3:20PM ; [facility], [facility] History of Sleep Apnea 06/28/2022 Last Documented On 3 3:20PM ; [facility], [facility] History of Thyroid Disease 06/28/2022 Last Documented On 3 3:20PM ; [facility], [facility] Use of CPAP 06/28/2022 Last Documented On 3 3:20PM ; [facility], [facility] History of depression 05/20/2021 Last Documented On 3 3:20PM ; [facility], [facility] Sleep Apnea 05/20/2021 Last Documented On 3 3:20PM ; [facility], [facility] Family History Includes: Family History addressed during this encounter Description Last Updated Family history of systemic hypertension father 09/20/2022 Last Documented On 3 3:20PM ; [facility], [facility] No significant family history 05/20/2021 Last Documented On 3 3:20PM ; [facility], [facility] Review of Systems Includes: Review of [...] Location Date Check-In Time Check-Out Time Diagnosis POST OP Juliana Lam PA-C [facility] 3 3:11PM 3:44PM Insurance Includes: Active Insurance Policies Plan Name Member ID Group # Subscriber Relationship Effect shiv Dates 1 - [employer] [id number] Jay Back Self 03/10/2021 - Unknown 2 - [employer] [id number] Jay Back Self 021 - Unknown 3 - [employer] [id number] Jay Back Self 2021 - Unknown 4 - [employer] [id number] Jay Back Self 11/23/2022 - Unknown Clinical Notes Includes: Clinical Notes from this encounter * Progress note Date Encounter Last Documented by 03/21/2023 WC POST OP Last documented on 03/21/2023; 3:43 PM, Juliana Cooper; [facility], [facility] Active Problems & Conditions - Joint Pain in the Left Knee Chief Complaint The Chief Complaint is: Left knee pain. Referred Here Referred by. History of Present Illness Jay Knight is a 57 year old male. - Allergy list reviewed - Problem list reviewed - Medication list reviewed 57-year-old male presents for second postoperative follow-up appointment status post a left partial knee arthroplasty on 01/23/23. He continues to do well during the post-operative period of time. Incision site is well healed and without signs of infection. He denies fever and chills. He has been participating in physical therapy with good progress and has been compliant with daily, home based therapy exercises. Current Medication - B-Complex Oral Tablet take as directed 0 days, 0 refills - Cetirizine HCl 10 MG Oral Tablet take as directed 0 days, 0 refills - Coenzyme Q-10 100 MG Oral Capsule take as directed 0 days, 0 refills - Colace 100 MG Oral Capsule Take 1-2 capsules daily as needed, 30 days, 2 refills - [facility] Oznmuheybxc-Pfsdxkbhy-IXD 375-300-250 MG Oral Tablet take as directed 0 days, 0 refills - Fish Oil + D3 8657-4786 MG-UNIT Oral Capsule take as directed 0 [...] allergic reaction. Physical Findings - Vitals taken 03/21/2023 03:32 pm ck Height 72 in Weight 250 lbs Body Mass Index 33.9 kg/m2 Body Surface Area 2.3 m2 Standard Measurements: - Patient was overweight. Well appearing male in no acute distress. Left lower extremity: Incision is well-healed. There are no signs of erythema, drainage, induration or infection Range of motion is from 0-125- Ligamentously stable throughout range of motion Patient has 5 out of 5 motor strength in tib ant and gastroc Sensation intact to light touch testing to SPN TPN and tibial nerves 2+ dorsalis pedis pulse No signs of DVT Tests X-rays performed today, 3 views of the left knee and 1 view of the right knee; AP, lateral and sunrise views demonstrate findings of the implants in overall good alignment and position. There are no signs of loosening and no signs of osteolysis. There are no other bony or osseous abnormalities. Assessment 57-year-old male presents 8 weeks status post a left partial knee arthroplasty on 01/23/23. He continues to do well during the post-operative period of time. Incision site is well healed and without signs of infection. He denies fever and chills. He has been participating in physical therapy with good progress and has been compliant with daily, home based therapy exercises. Plan He will continue physical therapy with focus on strengthening and range of motion. We discussed the necessity of antibiotic prophylaxis prior to all future dental cleanings and dental procedures for lifetime. I explained that they need to call the office with a scheduled their next dental appointment, at which time we will send in the first antibiotic prescription, which will be taken orally, 1 hour prior to the dental cleaning or procedure. Patient acknowledged this with full understanding. He will return to work on 04/24/23, and was provided a letter reflective of such. Next follow up appointment will be at the one year post-operative point in time and he will call if he has any questions or concerns in the mean time. Counseling/Education - Lose weight Notes This dictation was done with voice recognition software and may contain errors and omissions. Electronically signed by Juliana Lam PA-C Electronically signed by Juliana Lam PA-C Practice Management Use of tobacco assessment performed. Care Team - ALMA GAMBINO MD - RESISTOR TESTER Health Reminders - Assess BMI satisfied 03/21/2023. - Assess Tobacco Use satisfied 03/21/2023. - Follow Up Plan BMI Management satisfied 03/21/2023.
[2025-09-13] MEDS: 0.9 % SODIUM CHLORIDE 1000ML 1,000 ML 999 ML IV (20:26)
[2025-09-13] MEDS: MORPHINE 4MG/ML SYRINGE 4 MG IV (20:26)
[2025-09-13 20:42] LABS: Hematocrit 40.3 % (42.0-52.0); Hemoglobin 13.9 g/dL (14.1-18.0); Immature Granulocytes % 0.1 %; Mean Corpuscular HGB Conc 34.5 g/dL (31.8-35.4); Mean Corpuscular Hemoglobin 28.6 pg (27.0-31.2); Mean Corpuscular Volume 82.9 fl (80-94); Nucleated Red Blood Cells % 0 %; Platelet Count 208 K/mm3 (142-424); Red Blood Count 4.86 M/mm3 (4.60-6.20); Red Cell Distribution Width-SD 38.4 fL; White Blood Count 8.9 K/mm3 (4.8-10.8)
[2025-09-13 20:46] LABS: Albumin Level 4.1 g/dl (3.5-5.0); Chloride 102 mmol/L (98-107); Potassium 3.7 mmoL/L (3.5-5.1); Sodium 139 mmol/L (136-145)
[2025-09-13 20:48] LABS: Alanine Aminotransferase 25 U/L (12-78); Alkaline Phosphatase 51 U/L (38-126); Anion Gap 12.7 mEq/L (5-15); Aspartate Amino Transferase 29 U/L (17-59); Bilirubin,Total 0.4 mg/dl (0.2-1.3); Blood Urea Nitrogen 23 mg/dl (9-20); Carbon Dioxide 28 mmol/L (22.0-30.0); Creatinine Clearance Estimated 140 mL/min (50-200); Creatinine,Serum 0.90 mg/dl (0.66-1.25); Estimated Glomerular Filt Rate 86 ml/min (>60); GFR (African American) 104 ML/MIN (>60)
[2025-09-13 20:49] LABS: Albumin/Globulin Ratio 1.3 (1.1-1.8); Calcium 8.4 mg/dl (8.4-10.2); Globulin 3.2 g/dL (1.3-3.2); Glucose 114 mg/dl (74-100); Lipase 102 U/L (23-300); Total Protein,Serum 7.3 g/dl (6.3-8.2)
[2025-09-13] MEDS: IOPAMIDOL-370 (76%);100ML BOTTLE 75 ML IV (21:15)
[2025-09-13] MEDS: SODIUM CHLORIDE 0.9% 10ML SYR (RAD ONLY) 10 ML IV (21:15)
[2025-09-13 22:46] LABS: Microscopic, Urine URINE MICROSCOPIC (MICROSCOPIC)
[2025-09-13 22:47] LABS: Bilirubin,Urine Negative (Negative); Color,Urine YELLOW (Yellow); Glucose,Urine (UA) Negative (Negative); Ketones,Urine Negative (Negative); Leukocyte Esterase,Urine Negative (Negative); PH,Urine 5.5 (5.0-8.5); Protein,Urine Negative (Negative); Specific Gravity, Urine 1.015 (1.005-1.030); Urobilinogen,Urine 0.2 EU/dl (0.2)
[2025-09-13 22:54] LABS: Squamous Epithelial Cell,Urine Occasional #/hpf (0-5)
[2025-09-13 23:21] VITALS: BP 134/71; PULSE 66; RESP 18; TEMP 36.6; O2SAT 97
--- NOTE | 2025-09-13 23:22 | PC.NURSE ---
IV Discontinued, catheter tip intact, bleeding controlled
== END 2025-09-13 23:23 | disposition home or self-care (01) ==
PROVIDERS: Physician Assistant; Emergency Provider Student in an Organized Health Care Education/Training Program; PCP Nurse Practitioner Family
DX: R10.32 Left lower quadrant pain (principal); I10 Essential (primary) hypertension; E78.5 Hyperlipidemia, unspecified
CPT/HCPCS: 74177; 80053; 81001; 83690; 85025; 96361; 96374; 99284; J2270; J7030; Q9967

== ENCOUNTER 2025-10-24 10:10 | Outpatient (CLI) | payer BC, SELFPAY ==
--- OUTSIDE RECORDS SUMMARY | 2025-03-01 16:30 | XMS_ITS ---
Author Organization [facility] Address [address] [place] [address] Care Team Providers Care Thread Spooler Name Role Phone Arlene Bermeo Primary Care Provider [phone] ARLENE BERMEO Unavailable Unavaila ble Migration, Provider Unavailable Unavailable [facility] Conversion Encounter Medications Medication SIG (Take, Route, Frequency, Duration) Notes Start Date End Date Status Levothyroxine Sodium 200 MCG 1 tab(s) orally once a day; Duration: 30 days Active traZODone HCl 50 MG 1 tab orally once a day at bedtime; Duration: 90 days 09/09/2024 Active Pravastatin Sodium 10 MG 1 tab(s) orally once a day; Duration: 90 days 09/09/2024 Active Metoprolol Succinate ER 50 MG 1 tab(s) orally once a day; Duration: 90 days Active Omeprazole 40 MG 1 cap(s) orally once a day; Duration: 90 days 09/09/2024 Active Sertraline HCl 150 MG 1 CAP(S) ORALLY ONCE A DAY; Duration: 30 DAYS *Please review and pick correct [facility]. If intended option is not shown, discontinue and re-order from Quick Search* Active Xarelto 20 MG 1 tab(s) orally once a day (in the evening) Active Lisinopril-hydroCHLOR Othiazide 20-12.5 MG 1 tab(s) orally once a day; Duration: 90 days 09/05/2024 Active Encounters Encounter Location Date Provider Diagnosis [facility] [address] [place] [address] 03/01/2025 Provider Migration Plan Of Treatment Medication Medication Name Sig Start Date Stop Date Notes Levothyroxine Sodium 200 MCG 1 tab(s) orally once a day; Duration: 30 days Sertraline HCl 150 MG 1 CAP(S) ORALLY ONCE A DAY; Duration: 30 DAYS *Please review and pick [facility]. If intended option is not shown, discontinue and re-order from Quick Search* Progress Notes * Jay KNIGHTDOB:1965 (6 0 yo M)Acc No.[id number]:03/01/2025 Patient: Jay REIS Provider: Vivek Merino :1965 A ge:59 Y S ex:Male Date:03/01/2025 Address:[address] [facility] [id number] Pcp:Arlene Bermeo Subjective: * Chief Complaints: * 1 . [facility] En[facility]. * Medical History: * Medications: T aking Xarelto 20 MG Tablet 1 tab(s) orally once a day (in the evening) , Taking Lisinopril-hydroCHLOROthiazide 20-12.5 MG Tablet 1 tab(s) orally once a day , Taking Omeprazole 40 MG Capsule Delayed Release 1 cap(s) orally once a day , Taking Pravastatin Sodium 10 MG Tablet 1 tab(s) orally once a day , Taking traZODone HCl 50 MG Tablet 1 tab orally once a day at bedtime , Taking Metoprolol Succinate ER 50 MG Tablet Extended Release 24 Hour 1 tab(s) orally once a day Objective: * Vitals: Assessment: Plan: * Treatment: * * Electronic signature of April yost Migration on 10/24/2025 at 10:13 AM EST Sign off status: Pending * Provider: Vivek Merino Date: 0 03/01/2025 Generated for Tonia car/Brian/Tai on: 12/24/2024 10:13 AM EST
--- OUTSIDE RECORDS SUMMARY | 2025-10-11 04:15 | XMS_ITS ---
Author Organization [facility] PE D TRISHA Address [address] [place] [address] Care Team Providers Care Quantitative Software Engineer Name Role Phone Chris Bermeo Primary Care Provider CHRIS BERMEO Unavailable Unavaila ble Allergies No Known Allergies Reason For Referral Reason thyroid US Diagnosis 1 Hypothyroidism, unsp ecified type (E03.9) Referral Organization [facility] AL ROOT Referring Provider First Name Chris Referring Provider Last Name Elvie Referring Provider Speciality Family Pra ctice Referred Organization [facility] Referred Address [address],[address],[place] Referred Provider Specialty Diagnostic R adiology General Notes Sarah Mcmillan 2024 10:55:05 AM >sent to [facility] to schedule appt Referral Priority Routine Reason renal US Diagnosis 1 Right renal mass (N2 8.89) Referral Organization [facility] AL ROOT Referring Provider First Name Chris Referring Provider Last Name Elvie Referring Provider Speciality Family Pra ctice Referred Organization [facility] Referred Address [address] [facility] [address] [place], [place],[address] Referred Provider Specialty Diagnostic R adiology General Notes Sarah Mcmillan 2024 10:55:27 AM >sent to [facility] to schedule appt Referral Priority Routine Reason LDCT chest after Diagnosis 1 Personal history of tobacco use (Z87.891) Referral Organization [facility] AL ROOT Referring Provider First Name Chris Referring Provider Last Name Elvie Referring Provider Speciality Family Pra ctice Referred Organization [facility] Referred Address [address] [facility] [address] [facility], [place],[address],[place] Referred Provider Specialty Diagnostic R adiology General Notes Sarah Mcmillan 2024 09:26:45 AM >no auth required for CPT 43232, Sent to [facility] to schedule appt Referral Priority Routine REASON FOR VISIT Yearly Medications Medication SIG (Take, Route, Frequency, Duration) Notes Start Date End Date Status Xarelto 20 MG 1 tab(s) orally once a day (in the evening) Active Sertraline HCl 150 MG 1 CAP(S) ORALLY ON CE A DAY; Duration: 30 DAYS Active Metoprolol Succinate ER 50 MG 1 tab(s) orally once a day; Duration: 90 days Active Pravastatin Sodium 10 MG 1 tab(s) orally once a day; Duration: 90 days Active Valsartan-hydroCHLOROthiazid e 160-25 MG 1 tablet Orally Once a day Active Levothyroxine Sodium 200 MCG 1 tab(s) or ally once a day; Duration: 90 days Active traZODone HCl 50 MG 1 tab orally once a day at bedtime; Duration: 90 days Active Social History Tobacco Use: Social History Observation Description Date Details (start date - stop date) Former Smoker NA - 01/31/2025 Tobacco Control (Standard) Question Answer Notes Tobacco use: Former smoker When did you stop smoking? 01/31/2025 How long has it been since you last smoked? 1-5 years Problems Problem Type SNOMED Code ICD Code Onset Dates Problem Status W/U Status Risk Notes Problem Prediabetes (065320919) Prediabetes (R73.03) Active confirmed Problem Obese class II (193079903191265 ) BMI 36.0-36.9,adult (Z68.36) Active confirmed Problem Disorder of kidney and/or ureter (467617048) Right renal mass (N28.89) Active confirmed Vital Signs Temperature 97.8 degrees Fahrenheit 10/11/20 25 Blood pressure systolic 136 mm Hg 10/11/20 25 Blood pressure diastolic 70 mm Hg 025 Heart Rate 60 /min 10/11/2025 Height 70 in 10/11/2025 Weight 254.3 lbs 10/11/2025 BMI 36.48 kg/m2 10/11/2025 Encounters Encounter Location Date Provider Diagnosis [facility] TRISHA [address] [place], [place] [address] 10/11/2025 Chris Bermeo PAF (paroxysmal atri al fibrillation) I48.0 ; Routine medical exam Z00.00 ; Essential hypertension I10 ; Hypothyroidism, unspecified type E03.9 ; VINH on CPAP G47.33 ; Personal history of tobacco use Z87.891 ; Screening PSA (prostate specific antigen) Z12.5 ; Prediabetes R73.03 ; BMI 36.0-36.9,adult Z68.36 ; Seasonal allergic rhinitis, unspecified trigger J30.2 ; Globus sensation R09.A2 and Right renal mass N28.89 Assessments Encounter Date Diagnosis (ICD Code) Assessment Notes Treatment Notes Treatment Clinical Notes Section Notes 10/11/2025 PAF (paroxysmal atrial fibrillation) (ICD-10 - I48.0) Continue AC and beta letitia, cardiology FU 10/11/2025 Routine medical exam (ICD-10 - Z00.00) Well Visit, Ages 18 to 65: Care Instructions material was published 10/11/2025 Essential hypertension (ICD-10 - I10) well controlled 10/11/2025 Hypothyroidism, unspecified type (ICD-10 - E03.9) repeat labs as noted 10/11/2025 VINH on CPAP (ICD-10 - G47.33) continue FU with Dr Ruiz, CPAP 10/11/2025 Personal history of tobacco use (ICD-10 - Z87.891) no longer smoking but meets criteria for screening, due after 11/25/24 10/11/2025 Screening PSA (prostate specific antigen) (ICD-10 - Z12.5) 10/11/2025 Prediabetes (ICD-10 - R73.03) A1C 5.7, recommend repeat and encouraged weight loss efforts 10/11/2025 BMI 36.0-36.9,adult (ICD-10 - Z68.36) 10/11/2025 Seasonal allergic rhinitis, unspecified trigger (ICD-10 - J30.2) 10/11/2025 Globus sensation (ICD-10 - R09.A2) repeat thyroid US, consider CT neck pending those results and if any progression of symptoms 10/11/2025 Right renal mass (ICD-10 - N28.89) seen on CT, recommend US 10/11/2025 Other Plan Of Treatment Treatment Notes Assessment Notes PAF (paroxysmal atrial fibrillation) Con tinue AC and beta letitia, cardiology FU Routine medical exam Well Visit, Ages 18 to 65: Care Instructions material was published Essential hypertension well controlled Hypothyroidism, unspecified type repeat labs as noted Personal history of tobacco use no longe r smoking but meets criteria for screening, due after 11/25/24 Pending Test Test Name Order Date Ultrasound : Kidneys, Bilateral 10/11/20 Ultrasound : Thyroid 10/11/2025 M-Hemoglobin A1C 10/11/2025 M-Prostate Specific Ag Screen 10/11/2025 M-Free T4 (Free Thyroxine) 10/11/2025 M-Thyroid Stimulating Hormone 10/11/2025 Referrals Referral Date Details 10/11/2025 10/11/2025, thyroid US, [address] [place], [address], 10/11/2025 10/11/2025, renal US , [address] [place], [address], 10/11/2025 10/11/2025, LDCT yessy st after 11/25/25, [address] [facility] [place], [address], Next Appt Details Follow Up: 6 Months, Reason: Medications Administered Medication Instructions Date of Administration Dosage Notes Dexamethasone 4mg Injection 10/11/2025 4 mg Progress Notes * Jay KNIGHTDOB:1965 (6 0 yo M)Acc No.[id number]:10/11/2025 Progress Notes Patient: Jay REIS Provider: DEBORA Neri :1965 A ge:60 Y S ex:Male Date:10/11/2025 Address:[address] [facility] [id number] Subjective: * Chief Complaints: * 1 . Yearly. * HPI: g en: Presents today to FU regarding chronic disease and AWV. Following with Dr Ruiz and Dr Ghosh routinely as well. VINH - on CPAP many years. Tolerates well Hypothyroidism - due soon for monitoring labs Depression/anxiety - on sertraline for many years and works well. Dose increased after father's RIGHT mid to lower back pain for a year or better, w ria in certain positions. No radicular pain or urinary symptoms other than intermittent urgency/frequency. 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 Bile reflux but otherwise negative workup but this sensation persists. Bowels moving well, no difficulty swallowing. + chronic allergies. ED - in the ED about 3 weeks ago with LUQ pain, now more lateral. Workup there negative but some chronic findings on CT (hernia, right renal lesion, lung scarring, pancreatic granuloma). * ROS: A LLERGY: Runny nose y es. S cratchy throat y es. S inus congestion y es. R ESPIRATORY: Reviewed, No Symptoms Reported: Y es. C ARDIOLOGY: Positive for f oldiegoing with [facility] Cardiology. ? C ONSTITUTIONAL: Weight gain y es. n o L oss of appetite. n o?Fever. n o W eakness. D ERMATOLOGY: no R cesar. G ASTROENTEROLOGY: Reviewed, No Symptoms Reported: Y es. M USCULOSKELETAL: back pain y es. N EUROLOGY: Reviewed, No Symptoms Reported: Y es. P SYCHOLOGY: See HPI Y es. U ROLOGY: Reviewed, No Symptoms Reported: Y es. n o D ifficulty urinating. F requent urination y es. N octuria y es, 1 x. * Medical History: H [place], Hyperlipidemia, Depression, Sleep Apnea - on CPAP, Atrial fibrillation, followed by [facility] cardiology, Tobacco use. * Surgical History: l ow back surgery 2005, lt torn meniscus 2019, lt knee partial replacment 2022, Appendectomy 2019, scope on bowels 2021. * Hospitalization/Major Diagno stic Procedure: A ppendectomy 2019. * Family History: F ather: , kidney disease. M other: alive. P aternal Grand Father: .?Paternal Grand Mother: . M aternal Grand Father: . M aternal Grand Mother: . P aternal uncle: , diagnosed with Diabetes, Heart Disease. P aternal aunt: alive. M aternal aunt: alive. S iblings: alive. Allison santiago: alive. 1 brother(s) , 1 sister(s) - healthy. 2 son(s) , 1 daughter(s) - healthy. . * Social History: R ecreational drug use: no. Exercise: no. Home smoke detector use: yes. Caffeine: yes, frequency:coffee. Living Will: No. Alcohol: socially, Type: , Frequency: ,Years: , Determination:. Sexually active: yes. Travel outside [place]: yes, Christine. 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 Tobacco Control (Standard) T obacco use: F ormer smoker, W hen did you stop smoking? 0 01/31/2025, H ow long has it been since you last smoked? 1 -5 years. * Medications: T aking Valsartan-hydroCHLOROthiazide 160-25 MG Tablet 1 tablet Orally Once a day , Taking Xarelto 20 MG Tablet 1 tab(s) orally once a day (in the evening) , Taking Metoprolol Succinate ER 50 MG Tablet Extended Release 24 Hour 1 tab(s) orally once a day , Taking Sertraline HCl 150 MG CAPSULE 1 CAP(S) ORALLY ONCE A DAY , Taking Pravastatin Sodium 10 MG Tablet 1 tab(s) orally once a day , Taking traZODone HCl 50 MG Tablet 1 tab orally once a day at bedtime , Taking Levothyroxine Sodium 200 MCG Tablet 1 tab(s) orally once a day , Discontinued Omeprazole 40 MG Capsule Delayed Release 1 cap(s) orally once a day , Medication List reviewed and reconciled with the patient * Allergies: N .K.D.A. Objective: * Vitals: N urse: aw, Pain: 0, Temp: 97.8, RR: 16, HR: 60, BP: 136/70, Ht: 70, Wt: 254.3, BMI:36.48. * Examination: G eneral Examination: General P leasant and Cooperative, NAD on RA,. Oral cavity: M oist membranes. Heart: R egular Rate and Rhythm, no murmur, rubs or gallops. HEENT: p harynx and tonsils normal, TM's retracted, nasal turbinates erythematous and congested. Lungs: L CTAB, No wheezes, crackles or rhonchi, Good air movement,. Abdomen: S oft, NTND, BSNA, No organomegaly or peritoneal signs.. Skin: w ithout acute rashes. Peripheral pulses: n ormal (2+) bilaterally. Back: s car from prior surgery lower lumbar spine. right paraspinal, CVA region, visibly and palpably more prominent than the left side. Extremities: n ormal ROM,, no clubbing, no edema. neck s upple, questionable thyromegaly, n o lymphadenopathy,. Psych N ormal Mood/Affect. Assessment: * Assessment: 1. R outine medical exam - Z00.00 (Primary) 2 . P AF (paroxysmal atrial fibrillation) - I48.0 3 . E ssential hypertension - I10 4 . H ypothyroidism, unspecified type - E03.9 5 . O SA on CPAP - G47.33 6. P ersonal history of tobacco use - Z87.891 7 . S creening PSA (prostate specific antigen) - Z12.5 8 . P rediabetes - R73.03 9 . B NC 36.0-36.9,adult - Z68.36 1 0. S easonal allergic rhinitis, unspecified trigger - J30.2 1 1. G lobus sensation - R09.A2 1 2. R ight renal mass - N28.89 Plan: * Treatment: 2. P AF (paroxysmal atrial fibrillation) Notes: Continue AC and beta letitia, cardiology FU 3. E ssential hypertension Notes: well controlled 4. H ypothyroidism, unspecified type L AB: M-Free T4 (Free Thyroxine) L AB: M-Thyroid Stimulating Hormone I maging: Ultrasound : Thyroid * Notes: repeat labs as noted? Referral To:Diagnostic Radiology ?Reason:thyroid US 5.?VINH on CPAP? Clinical Notes: continue FU with Dr Ruiz, CPAP??6.?Personal history of tobacco use? Notes: no longer smoking but meets criteria for screening, due after 11/25/24? Referral To:Diagnostic Radiology ?Reason:LDCT chest after 11/25/25 7.?Screening PSA (prostate specific antigen)?LAB: M-Prostate Specific Ag Screen8.?Prediabetes?LAB: M-Hemoglobin A1C Clinical Notes: A1C 5.7, recommend repeat and encouraged weight loss efforts?? 9.?Globus sensation?Imaging: Ultrasound : Thyroid* Hipolito Sarah 10/11/2025 10: 14:08 AM EST > no auth required * Clinical Notes: repeat thyroid US, consider CT neck pending those results and if any progression ofsymptoms??10.?Right renal mass?Imaging: Ultrasound : Kidneys, Bilateral* Sarah Mcmillan 10/11/2025 10: 13:46 AM EST > No auth required * Clinical Notes: seen on CT, recommend US? Referral To:Diagnostic Radiology ?Reason:renal US * Therapeutic Injections: Dexamethasone 4mg Injection : 4 mg (Route: Intramuscular) given by CLARENCE Bazan on left deltoid * Procedure Codes: J 1100 Dexamethasone Sodium Phosphate 4mg Injection, 75390 THERAPEUTIC ADMINISTRATION * Preventive Medicine: Immunizations: P neumococcal e ncouraged. I nfluenza u p to date for season. T dap U TD. S hingrix U TD. C OVID C ompleted series. R SV vaccination D iscussed, will consider. Screening / Special Tests: C olonoscopy 2 023, [facility], normal. P SA d esires screening. L fer Cancer Screening d ue in . * Follow Up: 6 Months * * Sign off status: Completed true * Provider: DEBORA Neri Date: 12/11/2024 Generated for Tonia car/Brian/Tai on: 12/24/2024 10:13 AM EST History and Physical Notes * Examination Category Sub-Category Detail Notes Category Not es General Examination HEENT: pharynx and tonsils normal, TM's retracted, nasal turbinates erythematous and congested Heart: Regular Rate and Rhy thm, no murmur, rubs or gallops Lungs: LCTAB, No wheezes, c rackles or rhonchi, Good air movement, Abdomen: Soft, NTND, BSNA, No organomegaly or peritoneal signs. Extremities: normal ROM,, no club diana, no edema Skin: without acute rashes Oral cavity: Moist membranes Peripheral pulses: normal (2+) bilatera lly Back: scar from prior surg shaina lower lumbar spine. right paraspinal, CVA region, visibly and palpably more prominent than the left side neck supple, questionable thyromegaly, no lymphadenopathy, General Pleasant and Coopera tive, NAD on RA, Psych Normal Mood/Affect Consultation Request Notes Referral Date Referring Provider Referred Provider Not es 10/11/2025 Chris Bermeo , thyroid US 10/11/2025 Chris Bermeo , renal US 10/11/2025 Chris Bermeo , LDCT chest a fter 11/25/25
--- OUTSIDE RECORDS SUMMARY | 2025-10-13 04:23 | XMS_ITS ---
Author Organization [facility] Address [address] [place] [address] Care Team Providers Care Kettle Fry Cook Operator Name Role Phone Elvie Arlene Primary Care Provider ARLENE BERMEO Unavailable Unavaila ble REASON FOR VISIT Ct scan Encounters Encounter Location Date Provider Diagnosis [facility] [address] [place], [place] [address] 10/13/2025 Arlene Bermeo Personal history of tobacco use Z87.891 Assessments Encounter Date Diagnosis (ICD Code) Assessment Notes Treatment Notes Treatment Clinical Notes Section Notes 10/13/2025 Personal history of tobacco use (ICD-10 - Z87.891) Plan Of Treatment Pending Test Test Name Order Date CT Scan : Chest, Lung Cancer Screening 1 12/13/2024 Progress Notes * Jay KNIGHTDOB:1965 ([age] yo M)Acc No.[id number]:10/13/2025 Patient: Jay REIS :1965 A ge:60 Y S ex:Male [address] [facility] [place] [address] Subjective: * Chief Complaints: * C t scan * Medical History: * Surgical History: * Hospitalization/Major Diagno stic Procedure: * Medications: Objective: * Vitals: * Physical Examination: Assessment: * Assessment: 1. P ersonal history of tobacco use - Z87.891 Plan: * Treatment: * * Procedure Codes: * true * Date: Generated for Tonia car/Brian/Tai on: 12/24/2024 10:13 AM EST
--- OUTSIDE RECORDS SUMMARY | 2025-10-24 10:13 | XMS_ITS | Clinical Summary ---
Author Organization [facility] ([place], [place], [place], [place], [place]) Address [address] [place] [address] Care Team Providers Care Junior Paralegal Name Role Phone Jewels Moreira APRN Primary Care Provider [phone] Allergies No known active allergies Medications rivaroxaban [...] Date Dieudonne rded Speak language other than Citizen Of [place] at home Not on file 12/16/2023 Want help with school or training Not on file 12/16/2023 Substance Use Answer Date Recorded Used prescription meds for non-medical reasons N ot on file 12/16/2023 Used illegal drugs past 12 months Not on file 12/16/2023 Sex and Gender Information Value Date Recorded Sex Assigned at Not on file Legal Sex Male 2:51 PM FACE HARDENER Gender Identity Not on file Sexual Orientation [...] (12+) 05/08/2024 05/08/2023 COVID-19 VACCINE ( season) 2025 08/27/2021, 02/25/2021, 02/02/2021 Influenza Vaccine (#1) [address] [facility] [place] [address] [facility] [phone] BLUE CROSS/BLUE SHIELD Care Teams Junior Paralegal Relationship Specialty Start Date End Date Jewels Moreira, BARBER INSTRUCTOR [address] [place] [id number] PCP - General Nurse Practitioner 01/02/23
--- NOTE | 2025-10-24 10:14 | US_ITS ---
FINAL REPORT TECHNIQUE: Sonographic images of the kidneys and retroperitoneum were obtained in the longitudinal and transverse planes. CLINICAL HISTORY: RT RENAL MASS AND HYPOTHYROIDISM, GLOBUS SENSATION COMPARISON: CT scan 09/14/2025 FINDINGS: The right kidney measures 11.6 cm in zvib-ac-vpym length. No hydronephrosis, mass, or stone. Small hypoechoic lesion measuring 13 mm arising from the lower pole corresponding to abnormality seen on CT scan and likely a cyst. The left kidney measures 10.1 cm in fcag-wl-ltjr length. No hydronephrosis, mass, or stone. Cortical echogenicity and thickness are normal. IMPRESSION: Small right renal cyst. Otherwise, morphologically normal kidneys bilaterally. Reviewed, Interpreted and Dictated by Maritza Portillo MD Transcribed by Elin Edwards Authenticated and [facility]
--- OUTSIDE RECORDS SUMMARY | 2025-10-24 10:14 | XMS_ITS | Patient Health Record ---
Author Organization [facility] Address [address] [place] [address] Care Team Providers Care Employment Recruiter Name Role Phone Alrene Bermeo Primary Care Provider ARLENE BERMEO Unavailable Unavaila ble Migration, Provider Unavailable Unavailable Allergies No Known Allergies Results Component Value Reference Range Notes M-Complete Blood Count Auto Diff Reviewed date:11/28/2024 [...] 0.2 0.0-0.4 K/mm3 BA# 0.0 0-0.2 K/mm3 M-Urinalysis and Microscopic Reviewed date:11/28/2024 05:16:12 PM [...] Occasional 0-5 #/hpf UBACT None NONE /lpf M-Lipid Panel Reviewed date:11/28/2024 05:16:12 PM Interpretation: Performing Lab: Notes/Report: Patient Fasting? Y TRIG 165 30-150 mg/dl CHOL 159 140-200 mg/dl DLDL 100.81 100-129 mg/dL VLDL 33 0-40 mg/dL HDL 22 40-60 mg/dl CHLHDL 7.2 1-3.5 M-Prostate Specific Ag Scree n Reviewed date:11/28/2024 05:16:12 PM Interpretation: Performing Lab: Notes/Report: PSASC 3.8 0.0-4.0 ng/ml M-Thyroid Stimulating Hormon e Reviewed date:11/28/2024 05:16:13 PM Interpretation: Performing Lab: Notes/Report: TSH 41.70 0.465-4.68 uIU/mL X ray : Spines, Thoracic Spi ne Reviewed date:12/13/2024 12:15:32 PM Interpretation: Performing Lab: Notes/Report: CT Scan : Chest, Lung Cancer Screening Reviewed date:11/28/2024 03:53:35 PM Interpretation: Performing Lab: Notes/Report: Urinalysis Reviewed date:03/03/2025 05:30:47 PM Interpretation: Performing Lab: Notes/Report: Color/Clarity anthony Leuk neg Nitrite neg Urobili 0.2 Protein neg pH 5.5 Blood trace-intact Sp. Gr. >=1.030 Ketone neg Bili neg Glucose neg URINALYSIS, COMPLETE (5449) Reviewed date:03/05/2025 12:44:35 PM Interpretation: Performing Lab:CB, [facility] [facility], [facility] Health[facility]iYJ[address] Harris Bains Notes/Report: NON-FASTING COLOR YELLOW YELLOW [...] elements. Only those elements seen were reported. TSH W/REFLEX TO FT4 (64895) Reviewed date:03/05/2025 12:44:56 PM Interpretation: Performing Lab:LUANNE, [facility] [facility], [facility] HealthIlibTD[address] Harris Bains Notes/Report: NON-FASTING TSH W/REFLEX TO FT4 3.50 0.40-4.50 mIU/L M-Comprehensive Metabolic Pa thu Reviewed date:11/28/2024 05:16:12 [...] AGRATIO 1.9 1.1-1.8 ALP 40 38-126 U/L X ray : Spines, Lumbosacral Reviewed date:12/11/2024 09:41:38 PM Interpretation: Performing Lab: Notes/Report: M-Hemoglobin A1C Reviewed date:12/13/2024 12:15:32 PM Interpretation: Performing Lab: Notes/Report: HGBA1C 5.7 4.0-6.0 % < 6% Non-Diabetic Level < 7% Controlled Diabetic Level > 8% Poorly Controlled Diabetic Level Reason For Referral Reason thyroid US Diagnosis 1 Hypothyroidism, unsp ecified type (E03.9) Referral Organization [facility] Referring Provider First Name Arlene Referring Provider Last Name Elvie Referring Provider [facility] ctice Referred Organization [facility] Referred Address [address] [place] [phone],[place] Referred Provider Specialty Diagnostic R adiology General Notes Sarah Mcmillan 2024 10:55:05 AM >sent to [facility] to schedule appt Referral Priority Routine Reason renal US Diagnosis 1 Right renal mass (N2 8.89) Referral Organization [facility] Referring Provider First Name Arlene Referring Provider Last Name Elvie Referring Provider [facility] ctice Referred Organization [facility] Referred Address [address],[address],[place] Referred Provider Specialty Diagnostic R adiology General Notes Sarah Mcmillan 2024 10:55:27 AM >sent to [facility] to schedule appt Referral Priority Routine Reason LDCT chest after Diagnosis 1 Personal history of tobacco use (Z87.891) Referral Organization [facility] Referring Provider First Name Arlene Referring Provider Last Name Elvie Referring Provider [facility] ctice Referred Organization [facility] Referred Address [address],[address],[place] Referred Provider Specialty Diagnostic R adiology General Notes Sarah Mcmillan 2024 09:26:45 AM >no auth required for CPT 58063, Sent to [facility] to schedule appt Referral Priority Routine Medications Medication SIG (Take, Route, Frequency, Duration) Notes Start Date End Date Status Valsartan-hydroCHLOROthiazid e 160-25 MG 1 tablet Orally Once a day Active Xarelto 20 MG 1 tab(s) orally once a day (in the evening) Active Levothyroxine Sodium 200 MCG 1 tab(s) or ally once a day; Duration: 90 days Active Sertraline HCl 150 MG 1 CAP(S) ORALLY ON CE A DAY; Duration: 30 DAYS Active Metoprolol Succinate ER 50 MG 1 tab(s) orally once a day; Duration: 90 days Active traZODone HCl 50 MG 1 tab orally once a day at bedtime; Duration: 90 days Active Pravastatin Sodium 10 MG 1 tab(s) orally once a day; Duration: 90 days Active Immunizations Vaccine Route Administration Date Status [...] Problem Status W/U Status Risk Notes Problem Essential hypertension (92978136) Essential hypertension (I10) Active confirmed Problem Obese class II (776937084711066) BMI 36.0-36.9,adult (Z68.36) Active confirmed Problem Hypothyroidism (24587735) Hypothyroidism, unspecified type (E03.9) Active confirmed Problem Obstructive sleep apnea syndrome (52838992) VINH on CPAP (G47.33) Active confirmed Problem Prediabetes (323825512) Prediabetes (R73.03) Active confirmed Problem Disorder of kidney and/or ureter (300675985) Right renal mass (N28.89) Active confirmed Problem Atrial fibrillation (58754057) PAF (paroxysmal atrial fibrillation) (I48.0) Active confirmed Problem Mixed hyperlipidemia (618460349) Mixed dyslipidemia (E78.2) Active confirmed Problem Seasonal allergic rhinitis (023310298) Seasonal allergic rhinitis, unspecified trigger (J30.2) Active confirmed Vital Signs Heart Rate 60 /min 10/11/2025 Temperature 97.8 degrees Fahrenheit 10/11/2025 Blood pressure diastolic 70 mm Hg 10/11/2025 Height 70 in 10/11/2025 Blood pressure systolic 136 mm Hg 10/11/2025 Weight 254.3 lbs 10/11/2025 BMI 36.48 kg/m2 10/11/2025 Encounters Encounter Location Date Provider Diagnosis [facility] [address] [facility] [address] [place] [address] 03/01/2025 Provider Migration [facility] [address] [facility] [address] [place] [address] 11/05/2024 Arlene Bermeo Essential hypertension I10 ; Hypothyroidism, unspecified type E03.9 ; PAF (paroxysmal atrial fibrillation) I48.0 ; VINH on CPAP G47.33 ; Mid back pain on right side M54.9 ; Personal history of tobacco use Z87.891 ; Immunization(s) administered Z23 and Screening PSA (prostate specific antigen) Z12.5 [facility] [address] [place] [address] 03/03/2025 Arlene Bermeo Essential hypertension I10 ; Hypothyroidism, unspecified type E03.9 ; Nocturia R35.1 ; Seasonal allergic rhinitis, unspecified trigger J30.2 and Mid back pain on right side M54.9 [facility] [address] [facility] [address] [place] [address] 10/11/2025 Arlene Bermeo PAF (paroxysmal atrial fibrillation) I48.0 ; Routine medical exam Z00.00 ; Essential hypertension I10 ; Hypothyroidism, unspecified type E03.9 ; VINH on CPAP G47.33 ; Personal history of tobacco use Z87.891 ; Screening PSA (prostate specific antigen) Z12.5 ; Prediabetes R73.03 ; BMI 36.0-36.9,adult Z68.36 ; Seasonal allergic rhinitis, unspecified trigger J30.2 ; Globus sensation R09.A2 and Right renal mass N28.89 [facility] [address] [facility] [address] [place] [address] 11/28/2024 Arleneteo StevensonElvie [facility] [address] [facility] [address] [place] [address] 12/09/2024 Arlene Bermeo Lumbar back pain M54.50 [facility] [address] [facility] [address] [place], [place] [address] 09/15/2025 Arlene Bermeo [facility] [address] [place] [address] 09/25/2025 Arlene Bermeo [facility] [address] [place], [place] [address] 10/11/2025 [facility] [address] [place] [address] 10/13/2025 Arlene Bermeo Personal history of tobacco use Z87.891 Assessments Encounter Date Diagnosis (ICD Code) Assessment Notes Treatment Notes Treatment Clinical Notes Section Notes 12/09/2024 Lumbar back pain (ICD-10 - M54.50) 03/03/2025 Essential hypertension (ICD-10 - I10) well controlled 03/03/2025 Hypothyroidism, unspecified type (ICD-10 - E03.9) repeat labs as noted 10/11/2025 Routine medical exam (ICD-10 - Z00.00) Well Visit, Ages 18 to 65: Care Instructions material was published 10/11/2025 PAF (paroxysmal atrial fibrillation) (ICD-10 - I48.0) Continue AC and beta letitia, cardiology FU 11/05/2024 Essential hypertension (ICD-10 - I10) well controlled 10/13/2025 Personal history of tobacco use (ICD-10 - Z87.891) 11/05/2024 Hypothyroidism, unspecified type (ICD-10 - E03.9) repeat labs as noted 10/11/2025 Essential hypertension (ICD-10 - I10) well controlled 03/03/2025 Nocturia (ICD-10 - R35.1) may be [...] to start flonase routinely and continue zyrtec 10/11/2025 Hypothyroidism, unspecified type (ICD-10 - E03.9) repeat labs as noted 11/05/2024 VINH on CPAP (ICD-10 - G47.33) continue FU with Dr Ruiz, CPAP 11/05/2024 Mid back pain on right side (ICD-10 - M54.9) suspect muscular, imaging/UA as noted, encouraged massage 10/11/2025 VINH on CPAP (ICD-10 - G47.33) continue FU with Dr Ruiz, CPAP 03/03/2025 Mid back pain on right side (ICD-10 - M54.9) suspect muscular, imaging and UA in October indicated degenerative changes, neg UA at that time. Declines PT, pain management. Discussed massage, use of OTC topical analgesics, chiropracter 11/05/2024 Personal history of tobacco use (ICD-10 - Z87.891) encouraged cessation efforts, screening CT chest 10/11/2025 Personal history of tobacco use (ICD-10 - Z87.891) no longer smoking but meets criteria for screening, due after 11/25/24 11/05/2024 Immunization(s) administered (ICD-10 - Z23) 10/11/2025 Screening PSA (prostate specific antigen) (ICD-10 - Z12.5) 10/11/2025 Prediabetes (ICD-10 - R73.03) A1C 5.7, recommend repeat and encouraged weight loss efforts 11/05/2024 Screening PSA (prostate specific antigen) (ICD-10 - Z12.5) 10/11/2025 BMI 36.0-36.9,adult (ICD-10 - Z68.36) 10/11/2025 Seasonal allergic rhinitis, unspecified trigger (ICD-10 - J30.2) 10/11/2025 Globus sensation (ICD-10 - R09.A2) repeat thyroid US, consider CT neck pending those results and if any progression of symptoms 10/11/2025 Right renal mass (ICD-10 - N28.89) seen on CT, recommend US 11/05/2024 Other 10/11/2025 Other Plan Of Treatment Pending Test Test Name Order Date Ultrasound : Kidneys, Bilateral 10/11/20 25 Ultrasound : Thyroid 10/11/2025 M-Complete Blood Count Auto Diff 024 M-Urinalysis and Microscopic 11/05/2024 M-Comprehensive Metabolic Panel 11/05/20 M-Hemoglobin A1C 11/28/2024 M-Hemoglobin A1C 10/11/2025 M-Lipid Panel 11/05/2024 M-Prostate Specific Ag Screen 11/05/2024 M-Prostate Specific Ag Screen 10/11/2025 M-Free T4 (Free Thyroxine) 10/11/2025 M-Thyroid Stimulating Hormone 11/05/2024 M-Thyroid Stimulating Hormone 10/11/2025 CT Scan : Chest, Lung Cancer Screening 1 12/13/2024 Insurance Providers Payer Name Payer Address Payer Phone Subscriber Number Group Number Insured Name Patient Relationship to Insured Coverage Start Date Coverage End Date [facility] [id number] [place] [address] [id number] Jay Knight Self - patient is the insured Medications Administered Medication Instructions Date of Administration Dosage Notes Dexamethasone 4mg Injection 03/03/2025 4 mg Dexamethasone 4mg Injection 10/11/2025 4 mg Medical (General) History Medical History History ICD Code HTN Hyperlipidemia Depression Sleep Apnea - on CPAP Atrial fibrillation, followed by [facility] car diology Tobacco use Surgical History Surgery Date(Month/Year) low back surgery 2006 lt torn meniscus 2019 lt knee partial replacment 2022 Appendectomy 2019 scope on bowels 2021 Hospitalization History Reason Date(Month/Year) Appendectomy 2019
--- OUTSIDE RECORDS SUMMARY | 2025-10-24 10:14 | XMS_ITS | Clinical Summary ---
Author Organization [facility] Address [address] [place] [address] Care Team Providers Care Field Crop Farmer Name Role Phone Odin Vergara MD Primary [...] VACCINE 06/27/2025 Medical Devices Implanted Type Area Inventory Control Specialist Device Identifier Shelf Expiration Date Model / Serial / Lot Reload Stplr [place] Flex Gst St[address] 60 Wht - [id number] Implanted:Qty : 1 on 06/10/2020 by Kumar Savage MD at [facility] Implant N/A: Abdomen [employer] 11/26/2022 [id number] / / [id number] Reload [place] Flex Gst Reg 3.6mm Alfred - [id number] Implanted:Qty : 1 on 06/10/2020 by Kumar Savage MD at [facility] Implant N/A: Abdomen [employer] J 02/24/2023 [id number] / / [id number] Insurance 2009 [facility] [place] [id number] [facility] PPO Member Subscriber Plan / Payer (Ef fective 2014-Present) Name:Jay Knight Jr. Relation to Subscriber:Self Name:Jay Knight Jr. Payer ID:[id number] (NAIC) Type:Not on file Address: [facility] [id number] [place] [id number] Advance Directives * CPR (Attempt to Resuscitate) (Latest Code Status on File) Date Activated Date Inactivated Comments 06/10/2020 7:46 PM 2020 1:16 PM Question Answer Comments Code Status (Patient has no pulse and is not breathing): CPR (Attempt to Resuscitate) Medical Interventions (Patie nt has pulse or is breathing): Full Level Of Support Discussed With: Patient Care Teams Field Crop Farmer Relationship Specialty Start Date End Date Odin Vergara MD PCP - General Family Medicine 06/10/20
--- OUTSIDE RECORDS SUMMARY | 2025-10-24 10:14 | XMS_ITS | Referral Summary ---
Author Organization [facility] ([place], [place], [place], [place], [place]) Address [address] [place] [address] Care Team Providers Care Paper Conservator Name Role Phone Jewels Moreira DAISY Primary Care Provider [phone] Allergies No known active allergies Medications rivaroxaban [...] Date Dieudonne rded Speak language other than [place] at home Not on file 12/16/2023 Want help with school or training Not on file 12/16/2023 Substance Use Answer Date Recorded Used prescription meds for non-medical reasons N ot on file 12/16/2023 Used illegal drugs past 12 months Not on file 12/16/2023 Sex and Gender Information Value Date Recorded Sex Assigned at Not on file Legal Sex Male 2:51 PM NAIL TECH Gender Identity Not on file Sexual Orientation [...] of Treatment Not on file Insurance 2009 [facility] [place] [id number] BLUE CROSS/BLUE SHIELD Care Teams Paper Conservator Relationship Specialty Start Date End Date Jewels Moreira, DIRECTOR FUNDRAISING [address] [phone] PCP - General Nurse Practitioner 01/02/23
--- OUTSIDE RECORDS SUMMARY | 2025-10-24 10:14 | XMS_ITS | Clinical Summary ---
Author Organization [facility] Address [address] [place] [address] Care Team Providers Care Research Assoc Name Role Phone Unavailable Primary Care Provider [...]
--- NOTE | 2025-10-24 10:15 | US_ITS ---
FINAL REPORT TECHNIQUE: Sonographic images of the thyroid gland were obtained in the longitudinal and transverse planes. CLINICAL HISTORY: RT RENAL MASS AND HYPOTHYROIDISM, GLOBUS SENSATION COMPARISON: None FINDINGS: The right lobe measures 1.2 x 4.2 x 1.0 cm. There is a right thyroid nodule measuring 12 mm, hypoechoic and consistent with a TR 4. The left lobe measures 1.2 x 3.8 x 1.0 cm. The left lobe is homogeneous. There are no cystic or solid nodules. The isthmus measures 4 mm. This is normal. IMPRESSION: 12 mm TR 4 right thyroid nodule. Recommend follow-up in 6 to 12 months per TI-RADS criteria. Reviewed, Interpreted and Dictated by Maritza Portillo MD Transcribed by Elin Edwards Authenticated and [facility]
== END 2025-10-24 23:59 | disposition home or self-care (01) ==
LOC: RAD 10:11
PROVIDERS: PCP Nurse Practitioner Family; Visit Provider Nurse Practitioner Family
DX: N28.1 Cyst of kidney, acquired (principal); E03.9 Hypothyroidism, unspecified; N28.89 Other specified disorders of kidney and ureter; R09.A2 Foreign body sensation, throat
CPT/HCPCS: 76536; 76770

== ENCOUNTER 2025-11-13 15:52 | Outpatient (CLI) | payer BC, SELFPAY ==
--- OUTSIDE RECORDS SUMMARY | 2025-11-13 15:54 | XMS_ITS | Clinical Summary ---
Author Organization [facility] Address [address] [place] [address] Care Team Providers Care Videotape Sales Representative Name Role Phone Odin Vergara MD Primary [...] VACCINE 06/27/2025 Medical Devices Implanted Type Area Sales Development Executive Device Identifier Shelf Expiration Date Model / Serial / Lot Reload Stplr [place] Flex Gst Stnd 60 Wht - [id number] Implanted:Qty : 1 on 06/10/2020 by Kumar Savage MD at [facility] Implant N/A: Abdomen [employer] J 11/26/2022 [id number] / / [id number] Reload [place] Flex Gst Reg 3.6mm Alfred - [id number] Implanted:Qty : 1 on 06/10/2020 by Kumar Savage MD at [facility] Implant N/A: Abdomen [employer] J 02/24/2023 [id number] / / [id number] Insurance 2009 [facility] [place] [id number] [facility] PPO Member Subscriber Plan / Payer (Ef fective 2014-Present) Name:Jay Knight Jr. Relation to Subscriber:Self Name:Jay Knight Jr. Payer ID:[id number] (NAIC) Type:Not on file Address: [facility] [id number] [place] [id number] Advance Directives * CPR (Attempt to Resuscitate) (Latest Code Status on File) Date Activated Date Inactivated Comments 06/10/2020 7:46 PM 2020 1:16 PM Question Answer Comments Code Status (Patient has no pulse and is not breathing): CPR (Attempt to Resuscitate) Medical Interventions (Patie nt has pulse or is breathing): Full Level Of Support Discussed With: Patient Care Teams Videotape Sales Representative Relationship Specialty Start Date End Date Odin Vergara MD PCP - General Family Medicine 06/10/20
--- OUTSIDE RECORDS SUMMARY | 2025-11-13 15:54 | XMS_ITS | Clinical Summary ---
Author Organization [facility] Address [address] [place] [address] Care Team Providers Care Shear Operator Name Role Phone Unavailable Primary Care Provider [...]
--- OUTSIDE RECORDS SUMMARY | 2025-11-13 15:54 | XMS_ITS | Clinical Summary ---
Author Organization [employer] ([place], [place], [place], [place], [place]) Address [address] [place] [address] Care Team Providers Care Sample Processor Name Role Phone Jewels Moreira APRN Primary [...] Date Dieudonne rded Speak language other than Kittitian at home Not on file 12/16/2023 Want help with school or training Not on file 12/16/2023 Substance Use Answer Date Recorded Used prescription meds for non-medical reasons N ot on file 12/16/2023 Used illegal drugs past 12 months Not on file 12/16/2023 Sex and Gender Information Value Date Recorded Sex Assigned at Not on file Legal Sex Male 2:51 PM LADLER Gender Identity Not on file Sexual Orientation [...] 02/02/2021 Influenza Vaccine (#1) 2025 Insurance [address] [facility] [address] [facility] [id number] BLUE CROSS/BLUE SHIELD Care Teams Sample Processor Relationship Specialty Start Date End Date Jewels Moreira, MANAGER PROTEIN [address] [place] [address] PCP - General Nurse Practitioner 01/02/23
--- OUTSIDE RECORDS SUMMARY | 2025-11-13 15:54 | XMS_ITS | Referral Summary ---
Author Organization [employer] ([place], [place], [place], [place], [place]) Address [address] [place] [address] Care Team Providers Care Immigration Paralegal Name Role Phone Jewels Moreira VARNISH MAKER Primary Care Provider Allergies No known active [...] rded Speak language other than Citizen [place] at home Not on file 12/16/2023 Want help with school or training Not on file 12/16/2023 Substance Use Answer Date Recorded Used prescription meds for non-medical reasons N ot on file 12/16/2023 Used illegal drugs past 12 months Not on file 12/16/2023 Sex and Gender Information Value Date Recorded Sex Assigned at Not on file Legal Sex Male 2:51 PM OTM CONSULTANT Gender Identity Not on file Sexual Orientation [...] file Insurance 2009 [facility] [place] [id number] BLUE CROSS/BLUE SHIELD Care Teams Immigration Paralegal Relationship Specialty Start Date End Date Jewels Moreira, VARNISH MAKER [address] [phone] PCP - General Nurse Practitioner 01/02/23
[2025-11-13 16:13] LABS: Hematocrit 44.1 % (42.0-52.0); Hemoglobin 14.7 g/dL (14.1-18.0); Immature Granulocytes % 0.1 %; Mean Corpuscular HGB Conc 33.3 g/dL (31.8-35.4); Mean Corpuscular Hemoglobin 27.7 pg (27.0-31.2); Mean Corpuscular Volume 83.2 fl (80-94); Nucleated Red Blood Cells % 0 %; Platelet Count 264 K/mm3 (142-424); Red Blood Count 5.30 M/mm3 (4.60-6.20); Red Cell Distribution Width-SD 38.3 fL; White Blood Count 7.2 K/mm3 (4.8-10.8)
[2025-11-13 16:38] LABS: Alanine Aminotransferase 28 U/L (12-78); Albumin Level 4.8 g/dl (3.5-5.0); Alkaline Phosphatase 52 U/L (38-126); Anion Gap 12.3 mEq/L (5-15); Aspartate Amino Transferase 36 U/L (17-59); Bilirubin,Direct 0.2 mg/dl (0.0-0.4); Bilirubin,Indirect 0.4 mg/dL (0.0-0.9); Bilirubin,Total 0.6 mg/dl (0.2-1.3); Bilirubin,Unconjugated 0.4 mg/dL (0.0-1.1); Blood Urea Nitrogen 25 mg/dl (9-20); Calcium 9.1 mg/dl (8.4-10.2); Carbon Dioxide 29 mmol/L (22.0-30.0); Chloride 103 mmol/L (98-107); Cholesterol 154 mg/dl (140-200); Creatinine,Serum 1.00 mg/dl (0.66-1.25); Estimated Glomerular Filt Rate 76 ml/min (>60); GFR (African American) 92 ML/MIN (>60); Glucose 112 mg/dl (74-100); HDL Cholesterol 27 mg/dl (40-60); Magnesium 2.1 mg/dl (1.6-2.3); Potassium 4.3 mmoL/L (3.5-5.1); Sodium 140 mmol/L (136-145); Total Protein,Serum 7.8 g/dl (6.3-8.2); Triglycerides 306 mg/dl (30-150)
[2025-11-13 16:58] LABS: Free T4 (Free Thyroxine) 1.61 ng/dl (0.78-2.19)
[2025-11-13 17:11] LABS: Thyroid Stimulating Hormone 0.08 uIU/mL (0.465-4.68)
[2025-11-13 18:14] LABS: Hemoglobin A1C 5.9 % (4.0-6.0)
== END 2025-11-13 23:59 | disposition home or self-care (01) ==
PROVIDERS: PCP Nurse Practitioner Family; Visit Provider Internal Medicine
DX: I48.0 Paroxysmal atrial fibrillation (principal); E78.5 Hyperlipidemia, unspecified; I10 Essential (primary) hypertension; E03.9 Hypothyroidism, unspecified; R73.03 Prediabetes; Z12.5 Encounter for screening for malignant neoplasm of prostate
CPT/HCPCS: 36415; 80048; 80061; 80076; 83036; 83735; 84439; 84443; 85025; G0103

== ENCOUNTER 2025-11-26 15:30 | Outpatient (CLI) | payer BC, SELFPAY ==
--- OUTSIDE RECORDS SUMMARY | 2025-03-01 16:30 | XMS_ITS ---
Author Organization [facility] Address [address] [place] [address] Care Team Providers Care Recreation Engineer Name Role Phone Arlene Bermeo Primary Care Provider ARLENE BERMEO Unavailable Unavaila ble Migration, Provider Unavailable Unavailable [facility] Conversion Encounter Medications Medication SIG (Take, Route, Frequency, Duration) Notes Start Date End Date Status Levothyroxine Sodium 200 MCG Tablet 1 tab(s) orally once a day; Duration: 30 days Active traZODone HCl 50 MG Tablet 1 tab orally once a day at bedtime; Duration: days 09/09/2024 Active Pravastatin Sodium 10 MG Tablet 1 tab(s) orally once a day; Duration: days 09/09/2024 Active Metoprolol Succinate ER 50 MG Tablet Extended Release 24 Hour 1 tab(s) orally once a day; Duration: 90 days Active Omeprazole 40 MG Capsule Delayed Release 1 cap(s) orally once a day; Duration: 90 days 09/09/2024 Active Sertraline HCl 150 MG CAPSULE 1 CAP(S) ORALLY ONCE A DAY; Duration: 30 DAYS *Please review and pick [facility] If intended option is not shown, discontinue and re-order from Quick Search* Active Xarelto 20 MG Tablet 1 tab(s) orally once a day (in the evening) Active Lisinopril-hydroCHLOR Othiazide 20-12.5 MG Tablet 1 tab(s) orally once a day; Duration: 90 days 09/05/2024 Active Encounters Encounter Location Date Provider Diagnosis [facility] [address] [place] [address] 03/01/2025 Provider Migration Plan Of Treatment Medication Medication Name Sig Start Date Stop Date Notes Levothyroxine Sodium 200 MCG Tablet 1 tab(s) orally once a day; Duration: 30 days Sertraline HCl 150 MG CAPSULE 1 CAP(S) ORALLY ONCE A DAY; Duration: 30 DAYS *Please review and pick correct strength-formulation from [facility] options. If intended option is not shown, discontinue and re-order from Quick Search* Progress Notes * EUGENE SamyrosarioDOB:1965 (6 0 yo M)Acc No.[id number]:03/01/2025 Patient: Jay Robledo Provider: Vivek arndt Migration :1965 A ge:59 Y S ex:Male Date:03/01/2025 Address:[address] [place] [address] [id number] Pcp:Arlene Bermeo Subjective: * Chief Complaints: * M [facility] To [facility] Conversion Encounter * Medications: T akingXarelto 20 MG Tablet 1 tab(s) orally once a day (in the evening) Lisinopril-hydroCHLOROthiazide 20-12.5 MG Tablet 1 tab(s) orally once a day Omeprazole 40 MG Capsule Delayed Release 1 cap(s) orally once a day Pravastatin Sodium 10 MG Tablet 1 tab(s) orally once a day traZODone HCl 50 MG Tablet 1 tab orally once a day at bedtime Metoprolol Succinate ER 50 MG Tablet Extended Release 24 Hour 1 tab(s) orally once a day Taking Xarelto 20 MG Tablet 1 tab(s) orally once a day (in the evening) Taking Lisinopril-hydroCHLOROthiazide 20-12.5 MG Tablet 1 tab(s) orally once a day Taking Omeprazole 40 MG Capsule Delayed Release 1 cap(s) orally once a day Taking Pravastatin Sodium 10 MG Tablet 1 tab(s) orally once a day Taking traZODone HCl 50 MG Tablet 1 tab orally once a day at bedtime Taking Metoprolol Succinate ER 50 MG Tablet Extended Release 24 Hour 1 tab(s) orally once a day Plan: * Treatment: Billing Information: * Procedure Codes: * Electronic signature of Prov ider Migration on 11/26/2025 at 03:32 PM EST Sign off status: Pending * Provider: Vivek arndt Migration Date: 0 03/01/2025 Generated for Tonia car/Brian/Tai on: 1 03:32 PM EST
--- OUTSIDE RECORDS SUMMARY | 2025-10-11 04:15 | XMS_ITS ---
Author Organization [facility] PE D TRISHA Address [address] [facility] [address] [place] [address] Care Team Providers Care Commercial Credit Specialist Name Role Phone Chris Spear Primary Care Provider [phone] CHRIS SPEAR Unavailable Unavaila ble Allergies No Known Allergies Results Component Value Reference Range Notes Ultrasound : Kidneys, Bilate ral Reviewed date:10/28/2025 12:29:50 PM Interpretation: Performing Lab: Notes/Report: Ultrasound : Thyroid Reviewed date:10/28/2025 12:29:50 PM Interpretation: Performing Lab: Notes/Report: Reason For Referral Reason thyroid US Diagnosis 1 Hypothyroidism, unsp ecified type (E03.9) Referral Organization [facility] AL ROOT Referring Provider First Name Chris Referring Provider Last Name Elvie Referring Provider Speciality [facility] ctice Referred Organization [facility] Referred Address [address] [place] [address],[place] Referred Provider Specialty Diagnostic R adiology General Notes Sarah Mcmillan 2024 10:55:05 AM >sent to [facility] to schedule appt Referral Priority Routine Reason renal US Diagnosis 1 Right renal mass (N2 8.89) Referral Organization [facility] Referring Provider First Name Chris Referring Provider Last Name Elvie Referring Provider [facility] ctice Referred Organization [facility] Referred Address [address] [facility] [address] [place], [place],[address],[place] Referred Provider Specialty Diagnostic R adiology General Notes Sarah Mcmillan 2024 10:55:27 AM >sent to [facility] to schedule appt Referral Priority Routine Reason LDCT chest after Diagnosis 1 Personal history of tobacco use (Z87.891) Referral Organization [facility] Referring Provider First Name Chris Referring Provider Last Name Elvie Referring Provider Speciality Family Brigida hernandez Referred Organization [facility] Referred Address [address] [facility] [address] [facility], [place], [place],[address], Referred Provider Specialty Diagnostic R adiology General Notes Sarah Mcmillan 2024 09:26:45 AM >no auth required for CPT 79065, Sent to [facility] to schedule appt Referral Priority Routine REASON FOR VISIT Yearly Medications Medication SIG (Take, Route, Frequency, Duration) Notes Start Date End Date Status Xarelto 20 MG Tablet 1 tab(s) orally onc e a day (in the evening) Active Sertraline HCl 150 MG CAPSULE 1 CAP(S) ORALLY ONCE A DAY; Duration: 30 DAYS Active Metoprolol Succinate ER 50 MG Tablet Extended Release 24 Hour 1 tab(s) orally once a day; Duration: 90 days Active Pravastatin Sodium 10 MG Tablet 1 tab(s) orally once a day; Duration: 90 days Active Valsartan-hydroCHLOROthiazid e 160-25 MG Tablet 1 tablet Orally Once a day Active Levothyroxine Sodium 200 MCG Tablet 1 tab(s) orally once a day; Duration: 90 days Active traZODone HCl 50 MG Tablet 1 tab orally once a day at bedtime; Duration: 90 days Active Social History Tobacco Use: Social History Observation Description Date Details (start date - stop date) Former Smoker NA - 01/31/2025 Social History Social History Social Info Question Answer Notes Tobacco Control (Standard) Tobacco use: Former smoker When did you stop smoking? 01/31/2025 How long has it been since you last smoked? 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 Travel outside [place]: yes Christine Alcohol: socially Type: , Frequenc y: ,Years: , Determination: Sexually active: yes Recreational drug use: no Exercise: no Home smoke detector use: yes Caffeine: yes frequency:coffee Living Will No Problems Problem Type SNOMED Code ICD Code Onset Dates Problem Status W/U Status Risk Notes Problem Prediabetes (312522308) Prediabetes (R73.03) Active confirmed Problem Obese class II (867434490488370 ) BMI 36.0-36.9,adult (Z68.36) Active confirmed Problem Disorder of kidney and/or ureter (268418601) Right renal mass (N28.89) Active confirmed Vital Signs Temperature 97.8 degrees Fahrenheit 10/11/20 25 Blood pressure systolic 136 mm Hg 10/11/20 25 Blood pressure diastolic 70 mm Hg 025 Heart Rate 60 /min 10/11/2025 Height 70 in 10/11/2025 Weight 254.3 lbs 10/11/2025 BMI 36.48 kg/m2 10/11/2025 Encounters Encounter Location Date Provider Diagnosis [facility] PED TRISHA [address] [place] [address] 10/11/2025 Chris Setvensonence PAF (paroxysmal atri al fibrillation) I48.0 ; [...] - N28.89) seen on CT, recommend US Plan Of Treatment Treatment Notes Assessment Notes [...] 11/25/24 Pending Test Test Name Order Date M-Hemoglobin A1C 10/11/2025 M-Prostate Specific Ag Screen 10/11/2025 M-Free T4 (Free Thyroxine) 10/11/2025 M-Thyroid Stimulating Hormone 10/11/2025 Referrals Referral Date Details 10/11/2025 10/11/2025, thyroid US, [address] [place], [address], 10/11/2025 10/11/2025, renal US , [address] [facility] [place], [address], 10/11/2025 10/11/2025, LDCT yessy st after 11/25/25, [address] [place], [address], Next Appt Details Follow Up: 6 Months, Reason: Medications Administered Medication Instructions Date of Administration Dosage Notes Dexamethasone 4mg Injection 10/11/2025 4 mg History and Physical Notes * Examination Category [...] Provider Referred Provider Not es 10/11/2025 Chris Spear , thyroid US 10/11/2025 Chris Spear , renal US 10/11/2025 Chris Spear , LDCT chest a fter 11/25/25 Progress Notes * Jay HERNANDEZDOB:1965 (6 0 yo M)Acc No.[id number]:10/11/2025 Progress Notes Patient: Jay REIS Provider: DEBORA Neri :1965 A ge:60 Y S ex:Male Date:10/11/2025 Address:[address] [facility] [id number] Subjective: * Chief Complaints: * 1 . [...] pain for a year or better, w orse in certain positions. No radicular pain or [...] Y es. C ARDIOLOGY: Positive for f ollowing with [facility] Cardiology. ? C ONSTITUTIONAL: Weight gain y [...] y es, 1 x. * Medical History: * Surgical History: * Hospitalization/Major Diagno stic Procedure: * Family History: F ather: , kidney disease. M other: alive. P aternal Grand Father: .?Paternal Grand Mother: . M aternal Grand Father: . M aternal Grand Mother: . P aternal uncle: , diagnosed with Diabetes, Heart Disease. P aternal aunt: alive. M aternal aunt: alive. S iblings: alive. C hildren: alive. 1 brother(s) , 1 sister(s) - healthy. 2 son(s) , 1 daughter(s) - healthy. . * Social History: R ecreational drug use: no. Exercise: no. Home smoke detector use: yes. Caffeine: yes, frequency:coffee. Living Will: No. Alcohol: socially, Type: , Frequency: ,Years: , Determination:. Sexually active: yes. Travel outside [place]: yes, Christine. 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 Tobacco Control (Standard) T obacco use: F ormer smoker, W hen did you stop smoking? 0 01/31/2025, H ow long has it been since you last smoked? 1 -5 years. * Medications: T yulig Valsartan-hydroCHLOROthiazide 160-25 MG Tablet 1 tablet Orally [...] P rediabetes - R73.03 9 . B MT 36.0-36.9,adult - Z68.36 1 0. S easonal [...] CPAP? Clinical Notes: continue FU with Dr Riuz, CPAP??6.?Personal history of tobacco use? Notes: no longer smoking but meets criteria for screening, due after 11/25/24? Referral To:Diagnostic Radiology ?Reason:LDCT chest after 11/25/25 7.?Screening PSA (prostate specific antigen)?LAB: M-Prostate Specific Ag Screen8.?Prediabetes?LAB: M-Hemoglobin A1C Clinical Notes: A1C 5.7, recommend repeat and encouraged weight loss efforts?? 9.?Globus sensation?Imaging: Ultrasound : Thyroid* Sarah Mcmillan 10/11/2025 10: 14:08 AM EST > no auth Sandor Castro 10/25/2025 11:01:09 AM EST > Joellen Beltrán 10/28/2025 12:29:33 PM EST > Jc BRENNAN was reviewed by Joellen Beltrán on 10/28/2025 at 12:29 PM EST * Clinical Notes: repeat thyroid US, consider CT neck pending those results and if any progression ofsymptoms??10.?Right renal mass?Imaging: Ultrasound : Kidneys, Bilateral* Sarah Mcmillan 10/11/2025 10: 13:46 AM EST > No auth Sandor Castro 10/25/2025 11:01:47 AM EST > Joellen Beltrán 10/28/2025 12:29:33 PM EST > Jc BRENNAN was reviewed by Joellen Beltrán on 10/28/2025 at 12:29 PM EST * Clinical Notes: seen on CT, recommend US? Referral To:Diagnostic Radiology ?Reason:renal US * Therapeutic Injections: Dexamethasone 4mg Injection : 4 mg (Route: Intramuscular) given by CLARENCE Bazan on left deltoid * Procedure Codes: J 1100 Dexamethasone Sodium Phosphate 4mg Injection, 17988 THERAPEUTIC ADMINISTRATION * Preventive Medicine: Immunizations: P neumococcal e ncouraged. I nfluenza u p to date for season. T dap U TD. S hingrix U TD. C OVID C ompleted series. R SV vaccination D iscussed, will consider. Screening / Special Tests: C olonoscopy 2 023, [facility], normal. P SA d esires screening. L fer Cancer Screening d ue in . * Follow Up: 6 Months * * Sign off status: Completed true * Provider: DEBORA Neri Date: 12/11/2024 Generated for Tonia car/Brian/Tai on: 03:32 PM EST
--- OUTSIDE RECORDS SUMMARY | 2025-10-13 04:23 | XMS_ITS ---
Author Organization [facility] Address [address] [place] [address] Care Team Providers Care Supervisor Ordnance Truck Installation Name Role Phone Elvie Arlene Primary Care Provider [phone] ARLENE BERMEO Unavailable Unavaila ble REASON FOR VISIT Ct scan Encounters Encounter Location Date Provider Diagnosis [facility] [address] [place], [place] [address] 10/13/2025 Arlene Bermeo Personal history of tobacco use Z87.891 Assessments Encounter Date Diagnosis (ICD Code) Assessment Notes Treatment Notes Treatment Clinical Notes Section Notes 10/13/2025 Personal history of tobacco use (ICD-10 - Z87.891) Plan Of Treatment Pending Test Test Name Order Date CT Scan : Chest, Lung Cancer Screening 1 12/13/2024 Progress Notes * Jay KNIGHTDOB:1965 ([age] yo M)Acc No.[id number]:10/13/2025 Patient: Jay REIS :1965 A ge:60 Y S ex:Male [facility] [facility] [facility] [place] [address] Subjective: * Chief Complaints: * C t scan * Medical History: * Surgical History: * Hospitalization/Major Diagno stic Procedure: * Medications: Objective: * Vitals: * Physical Examination: Assessment: * Assessment: 1. P ersonal history of tobacco use - Z87.891 Plan: * Treatment: * * Procedure Codes: * true * Date: Generated for Tonia car/Brian/Tai on: 03:32 PM EST
--- NOTE | 2025-11-26 15:32 | CT_ITS ---
FINAL REPORT TECHNIQUE: Thin section axial images were obtained through the lungs using a low-dose technique per lung cancer screening protocol. Reconstruction images were obtained using the axial data. Exam was performed using dose reduction technique. This study was performed with techniques to keep radiation doses as low as reasonably achievable (ALARA). Individualized dose reduction techniques using automated exposure control or adjustment of mA and/or kV according to the patient's size were employed. CLINICAL HISTORY: SCREENING FORMER SMOKER QUIT 4-5 YEARS AGO SMOKED 1/2 PACK X 30 YEARS LUNCH CANCER HX IN MATERNAL GRANDFATHER CTDI :2.90 DLP:103.68 COMPARISON: 11/25/2024 FINDINGS: CTDLvol: 2.90 DLP: 103.68 Former smoker, quit 4-5 years ago 15 pack year history Lungs: No acute pulmonary abnormality. There is a stable 4 mm right upper lobe nodule seen best on image #33 of series 4. The previously seen right lower lobe nodule now appears vascular. There is a separate right lower lobe nodule best seen on image #45 of series 4, measuring 3 to 4 mm in size, also stable. No new nodules, masses, or consolidation is noted. Lymph nodes: No thoracic lymphadenopathy. Mediastinum: Heart size is normal. Pleura/pericardium: No pleural or pericardial effusion. Other: No acute abnormality in the upper abdomen. IMPRESSION: Stable nodules as described. Lung RADS: 2 Recommendation: 12-month follow-up LDCT. Reviewed, Interpreted and Dictated by Maritza Portillo MD Transcribed by Jessica Su Authenticated and [facility]
--- OUTSIDE RECORDS SUMMARY | 2025-11-26 15:32 | XMS_ITS | Patient Health Record ---
Author Organization [facility] Address [address] [place] [address] [place] [address] Care Team Providers Care Baler Operator Name Role Phone Elvie Chris Primary Care Provider CHRIS BERMEO Unavailable Unavaila ble Migration, Provider Unavailable Unavailable Allergies No Known Allergies Results Component Value Reference Range Flag Notes Urinalysis Reviewed date:03/03/2025 05:30:47 PM Interpretation: Performing Lab: Notes/Report: Color/Clarity anthony Leuk neg Nitrite neg Urobili 0.2 Protein neg pH 5.5 Blood trace-intact Sp. Gr. >=1.030 Ketone neg Bili neg Glucose neg URINALYSIS, COMPLETE (5346) Reviewed date:03/05/2025 12:44:35 PM Interpretation: Performing Lab:CB, [facility] [id number] [id number] Harris Bains Notes/Report: NON-FASTING COLOR YELLOW YELLOW N APPEARANCE CLEAR CLEAR N SPECIFIC GRAVITY 1.024 1.001-1.035 N PH < OR = 5.0 5.0-8.0 N GLUCOSE NEGATIVE NEGATIVE N BILIRUBIN NEGATIVE NEGATIVE N KETONES NEGATIVE NEGATIVE N OCCULT BLOOD NEGATIVE NEGATIVE N PROTEIN NEGATIVE NEGATIVE N NITRITE NEGATIVE NEGATIVE N LEUKOCYTE ESTERASE NEGATIVE NEGATIVE N WBC NONE SEEN < OR = 5 /HPF N RBC NONE SEEN < OR = 2 /HPF N SQUAMOUS EPITHELIAL CELLS NONE SEEN < OR = 5 /HPF N BACTERIA NONE SEEN NONE SEEN /HPF N HYALINE CAST NONE SEEN NONE SEEN /LPF N NOTE This urine was analyzed for the presence of WBC, RBC, bacteria, casts, and other formed elements. Only those elements seen were reported. TSH W/REFLEX TO FT4 ([id number]) Reviewed date:03/05/2025 12:44:56 PM Interpretation: Performing Lab:[facility], [facility] [id number], [place] Harris Ramiro Bains Notes/Report: NON-FASTING TSH W/REFLEX TO FT4 3.50 0.40-4.50 mIU/L N Ultrasound : Kidneys, Bilate ral Reviewed date:10/28/2025 12:29:50 PM Interpretation: Performing Lab: Notes/Report: Ultrasound : Thyroid Reviewed date:10/28/2025 12:29:50 PM Interpretation: Performing Lab: Notes/Report: X ray : Spines, Lumbosacral Reviewed date:12/11/2024 09:41:38 PM Interpretation: Performing Lab: Notes/Report: M-Hemoglobin A1C Reviewed date:12/13/2024 12:15:32 PM Interpretation: Performing Lab: Notes/Report: HGBA1C 5.7 4.0-6.0 % N < 6% Non-Diabetic Level < 7% Controlled Diabetic Level > 8% Poorly Controlled Diabetic Level M-Prostate Specific Ag Scree n Reviewed date:11/18/2025 03:56:19 PM Interpretation: Performing Lab: Notes/Report: PSASC 5.3 0.0-4.0 ng/ml H Reason For Referral Reason thyroid US Diagnosis 1 Hypothyroidism, unsp ecified type (E03.9) Referral Organization [facility] Referring Provider First Name Chris Referring Provider Last Name Elvie [facility] Referred Organization [facility] Referred Address [address] [facility] [address] [place], [place],[address],[place] Referred Provider Specialty Diagnostic R adiology General Notes Sarah Mcmillan 2024 10:55:05 AM >sent to [facility] to schedule appt Referral Priority Routine Reason renal US Diagnosis 1 Right renal mass (N2 8.89) Referral Organization [facility] Referring Provider First Name Chris Referring Provider Last Name Elvie Referring Provider [facility] ctice Referred Organization [facility] Referred Address [address] [facility] [address] [place], [place],[address],[place] Referred Provider Specialty Diagnostic R adiology General Notes Sarah Mcmillan 2024 10:55:27 AM >sent to [facility] to schedule appt Referral Priority Routine Reason LDCT chest after Diagnosis 1 Personal history of tobacco use (Z87.891) Referral Organization [facility] Referring Provider First Name Chris Referring Provider Last Name Elvie Referring Provider Speciality Family Brigida hernandez Referred Organization [facility] Referred Address [address] [facility] [address] [facility], [place], Referred Provider Specialty Diagnostic R adiology General Notes Sarah Mcmillan 2024 09:26:45 AM >no auth required for CPT 92474, Sent to [facility] to schedule appt Referral Priority Routine Medications Medication SIG (Take, Route, Frequency, Duration) Notes Start Date End Date Status Valsartan-hydroCHLOROthiazid e 160-25 MG Tablet 1 tablet Orally Once a day Active Xarelto 20 MG Tablet 1 tab(s) orally onc e a day (in the evening) Active Sertraline HCl 100 MG Tablet TAKE ONE (1 ) AND ONE HALF (1/2) TABLET BY MOUTH ONCE A DAY; Duration: 30 Active Levothyroxine Sodium 200 MCG Tablet 1 tab(s) orally once a day; Duration: 90 days Active Metoprolol Succinate ER 50 MG Tablet Extended Release 24 Hour 1 tab(s) orally once a day; Duration: 90 days Active traZODone HCl 50 MG Tablet 1 tab orally once a day at bedtime; Duration: 90 days Active Pravastatin Sodium 10 MG Tablet 1 tab(s) orally once a day; Duration: 90 days Active Immunizations Vaccine Route Administration Date Status Comme nts Flublok IM Intramuscular 11/05/2024 Administered FLUZONE 6MO - OLDER IM Intramuscular 11/13/2023 Administer ed Social History Tobacco Use: Social History Observation Description Date Details (start date - stop date) Former Smoker NA - 01/31/2025 Social History Social History Social Info Question Answer Notes Tobacco Control (Standard) Tobacco use: Former smoker When did you stop smoking? 01/31/2025 How long has it been since you last smoked? 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 Travel outside [place]: yes Christine Alcohol: socially Type: , Frequenc y: ,Years: , Determination: Sexually active: yes Recreational drug use: no Exercise: no Home smoke detector use: yes Caffeine: yes frequency:coffee Living Will No Problems Problem Type SNOMED Code ICD Code Onset Dates Problem Status W/U Status Risk Notes Problem Essential hypertension (85514998) Essential hypertension (I10) Active confirmed Problem Obese class II (714939819562759) BMI 36.0-36.9,adult (Z68.36) Active confirmed Problem Hypothyroidism (29883929) Hypothyroidism, unspecified type (E03.9) Active confirmed Problem Obstructive sleep apnea syndrome (92832189) VINH on CPAP (G47.33) Active confirmed Problem Prediabetes (881355373) Prediabetes (R73.03) Active confirmed Problem Disorder of kidney and/or ureter (476606379) Right renal mass (N28.89) Active confirmed Problem Atrial fibrillation (74057000) PAF (paroxysmal atrial fibrillation) (I48.0) Active confirmed Problem Mixed hyperlipidemia (920775191) Mixed dyslipidemia (E78.2) Active confirmed Problem Seasonal allergic rhinitis (019800009) Seasonal allergic rhinitis, unspecified trigger (J30.2) Active confirmed Vital Signs Heart Rate 60 /min 10/11/2025 Temperature 97.8 degrees Fahrenheit 10/11/2025 Blood pressure diastolic 70 mm Hg 10/11/2025 Height 70 in 10/11/2025 Blood pressure systolic 136 mm Hg 10/11/2025 Weight 254.3 lbs 10/11/2025 BMI 36.48 kg/m2 10/11/2025 Encounters Encounter Location Date Provider Diagnosis [facility] [address] [place] [facility] [address] [place] [address] 03/01/2025 Provider Migration [facility] [address] [place] [facility] [address] [facility] [address] [place], [place] [address] 03/03/2025 Chris Elvie Essential hypertension I10 ; Hypothyroidism, unspecified type E03.9 ; Nocturia R35.1 ; Seasonal allergic rhinitis, unspecified trigger J30.2 and Mid back pain on right side M54.9 [facility] [address] [place] [facility] [address] [facility] [address] [place] [address] 10/11/2025 Chris Bermeo PAF (paroxysmal atrial fibrillation) I48.0 ; Routine medical exam Z00.00 ; Essential hypertension I10 ; Hypothyroidism, unspecified type E03.9 ; VINH on CPAP G47.33 ; Personal history of tobacco use Z87.891 ; Screening PSA (prostate specific antigen) Z12.5 ; Prediabetes R73.03 ; BMI 36.0-36.9,adult Z68.36 ; Seasonal allergic rhinitis, unspecified trigger J30.2 ; Globus sensation R09.A2 and Right renal mass N28.89 [facility] [address] [place] [address] 11/28/2024 Chris Elvie [facility] [address] [place] [address] 12/09/2024 Chris Elvie Lumbar back pain M54.50 [facility] [address] [place] [address] 09/15/2025 Chris Elvie [facility] [address] [place] [address] 09/25/2025 Chris Elvie [facility] [address] [place] [address] 10/11/2025 Chris Elvie [facility] [address] [place] [address] 10/13/2025 Chris Elvie Personal history of tobacco use Z87.891 Assessments [...] Continue AC and beta letitia, cardiology FU 10/13/2025 Personal history of tobacco use (ICD-10 - Z87.891) 10/11/2025 Essential hypertension (ICD-10 - I10) well controlled 03/03/2025 Nocturia (ICD-10 - R35.1) may be secondary to higher dose of HCTZ. PSA normal in October and prior TEGAN by urology negative but has been some time ago. UA today with trace blood, will send to lab for microscopic exam. 03/03/2025 Seasonal allergic rhinitis, unspecified trigger (ICD-10 [...] massage, use of OTC topical analgesics, chiropracter 10/11/2025 Personal history of tobacco use (ICD-10 [...] on CT, recommend US Plan Of Treatment Pending Test Test Name Order Date M-Complete Blood Count Auto Diff 024 M-Urinalysis and Microscopic 11/05/2024 M-Comprehensive Metabolic Panel 11/05/20 24 M-Hemoglobin A1C 10/11/2025 M-Hemoglobin A1C 11/28/2024 M-Lipid Panel 11/05/2024 M-Prostate [...] Start Date Coverage End Date [facility] [address] [place] [address] [id number] Jay Knight Self - patient is the insured Medications Administered Medication Instructions Date of Administration Dosage Notes Dexamethasone 4mg Injection 03/03/2025 4 mg Dexamethasone 4mg Injection 10/11/2025 4 mg Medical (General) History Medical History History ICD Code HTN Hyperlipidemia Depression Sleep Apnea - on CPAP Atrial fibrillation, followed by [facility] car diology Tobacco use Surgical History Surgery Date(Month/Year) low back surgery 2005 lt torn meniscus 2019 lt knee partial replacment 2022 Appendectomy 2019 scope on bowels 2021 Hospitalization History Reason Date(Month/Year) Appendectomy 2019
--- OUTSIDE RECORDS SUMMARY | 2025-11-26 15:32 | XMS_ITS | Clinical Summary ---
Author Organization [facility] Address [address] [place] [address] Care Team Providers Care Hand Cloth Folder Name Role Phone Odin Vergara MD Primary [...] VACCINE 06/27/2025 Medical Devices Implanted Type Area Forder Operator Device Identifier Shelf Expiration Date Model / Serial / Lot Reload Stplr [place] Flex Gst Stnd 60 Wht - [id number] Implanted:Qty : 1 on 06/10/2020 by Kumar Savage MD at [facility] Implant N/A: Abdomen [employer] 11/26/2022 [id number] / / [id number] Reload [place] Flex Gst Reg 3.6mm Alfred - [id number] Implanted:Qty : 1 on 06/10/2020 by Kumar Savage MD at [facility] Implant N/A: Abdomen [employer] 02/24/2023 [id number] / / [id number] Insurance 2009 [facility] [id number] [facility] PPO Member Subscriber Plan / Payer (Ef fective 2014-Present) Name:Jay Knight Jr. Relation to Subscriber:Self Name:Jay Knight Jr. Payer ID:[id number] (NAIC) Type:Not on file Address: [facility] [id number] [place] [id number] Advance Directives * CPR (Attempt to Resuscitate) (Latest Code Status on File) Date Activated Date Inactivated Comments 06/10/2020 7:46 PM 2020 1:16 PM Question Answer Comments Code Status (Patient has no pulse and is not breathing): CPR (Attempt to Resuscitate) Medical Interventions (Patie nt has pulse or is breathing): Full Level Of Support Discussed With: Patient Care Teams Hand Cloth Folder Relationship Specialty Start Date End Date Odin Vergara MD PCP - General Family Medicine 06/10/20
--- OUTSIDE RECORDS SUMMARY | 2025-11-26 15:32 | XMS_ITS | Referral Summary ---
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
--- OUTSIDE RECORDS SUMMARY | 2025-11-26 15:32 | XMS_ITS | Clinical Summary ---
Author Organization [employer] 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 [address] [facility] [id number] BLUE CROSS/BLUE SHIELD Care Teams Buyer Tobacco Head Relationship Specialty Start Date End Date Jewels Moreira, INSURANCE OFFICE MANAGER [address] [place] [id number] PCP - General Nurse Practitioner 01/02/23
--- OUTSIDE RECORDS SUMMARY | 2025-11-26 15:32 | XMS_ITS | Clinical Summary ---
Author Organization [facility] Address [address] [place] [address] Care Team Providers Care President Celebrity Acquistion Name Role Phone Unavailable Primary Care Provider [...]
== END 2025-11-26 23:59 | disposition home or self-care (01) ==
LOC: RAD 15:30
PROVIDERS: PCP Nurse Practitioner Family; Visit Provider Nurse Practitioner Family
DX: Z12.2 Encounter for screening for malignant neoplasm of respiratory organs (principal); Z87.891 Personal history of nicotine dependence; R91.8 Other nonspecific abnormal finding of lung field; Z80.1 Family history of malignant neoplasm of trachea, bronchus and lung
CPT/HCPCS: 71271